=== PATIENT | female | born 1990 | race Caucasian/White ===

== ENCOUNTER 2024-07-14 03:47 | Emergency (ER) | payer OTHER, SELFPAY ==
[2024-07-14 03:51] VITALS: BP 133/88; PULSE 96; TEMP 36.6; O2SAT 96; BMI 34.5
--- NOTE | 2024-07-14 04:00 | ECG_ITS ---
[facility] Test Date: 2024-07-14 Pat Name: MEHNAZ GILLILAND Department: Room: - Gender: Female Tank Pumper Panelboard: : 1990 Requested By: [id number] Order Number: [id number] Reading MD: MEGHANA CERVANTES Measurements Intervals [place] Rate: 103 P: 45 NM: 170 QRS: 35 QRSD: 88 T: 36 QT: 330 QTc: 390 Interpretive Statements 1120 Sinus tachycardia 2420 RSR (QR) in lead V1/V2, consistent with right ventricular conduction delay 3434 Septal myocardial infarction, age undetermined 9150 abnormal ECG No previous ECG available for comparison Electronically Signed On 07-14-2024 20:55:41 EDT by MEGHANA CERVANTES
--- NOTE | 2024-07-14 04:12 | ED_ITS ---
HPI HPI - General Adult General Chief complaint: Upper Respiratory Infection Stated complaint: vomiting Time Seen by Provider: 07/14/24 04:09 Source: patient Mode of arrival: walk-in Limitations: no limitations History of Present Illness HPI narrative: history of hysterectomy and oophorectomy due to endometriosis. Uterus removed last year and ovaries removed about 2 weeks ago. Now presents with recurrent vomiting since around 3pm yesterday. No hematemsis or diarrhea. no fever or chills. Additionally complains of sharp left chest pain radiating into her shoulder and lasting a few minutes Related Data Home Medications ?Medication ?Instructions ?Recorded ?Confirmed conjugated estrogens 0.3 mg tablet mg 07/14/24 (Premarin) loratadine 10 mg tablet 10 mg PO DAILY 07/14/24 07/14/24 (Allerclear) minocycline 50 mg capsule mg 07/14/24 montelukast 10 mg tablet mg 07/14/24 pantoprazole 40 mg tablet,delayed mg PO 07/14/24 release Allergies Allergy/AdvReac Type Severity Reaction Status Date / Time aspirin Allergy Unknown Abdominal Verified 07/14/24 03:55 Pain meloxicam [From Mobic] Allergy Unknown Abdominal Verified 07/14/24 03:55 Pain omeprazole [From Prilosec] Allergy Unknown Abdominal Verified 07/14/24 03:55 Pain oxycodone [From Percocet] Allergy Abdominal Verified 07/14/24 03:55 Pain propoxyphene Allergy Abdominal Verified 07/14/24 03:55 [From Darvocet-N] Pain Opioid HPI Opioid Management Most Recent Opioid Data: No Data to Display Review of Systems ROS Status of ROS 10 or more systems reviewed and unremark able except as noted in history and below PFSH PFSH Social History Little interest or pleasure in doing things: not at all Feeling down, depressed, or hopeless: not at all Exam Constitutional Vital Signs, click to edit/add: Last Vital Signs Temp 97.8 F 07/14/24 03:51 Pulse 96 H 07/14/24 03:51 Resp 18 07/14/24 03:51 BP 133/88 07/14/24 03:51 Pulse Ox 96 07/14/24 03:51 O2 Del Method Room Air 07/14/24 03:51 Common normals: no apparent distress, average body habitus, oriented x3, no limitations, healthy appearing, alert and well nourished [facility] Common normals: normocephalic and head/scalp atraumatic Eye Common normals: PERRL, EOMs intact bilaterally, conjunctivae normal and no scleral icterus Chest Common normals: inspection of chest normal and palpation of chest normal Respiratory Common normals: normal respiratory effort, no retractions, no use of accessory muscles and clear to auscultation bilaterally Cardio Common normals: regular rate, regular rhythm, S1 normal heart sound and S2 normal heart sound GI Common normals: Normal to inspection, nondistended, normoactive bowel sounds present and soft to palpation Other: mild tenderness lower quad related to recent surgey Extremity Common normals: normal to inspection and full ROM Neuro Common normals: oriented x3, CN's II-XII intact bilaterally, moves all extremities and no focal motor deficits Psych Appearance: grossly normal Course Vital Signs Vital signs: Vital Signs Temperature 97.8 F 07/14/24 03:51 Pulse Rate 96 H 07/14/24 03:51 Respiratory Rate 18 07/14/24 03:51 Blood Pressure 133/88 07/14/24 03:51 Pulse Oximetry 96 07/14/24 03:51 Oxygen Delivery Method Room Air 07/14/24 03:51 Temperature 97.8 F 07/14/24 03:51 Pulse Rate 96 H 07/14/24 03:51 Respiratory Rate 18 07/14/24 03:51 Blood Pressure 133/88 07/14/24 03:51 Pulse Oximetry 96 07/14/24 03:51 Oxygen Delivery Method Room Air 07/14/24 03:51 Medical Decision Making [facility] Narrative Medical decision making narrative: patient presents with recurrent vomiting. labs with mild elevation of alk phos and elevated lactic acid. Patient medicated with zofran and hydrated with IV NS. still has nausea despite zofran. Given phenergan and is feeling better. xray abdomen without worrisome findings. WBC normal. patient now feeling better after 2nd L NS. Discharged home with a prescription of phenergan Lab Data Labs: Lab Results 07/14/24 07/14/24 Range/Units 04:00 05:00 WBC 11.8 H (4.0-11.0) 10^3/uL RBC 4.79 (4.20-5.40) 10^6/uL Hgb 14.5 (12.0-16.0) g/dL Hct 42.2 (36.0-48.0) % MCV 88.1 (81.0-99.0) fL MCH 30.3 (26.7-34.0) pg MCHC 34.4 (29.9-35.2) g/dL RDW 11.8 (11.0-15.0) % Plt Count 332 (150-450) 10^3/uL MPV 8.8 L (9.5-13.5) fL Neut % (Auto) 63.6 (43.0-75.0) % Lymph % (Auto) 27.9 (20.5-60.0) % [place] % (Auto) 6.0 (1.7-12.0) % Eos % (Auto) 1.9 (0.9-7.0) % Baso % (Auto) 0.3 (0.2-2.0) % Neut # (Auto) 7.5 H (1.4-6.5) 10^3/uL Lymph # (Auto) 3.3 (1.2-3.8) 10^3/uL [place] # (Auto) 0.7 (0.3-0.8) 10^3/uL Eos # (Auto) 0.2 (0.0-0.7) 10^3/uL Baso # (Auto) 0.0 (0.0-0.1) 10^3/uL Abs Immat Gran (auto) 0.04 H (0.00-0.03) 10^3/uL Imm/Tot Granulo (auto) 0.3 (0.0-0.5) % D-Dimer 0.42 (<=0.59) mg/L FEU Sodium 133 L (136-145) mmol/L Potassium 3.6 (3.5-5.1) mmol/L Chloride 99 (98-107) mmol/L Carbon Dioxide 24.4 (21.0-32.0) mmol/L Anion Gap 13.2 BUN 13.0 (7.0-18.0) mg/dL Creatinine 0.94 (0.55-1.02) mg/dL Est GFR ( Amer) >60 (>=60 mL/min/1.73m^2) Est GFR (Non-Af Amer) >60 (>=60 mL/min/1.73m^2) BUN/Creatinine Ratio 13.8 Glucose 129 H (74-106) mg/dL Lactate 2.6 H* (0.4-2.0) mmol/L Calcium 9.5 (8.5-10.1) mg/dL Total Bilirubin 0.5 (0.2-1.0) mg/dL Direct Bilirubin 0.1 (0.0-0.2) mg/dL AST 16 (15-37) U/L ALT 39 (14-59) U/L Alkaline Phosphatase 119 H (46-116) U/L Troponin I High Sens <4.0 L (4.0-51.3) pg/mL Total Protein 7.8 (6.4-8.2) g/dL Albumin 3.7 (3.4-5.0) g/dL Globulin 4.1 g/dL Albumin/Globulin Ratio 0.9 Lipase 60.0 (16.0-77.0) U/L Urine Color Lt. yellow (YELLOW) Urine Clarity Clear (CLEAR) Urine pH 7.5 (5.0-9.0) Ur Specific [place] 1.010 (1.005-1.025) Urine Protein Negative (NEG/TRACE) mg/dL Urine Glucose (UA) Negative (NEGATIVE) mg/dL Urine Ketones Negative (NEGATIVE) mg/dL Urine Occult Blood Negative (NEGATIVE) Urine Nitrite Negative (NEGATIVE) Urine Bilirubin Negative (NEGATIVE) Urine Urobilinogen 0.2 (0.2-1.0) EU/dL Ur Leukocyte Esterase Negative (NEGATIVE) Imaging Data Chest x-ray: Radiologist's impression: ITS Impressions Chest/Abdomen X-ray 07/14/24 04:16 IMPRESSION: 1. Clear lungs. 2. Normal bowel gas pattern. 3. No free air or suspicious abdominal or pelvic findings. Electronically authenticated by: MARIO SALEEM Date: 07/14/2024 05:00 Abdominal x-ray: Radiologist's impression: ITS Impressions Chest/Abdomen X-ray 07/14/24 04:16 IMPRESSION: 1. Clear lungs. 2. Normal bowel gas pattern. 3. No free air or suspicious abdominal or pelvic findings. Electronically authenticated by: MARIO SALEEM Date: 07/14/2024 05:00 Discharge Plan Discharge Chief Complaint: Upper Respiratory Infection Clinical Impression: Gastroenteritis Patient Disposition: Home, Self-Care Prescriptions / Home Meds: No Action pantoprazole 40 mg tablet,delayed release (DR/EC) PO minocycline 50 mg capsule montelukast 10 mg tablet Premarin 0.3 mg tablet loratadine [Allerclear] 10 mg tablet 10 mg PO DAILY Print Language: German Instructions: Acute Nausea and Vomiting (ED) Referrals: GRETEL MORALEZ [Primary Care Provider] - 1 week
--- NOTE | 2024-07-14 04:16 | XR_ITS ---
The [address] [address] Patient Name: MEHNAZ GILLILAND MRN: [id number] date: 1990 Sex: F Assigned Patient Location: ER Current Patient Location: ER Accession/Order Number: [id number] Exam Date: 07/14/2024 04:30 Report Date: 07/14/2024 05:00 At the request of: ENRIQUE RDZ Procedure: XR acute abdomen series EXAMINATION: XR acute abdomen series HISTORY: vomiting COMPARISON: No relevant comparison available. FINDINGS: LUNGS: No infiltrate, pneumothorax, or pleural effusion. MEDIASTINUM: No abnormal widening. BOWEL GAS PATTERN: Non-obstructed. FREE AIR: None. CALCIFICATIONS: None significant. BONES: No fracture or visible bone lesion. OTHER: Negative. XR/XR acute abdomen series IMPRESSION: 1. Clear lungs. 2. Normal bowel gas pattern. 3. No free air or suspicious abdominal or pelvic findings. Electronically authenticated by: MARIO SALEEM Date: 07/14/2024 05:00
[2024-07-14 04:22] LABS: Basophils Percent Auto 0.3 % (0.2-2.0); Eosinophils Absolute Auto 0.2 10^3/uL (0.0-0.7); Eosinophils Percent Auto 1.9 % (0.9-7.0); Hematocrit 42.2 % (36.0-48.0); Hemoglobin 14.5 g/dL (12.0-16.0); Immature Granulocytes Abs Auto 0.04 10^3/uL (0.00-0.03); Immature Granulocytes Pct Auto 0.3 % (0.0-0.5); Lymphocytes Absolute Auto 3.3 10^3/uL (1.2-3.8); Lymphocytes Percent Auto 27.9 % (20.5-60.0); Mean Corpuscular HGB Conc 34.4 g/dL (29.9-35.2); Mean Corpuscular Hemoglobin 30.3 pg (26.7-34.0); Mean Corpuscular Volume 88.1 fL (81.0-99.0); Mean Platelet Volume 8.8 fL (9.5-13.5); Monocytes Absolute Auto 0.7 10^3/uL (0.3-0.8); Neutrophils Absolute Auto 7.5 10^3/uL (1.4-6.5); Neutrophils Percent Auto 63.6 % (43.0-75.0); Platelet Count 332 10^3/uL (150-450); Red Blood Count 4.79 10^6/uL (4.20-5.40); Red Cell Distribution Width 11.8 % (11.0-15.0); White Blood Count 11.8 10^3/uL (4.0-11.0)
[2024-07-14 04:32] LABS: D Dimer 0.42 mg/L FEU (<=0.59)
[2024-07-14] MEDS: ONDANSETRON PF 4 MG/2 ML VIAL IV (04:32)
[2024-07-14] MEDS: 0.9 % SODIUM CHLORIDE 1,000 ML 999 ML IV ×2 (04:32→05:40)
[2024-07-14 04:37] LABS: Alanine Aminotransferase 39 U/L (14-59); Albumin Globulin Ratio 0.9; Albumin Level 3.7 g/dL (3.4-5.0); Alkaline Phosphatase 119 U/L (46-116); Anion Gap 13.2; Aspartate Amino Transferase 16 U/L (15-37); BUN Creatinine Ratio 13.8; Bilirubin Direct 0.1 mg/dL (0.0-0.2); Bilirubin Total 0.5 mg/dL (0.2-1.0); Calcium 9.5 mg/dL (8.5-10.1); Carbon Dioxide 24.4 mmol/L (21.0-32.0); Chloride 99 mmol/L (98-107); Estimated GFR (African America >60 (>=60 mL/min/1.73m^2); Estimated GFR (Non-African Ame >60 (>=60 mL/min/1.73m^2); Globulin 4.1 g/dL; Glucose 129 mg/dL (74-106); Potassium 3.6 mmol/L (3.5-5.1); Sodium 133 mmol/L (136-145); Total Protein 7.8 g/dL (6.4-8.2); Troponin I High Sensitivity <4.0 pg/mL (4.0-51.3)
[2024-07-14 04:40] LABS: Lactate/Lactic Acid 2.6 mmol/L (0.4-2.0)
[2024-07-14 05:10] LABS: Bilirubin Urine NEGATIVE (NEGATIVE); Blood Urine NEGATIVE (NEGATIVE); Clarity Urine CLEAR (CLEAR); Color Urine LT. YELLOW (YELLOW); Glucose Urine UA NEGATIVE (NEGATIVE); Ketones Urine NEGATIVE (NEGATIVE); Leukocyte Esterase Urine NEGATIVE (NEGATIVE); Nitrite Urine NEGATIVE (NEGATIVE); Protein Urine NEGATIVE (NEG/TRACE); Urobilinogen Urine 0.2 EU/dL (0.2-1.0); pH Urine 7.5 (5.0-9.0)
[2024-07-14 05:11] LABS: Urine Microscopic Indicated NO
[2024-07-14] MEDS: PROMETHAZINE HCL 25 MG in 0.9 % SODIUM CHLORIDE 50 ML 204 MG IV (05:40)
== END 2024-07-14 06:44 | disposition home or self-care (01) ==
PROVIDERS: Emergency Provider Internal Medicine; PCP Internal Medicine
DX: K52.9 Noninfective gastroenteritis and colitis, unspecified (principal); Z90.710 Acquired absence of both cervix and uterus; Z90.722 Acquired absence of ovaries, bilateral
CPT/HCPCS: 36415; 74022; 80053; 80076; 81003; 83605; 83690; 84484; 85025; 85378; 93005; 96361; 96365; 96375; 99285; J2250; J2405

== ENCOUNTER 2025-05-30 19:16 | Emergency (ER) | payer OTHER, SELFPAY ==
--- OUTSIDE RECORDS SUMMARY | 2016-07-14 11:15 | XMS_ITS | Encounter Summary ---
Author Organization [facility] Address [address], [address] [place] [address] Care Team Providers Care Cutlet Maker Pork Name Role Phone Yamil Nunes MD Primary Care Provider [phone] [phone] Encounter Details Date Type Department Care Team (Late st Contact Info) Description 07/14/2016 11:15 AM EDT Hospital Encounter [facility] [address] [place] [address] Yamil Nunes MD [address] [place] [address] [place] Social History Tobacco Use Types Packs/Day Years Used Date Smoking Tobacco: Former Cigarettes Q uit: 01/13/2006 Smokeless Tobacco: Never Alcohol Use Standard Drinks/Week Comments No 0 (1 standard drink = 0.6 oz pur e alcohol) [facility] Utilities Answer Date Recorded In the past 12 months has [employer] electric, gas, oil, or water company threatened to shut off services in your home? No 12/09/2024 Overall Financial Resource Strain (CARDIA) Answe r Date Recorded How hard is it for you to pa y for the very basics like food, housing, medical care, and heating? Not hard at all 06/18/2024 PHQ-2 Answer Date Recorded PHQ-9 Total Score 0 01/22/2025 Hunger Vital Sign Answer Date Recorded Within the past 12 months, y ou worried that your food would run out before you got the money to buy more. Never true 06/18/20 24 Within the past 12 months, t he food you bought just didn't last and you didn't have money to get more. Never true 06/18/2024 PRAPARE - Transportation Answer Date Re corded Lack of Transportation (Medical) Not on file 06/18/2024 In the past 12 months, has l ack of transportation kept you from meetings, work, or from getting things needed for daily living? No 06/18/2024 Housing Stability Vital Sign Answer Shar e Recorded Unable to Pay for Housing in the Last Year Not o n file 02/12/2024 Number of Places Lived in the Last Year Not on f ile 02/12/2024 In the last 12 months, was t here a time when you did not have a steady place to sleep or slept in a usp (including now)? No 02/12/2024 Housing Stability Vital Sign Answer Shar e Recorded Unable to Pay for Housing in the Last Year Not o n file 12/09/2024 In the past 12 months, how m any times have you moved where you were living? 0 12/09/2024 At any time in the past 12 m onths, were you homeless or living in a usp (including now)? No 12/09/2024 Food Insecurity Answer Date Recorded Within the past 12 months, y ou worried that your food would run out before you got the money to buy more. 1 12/09/2024 Within the past 12 months, t he food you bought just didn't last and you didn't have money to get more. 1 12/09/2024 Interpersonal Safety Domain Source: IP Abuse Scr eening Answer Date Recorded Physical abuse Denies 07/05/2024 Verbal abuse Denies 07/05/2024 Emotional abuse Denies 07/05/2024 Financial abuse Denies 07/05/2024 Sexual abuse Denies 07/05/2024 Comments No Sex and Gender Information Value Date Recorded Sex Assigned at Female 12/09/2024 6:54 AM EST Legal Sex Female 6:58 PM EST Gender Identity Female 12/09/2024 6:54 AM EST Sexual Orientation Straight 12/09/2024 6: 54 AM EST COVID-19 Exposure Response Date Recorded In the last 10 days, have yo u been in contact with someone who was confirmed or suspected to have Coronavirus/COVID-19? No / Unsure 01/16/2023 7:12 AM EDT documented as of this encounter [place] Notes * [place] - 07/14/2016 1:30 PM EDT [facility] Outpatient Physical Therapy Daily Note Patient: Denise Harley : 1990 Referring Practitioner: Yamil Nunes MD Referral Date : 05/30/16 Date: 07/14/2016 Referring Practitioner: Yamil Nunes MD Referral Date : 05/30/16 Diagnosis: R shoulder pain Onset Date: 12/07/15 (Getting progressively worse since that time.) PT Insurance Information: [place] Total # of Visits Approved: 12 Per Physician Order Total # of Visits to Date: 10 No Show: 0 Canceled Appointment: 0 Pre-Treatment Pain: 11/18 Subjective: 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 Exercises/Modalities/Manual: See DocFlow Sheet Assessment Assessment: Tnenderness biceps tendon. Strength has improved as well as ROM but cont to aggervaite shld during work duties. Flexion 4+/5. Patient Education Patient Education: Reviewed impingement zones Pt verbalized/demonstrated good understanding: [x] Yes [] No, pt required further clarification. Plan Plan: Plan of care initiated Goals (Total # of Visits to Date: 10) Short Term Goals - Time Frame for Short term goals: 3 weeks Short term goal 1: Pt will be prescribed and educated on HEP--met Short term goal 2: Pt will demonstrate R shoulder flexion AROM 100 degrees to allow for less difficulty with work-related tasks.--met Knife Grinder Goals - Time Frame for waxer floor goals : 6 weeks waxer floor goal 1: Pt will be independent with HEP for maintenance of progress made with PT. senior living goal 2: Pt will demonstrate R shoulder AROM WNL in all planes for ease of reaching overhead and dressing. waxer floor goal 3: Pt will demo min TTP of R corocoid and pec musculature for improved functional mobility. waxer floor goal 4: Pt will report </= 4/10 pain on average in R shoulder for ease of washing hairand reaching overhead. Post Treatment Pain: 2/10 Time In: 1115 Time Out: 1200 Timed Code Treatment Minutes: 45 Minutes Total Treatment Time: 45 Minutes [place] Date: 07/14/2016 Cosigned by Sheyla Prieto, PT at 07/20/2016 8:45 AM EDT documented in this encounter Plan of Treatment Upcoming Encounters Date Type Department Care Team (Late st Contact Info) Description 06/20/2025 2:30 PM EDT Office Visit Leanna Nunes MD [facility] [address] [place] [address] Mariola Jovel APRN - RN [facility] INPATIENT SERVICES [address] [place] [address] annual wellness; f.u. labs 07/03/2025 1:00 PM EDT Office Visit [facility] OBSTETRICS & GYNECOLOGY Part [address] [place] [address] Ling Davidson APRN - ELLEN [address] [place] [address] [address] [place] [address] 4 month med check. 07/29/2025 12:40 PM EDT Office Visit [facility] Kidney and Hypertension [address] [place] [address] Jonathon Shane MD [address] [place] [address] [address] [place], [place] [id number] 4 month follow up; decreased urine output; labs 03/10/2026 1:15 PM EDT Office Visit [facility] OBSTETRICS & [facility]YNECOLOGY Part of [address] [place] [address] Ling Davidson APRN - [address] [place], [place] [phone] yearly documented as of this encounter Visit Diagnoses Not on filedocumented in this encounter Care Teams Cutlet Maker Pork Relationship Specialty Start Date End Date Yamil Nunes MD [address] [place] [address] PCP - General Internal Medicine 01/04/16 01/20/25 documented as of this encounter
--- OUTSIDE RECORDS SUMMARY | 2016-07-29 10:15 | XMS_ITS | Encounter Summary ---
Author Organization [facility] Address [address], [address] [place] [address] Care Team Providers Care Firesetter Name Role Phone Yamil Nunes MD Primary Care Provider [phone] Encounter Details Date Type Department Care Team (Late st Contact Info) Description 07/29/2016 10:15 AM EDT Hospital Encounter [facility] Physical [facility] [address] [place] [address] Yamil Nunes MD [address] [place] [address] Lucy Qureshi, PT Social History Tobacco Use Types Packs/Day Years Used Date Smoking Tobacco: Former Cigarettes Q uit: 01/13/2006 Smokeless Tobacco: Never Alcohol Use Standard Drinks/Week Comments No 0 (1 standard drink = 0.6 oz pur e alcohol) [facility] Utilities Answer Date Recorded In the past 12 months has [employer] electric, gas, oil, or water company threatened [...] place to sleep or slept in a skilled nursing (including now)? No 02/12/2024 Housing Stability Vital Sign Answer Shar e Recorded Unable to Pay for Housing in the Last Year Not o n file 12/09/2024 In the past 12 months, how m any times have you moved where you were living? 0 12/09/2024 At any time in the past 12 m onths, were you homeless or living in a skilled nursing (including now)? No 12/09/2024 Food Insecurity Answer [...] as of this encounter [facility] Notes * QureshiLucy, PT - 07/29/2016 10:54 AM EDT [facility] Outpatient Physical Therapy Daily Note Patient: Denise Harley : 1990 Referring Practitioner: Yamil Nunes MD Referral Date : 05/30/16 Date: 07/29/2016 Referring Practitioner: Yamil Nunes MD Referral Date : 05/30/16 Diagnosis: R shoulder pain Onset Date: 12/07/15 (Getting progressively worse since that time.) PT Insurance Information: [place] Total # of Visits Approved: 20 Per Physician Order Total # of Visits to Date: 12 No Show: 0 Canceled Appointment: 1 Pre-Treatment Pain: 3/10 Subjective: Pt continues to report a 3/10 pain in her SHLD. Pt states she saw Dr. Kemp and he is suggesting an MRI upon insurance approval and to continue with therapy until then. Exercises/Modalities/Manual: See DocFlow Sheet Assessment Assessment: Pt completed all exercises with good tolerance Patient Education Patient Education: reviewed HEP Pt verbalized/demonstrated good understanding: [x] Yes [] No, pt required further clarification. Plan Plan: Continue with current plan Goals (Total # of Visits to Date: 12) Short Term Goals - Time Frame for Short term goals: 3 weeks Short term goal 1: Pt will be prescribed and educated on HEP--met Short term goal 2: Pt will demonstrate R shoulder flexion AROM 100 degrees to allow for less difficulty with work-related tasks.--met Correction Goals - Time Frame for alf goals : 6 weeks terminal block assembler goal 1: Pt will be independent with HEP for maintenance of progress made with PT. --MET. terminal block assembler goal 2: Pt will demonstrate R shoulder AROM WNL in all planes for ease of reaching overhead and dressing.- progressing alf goal 3: Pt will demo min TTP of R corocoid and pec musculature for improved functional mobility.- progressing alf goal 4: Pt will report </= 4/10 pain on average in R shoulder for ease of washing hairand reaching overhead.--progrressing Post Treatment Pain: 3/10 Time In: 1012 Time Out: 1052 Timed Code Treatment Minutes: 40 Minutes Total Treatment Time: 40 Minutes Lucy Qureshi Date: 07/29/2016 documented in this encounter Plan of Treatment Upcoming Encounters Date Type Department Care Team (Late st Contact Info) Description 06/20/2025 2:30 PM EDT Office Visit [facility] [address] [place] [address] Mariola Jovel APRN - NUCLEAR MEDICINE TECHNOLOGIST [address] [place] [address] annual wellness; f.u. labs 07/03/2025 1:00 PM EDT Office Visit [facility] OBSTETRICS & GYNECOLOGY [address] [address] Ling Davidson APRN - CNDavid [address] [place] [address] Dr [address] [place] [address] 4 month med check. 07/29/2025 12:40 PM EDT Office Visit [facility] Kidney and Hypertension [address] [place] [address] Jonathon Shane MD [address] [place] [address] [address] [place], [place] [id number] 4 month follow up; decreased urine output; labs 03/10/2026 1:15 PM EDT Office Visit [facility] OBSTETRICS & GYNECOLOGY [address] [place] [address] Ling Davidson APRN - CNDavid [address] [place] [address] Dr Sal [address] [place] [address] yearly documented as of this encounter Visit Diagnoses Not on filedocumented in this encounter Care Teams Firesetter Relationship Specialty Start Date End Date Yamil Nunes MD [address] [place] [address] PCP - General Internal Medicine 01/04/16 01/20/25 documented as of this encounter
--- OUTSIDE RECORDS SUMMARY | 2016-08-02 10:45 | XMS_ITS | Encounter Summary ---
Author Organization [facility] Address [address], [address] [place] [address] Care Team Providers Care Truck Terminal Manager Name Role Phone Yamil Nunes MD Primary Care Provider [phone] [phone] Encounter Details Date Type Department Care Team (Late st Contact Info) Description 08/02/2016 10:45 AM EDT Hospital Encounter [facility] Physical Therapy [address] [place] [address] Yamil Nunes MD [address] [place] [address] [place] Social History Tobacco Use Types Packs/Day Years Used Date Smoking Tobacco: Former Cigarettes Q uit: 01/13/2006 Smokeless Tobacco: Never Alcohol Use Standard Drinks/Week Comments No 0 (1 standard drink = 0.6 oz pur e alcohol) [facility] Utilities Answer Date Recorded In the past 12 months has [employer] electric, gas, oil, or water company threatened [...] place to sleep or slept in a mcfp (including now)? No 02/12/2024 Housing Stability Vital Sign Answer Shar e Recorded Unable to Pay for Housing in the Last Year Not o n file 12/09/2024 In the past 12 months, how m any times have you moved where you were living? 0 12/09/2024 At any time in the past 12 m onths, were you homeless or living in a mcfp (including now)? No 12/09/2024 Food Insecurity Answer [...] encounter [place] Notes * [place] - 08/02/2016 11:29 AM EDT [facility] Outpatient Physical Therapy Daily Note Patient: Denise Harley : 1990 Referring Practitioner: Yamil Nunes MD Referral Date : 05/30/16 Date: 08/02/2016 Referring Practitioner: Yamil Nunes MD Referral Date : 05/30/16 Diagnosis: R shoulder pain Onset Date: 12/07/15 (Getting progressively worse since that time.) PT Insurance Information: [place] Total # of Visits Approved: 20 Per Physician Order Total # of Visits to Date: 13 No Show: 0 Canceled Appointment: 1 Pre-Treatment Pain: 2/10 Subjective: 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 Exercises/Modalities/Manual: See DocFlow Sheet Assessment Assessment: Strength is 4+/5 in right shld . Has MRI next monday, plan to cont with scapular strengthening as tolerated Patient Education Patient Education: reviewed HEP Pt verbalized/demonstrated good understanding: [x] Yes [] No, pt required further clarification. Plan Plan: Continue with current plan Goals (Total # of Visits to Date: 13) Short Term Goals - Time Frame for Short term goals: 3 weeks Short term goal 1: Pt will be prescribed and educated on HEP--met Short term goal 2: Pt will demonstrate R shoulder flexion AROM 100 degrees to allow for less difficulty with work-related tasks.--met Guidance Director Goals - Time Frame for roasterman goals : 6 weeks M[facility] goal 1: Pt will be independent with HEP for maintenance of progress made with PT. --MET. MCC goal 2: Pt will demonstrate R shoulder AROM WNL in all planes for ease of reaching overhead and dressing.- progressing MCC goal 3: Pt will demo min TTP of R corocoid and pec musculature for improved functional mobility.- progressing MCC goal 4: Pt will report </= 4/10 pain on average in R shoulder for ease of washing hairand reaching overhead.--progrressing Post Treatment Pain: 2/10 Minutes Time Calculation Start Time: 1045 Stop Time: 1130 Time Calculation: 45 [place] Date: 08/02/2016 Cosigned by Sheyla Prieto, PT at 08/03/2016 11:13 AM EDT documented in this encounter Plan of Treatment Upcoming Encounters Date Type Department Care Team (Late st Contact Info) Description 06/20/2025 2:30 PM EDT Office Visit Leanna Nunes MD [facility] [address] [place] [address] Mariola Jovel APRN - CNP [address] [place] [address] annual wellness; f.u. labs 07/03/2025 1:00 PM EDT Office Visit [facility] OBSTETRICS & GYNECOLOGY [address] [place] [address] Ling Davidson APRN - ELLEN [address] [place] [address] Dr Sal [address] [place] [address] 4 month med check. 07/29/2025 12:40 PM EDT Office Visit [facility] Kidney and Hypertension [address] [place] [address] Jonathon Shane MD [address] [place] [address] [address] [place], [place] [phone] 4 month follow up; decreased urine output; labs 03/10/2026 1:15 PM EDT Office Visit [facility] OBSTETRICS & GYNECOLOGY [address] [place] [address] Ling Davidson APRN - ELLEN [address] [place] [address] Dr [address] [place] [address] yearly documented as of this encounter Visit Diagnoses Not on filedocumented in this encounter Care Teams Truck Terminal Manager Relationship Specialty Start Date End Date Yamil Nunes MD [address] [place] [id number] PCP - General Internal Medicine 01/04/16 01/20/25 documented as of this encounter
--- OUTSIDE RECORDS SUMMARY | 2016-08-08 11:45 | XMS_ITS | Encounter Summary ---
Author Organization [facility] Address [address] [place] [address] Care Team Providers Care Plumbing And Heating Contractor Name Role Phone Yamil Nunes MD Primary Care Provider [phone] [phone] Encounter Details Date Type Department Care Team (Late st Contact Info) Description 08/08/2016 11:45 AM EDT Hospital Encounter [facility] Physical Therapy [address] [place] [address] Yamil Nunes MD [address] [place] [address] Sheyla Jarvis, JOSE Social History Tobacco Use Types Packs/Day Years Used Date Smoking Tobacco: Former Cigarettes Q uit: 01/13/2006 Smokeless Tobacco: Never Alcohol Use Standard Drinks/Week Comments No 0 (1 standard drink = 0.6 oz pur e alcohol) [facility] Utilities Answer Date Recorded In the past 12 months has [employer] electric, gas, oil, or water company threatened [...] place to sleep or slept in a assisted (including now)? No 02/12/2024 Housing Stability Vital Sign Answer Shar e Recorded Unable to Pay for Housing in the Last Year Not o n file 12/09/2024 In the past 12 months, how m any times have you moved where you were living? 0 12/09/2024 At any time in the past 12 m [place], were you homeless or living in a assisted (including now)? No 12/09/2024 Food Insecurity Answer [...] as of this encounter [place] Notes * Sheyla Prieto, PT - 08/08/2016 12:25 PM EDT [facility] Outpatient Physical Therapy Daily Note Patient: Denise Harley : 1990 Referring Practitioner: Yamil Nunes MD Referral Date : 05/30/16 Date: 08/08/2016 Referring Practitioner: Yamil Nunes MD Referral Date : 05/30/16 Diagnosis: R shoulder pain Onset Date: 12/07/15 (Getting progressively worse since that time.) PT Insurance Information: [place] Total # of Visits Approved: 20 Per Physician Order Total # of Visits to Date: 15 No Show: 0 Canceled Appointment: 1 Pre-Treatment Pain: 0/10 Subjective: Pt states she has an MRI on Monday. Pt denies pain upon arrival. Exercises/Modalities/Manual: See DocFlow Sheet Assessment Assessment: Pt reports pain with seated cybex rows, therefore deferred this ex. Pt performs body blade with arm at side as well as 90 degrees shoulder flexion; pt has minor discomfort in shoulder with flexed position. Patient Education Patient Education: Proper form with new exercises. Pt verbalized/demonstrated good understanding: [x] Yes [] No, pt required further clarification. 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 --MET. local company intermodal truck driver goal 2: Pt will demonstrate R shoulder AROM WNL in all planes for ease of reaching overhead and dressing.- progressing local company intermodal truck driver goal 3: Pt will demo min TTP of R corocoid and pec musculature for improved functional mobility.- progressing local company intermodal truck driver goal 4: Pt will report </= 4/10 pain on average in R shoulder for ease of washing hairand reaching overhead.--progrressing Post Treatment Pain: 0/10 Time Calculation Start Time: 1145 Stop Time: 1223 Time Calculation: 38 Sheyla Prieto PT, DPT Date: 08/08/2016 documented in this encounter Plan of Treatment Upcoming Encounters Date Type Department Care Team (Late st Contact Info) Description 06/20/2025 2:30 PM EDT Office Visit Leanna Nunes MD [facility] [address] [place] [address] Mariola Jovel APRN - CNP [address] [place] [address] annual wellness; f.u. labs 07/03/2025 1:00 PM EDT Office Visit [facility] OBSTETRICS & GYNECOLOGY [address] [place] [address] Ling Davidson APRN - ELLEN [address] [place] [address] Dr Sal [address] [place] [address] 4 month med check. 07/29/2025 12:40 PM EDT Office Visit [facility] Kidney and Hypertension [address] [place] [address] Jonathon Shane MD [address] [place] [address] [address] [place] [address] 4 month follow up; decreased urine output; labs 03/10/2026 1:15 PM EDT Office Visit [facility] OBSTETRICS & GYNECOLOGY [address] [place] [address] Ling Davidson, FABIÁN - CNDavid [address] [place] [address] Dr [address] [place] [address] yearly documented as of this encounter Visit Diagnoses Not on filedocumented in this encounter Care Teams Plumbing And Heating Contractor Relationship Specialty Start Date End Date Yamil Nunes MD [address] [place] [id number] PCP - General Internal Medicine 01/04/16 01/20/25 documented as of this encounter
--- OUTSIDE RECORDS SUMMARY | 2016-08-15 09:30 | XMS_ITS | Encounter Summary ---
Author Organization [facility] Address [address], [address] [place] [address] Care Team Providers Care Booster Pump Operator Name Role Phone Yamil Nunes MD Primary Care Provider [phone] Encounter Details Date Type Department Care Team (Late st Contact Info) Description 08/15/2016 8:30 AM [facility] Hospital Encounter [facility] [address] [place] [address] Yamil Nunes MD [address] [place] [address] Sheyla Jarvis, JOSE Social History Tobacco Use Types Packs/Day Years Used Date Smoking Tobacco: Former Cigarettes Q uit: 01/13/2006 Smokeless Tobacco: Never Alcohol Use Standard Drinks/Week Comments No 0 (1 standard drink = 0.6 oz pur e alcohol) [facility] Utilities Answer Date Recorded In the past 12 months has [employer] electric, gas, oil, or water company threatened [...] place to sleep or slept in a chcf (including now)? No 02/12/2024 Housing Stability Vital Sign Answer Shar e Recorded Unable to Pay for Housing in the Last Year Not o n file 12/09/2024 In the past 12 months, how m any times have you moved where you were living? 0 12/09/2024 At any time in the past 12 m onths, were you homeless or living in a chcf (including now)? No 12/09/2024 Food Insecurity Answer [...] AM EDT documented as of this encounter Discharge Summaries * Sheyla Prieto, PT - 10/19/2016 3:29 PM EST [facility] Outpatient Physical Therapy Discharge Summary Patient: Denise Harley : 1990 Referring physician: Yamil Nunes MD Referring Practitioner: Yamil Nunes MD Diagnosis: R shoulder pain Date Treatment Initiated: 06/07/16 Date of Last Treatment: 08/15/16 PT Visit Information Onset Date: 12/07/15 (Getting progressively worse since that time.) PT Insurance Information: [employer] Total # of Visits Approved: 20 Total # of Visits to Date: 17 Plan of Care/Certification Expiration Date: 08/30/16 No Show: 1 Canceled Appointment: 1 Frequency/Duration Days: 2 times per week Weeks: 6 weeks Treatment Received [x]HP/CP [x]Electrical Stim [x]Therapeutic Exercise []Gait Training []Aquatics [x]Ultrasound [x]Patient Education/HEP []Manual Therapy []Traction []Neuro-jeannine []Soft Tissue Mobs []Home TENS []Iontophoresis []Orthotic casting/fitting []Dry Needling Assessment Assessment: Pt has completed 17 PT visits with initial evaluation on 06/07/16. Pt has been receivinginterventions including therapeutic exercise, manual therapy, US, IFC and cold pack modalities to address R shoulder pain. At pt's last visit on 08/15/16, pt stated she was returning to doctor to review MRI results. Pt had one additional PT appointment scheduled following, with potential plan for hold on PT. Pt cancelled last appointment. At pt's last treatment on 08/15/16, pt cont to have difficulty raising arm overhead; Pt reports average pain level about 1/10 in R shoulder. Pt demo AROM R shoulder flexion 122, ABD 92 with pain at end range. Pt cont to be tender in anterior R shoulder jt nearbiceps insertion. Due to pt cancelling last appointment and failing to schedule additional apopintment, pt will be D/C from PT at this time. Goals Short term goals Time Frame for Short term goals: 3 weeks Short term goal 1: Pt will be prescribed and educated on HEP--met Short term goal 2: Pt will demonstrate R shoulder flexion AROM 100 degrees to allow for less difficulty with work-related tasks.--met detention goals Time Frame for lobsterman goals : 6 weeks detention goal 1: Pt will be independent with HEP for maintenance of progress made with PT. --MET. detention goal 2: Pt will demonstrate R shoulder AROM WNL in all planes for ease of reaching overhead and dressing.- progressing detention goal 3: Pt will demo min TTP of R corocoid and pec musculature for improved functional mobility.- progressing lobsterman goal 4: Pt will report </= 4/10 pain on average in R shoulder for ease of washing hairand reaching overhead.--progrressing- met Reason for Discharge [] Goals Achieved [] Poor Follow Through/Attendance [] Optimal Function Achieved [x] Patient Discharged Self [] Hospitalization [] Physician discharge Thank you for this referral Sheyla Prieto PT, DPT Date: 10/19/2016 documented in this encounter Progress Notes * Sheyla Prieto, PT - 08/15/2016 4:28 PM EST [facility] Outpatient Physical Therapy Daily Note Patient: Denise Harley : 1990 Referring Practitioner: Yamil Nunes MD Referral Date : 05/30/16 Date: 08/15/2016 Referring Practitioner: Yamil Nunes MD Referral Date : 05/30/16 Diagnosis: R shoulder pain Onset Date: 12/07/15 (Getting progressively worse since that time.) PT Insurance Information: [employer] Total # of Visits Approved: 20 Per Physician Order Total # of Visits to Date: 17 No Show: 0 Canceled Appointment: 1 Pre-Treatment Pain: 2/10 Subjective: Pt states she had her MRI done on her shoulder and goes back tomorrow to review results. Pt states she is sore in the shoulder from the needle and also states that she had a bad reaction to the radiation. Pt states her shoulder swelled at the time but swelling has subsided. Current painlevel 2/10. Exercises/Modalities/Manual: See DocFlow Sheet Assessment Assessment: Pt cont to have difficulty raising arm overhead; therefore added pulleys to treatment this date for additional shoulder stretching and mobilization. Pt RTD tomorrow after therapy. Pt instructed on tentative plan to place pt on hold and to call to schedule more appointments if needed following visit with doctor. Patient Education Patient Education: Tentative plan for placing pt on hold and to call and schedule more appointmentsfollowing visit with doctor as instructed. Pt verbalized/demonstrated good understanding: [x] Yes [] No, pt required further clarification. Plan Plan: Continue with current plan Goals (Total # of Visits to Date: 17) Short Term Goals - Time Frame for Short term goals: 3 weeks Short term goal 1: Pt will be prescribed and educated on HEP--met Short term goal 2: Pt will demonstrate R shoulder flexion AROM 100 degrees to allow for less difficulty with work-related tasks.--met [facility]pc Goals - Time Frame for lobsterman goals : 6 weeks lobsterman goal 1: Pt will be independent with HEP for maintenance of progress made with PT. --MET. detention goal 2: Pt will demonstrate R shoulder AROM WNL in all planes for ease of reaching overhead and dressing.- progressing lobsterman goal 3: Pt will demo min TTP of R corocoid and pec musculature for improved functional mobility.- progressing detention goal 4: Pt will report </= 4/10 pain on average in R shoulder for ease of washing hairand reaching overhead.--progrressing- met Post Treatment Pain: 210 Time Calculation Start Time: 829 Stop Time: 912 Time Calculation: 43 Sheyla Prieto PT, DPT Date: 08/15/2016 documented in this encounter Plan of Treatment Upcoming Encounters Date Type Department Care Team (Late st Contact Info) Description 06/20/2025 2:30 PM EDT Office Visit Leanna Nunes MD [address] [address] Mariola Jovel APRN - CODING COMPLIANCE MANAGER [address] [place] [address] annual wellness; f.u. labs 07/03/2025 1:00 PM EDT Office Visit [facility] [address] [place] [address] Ling Davidson APRN - CNM [address] [place] [address] [address] [place] [address] 4 month med check. 07/29/2025 12:40 PM EDT Office Visit [facility] [address] [place] [address] Jonathon Shane MD [address] [place] [address] [address] [place], [place] [id number] 4 month follow up; decreased urine output; labs 03/10/2026 1:15 PM EDT Office Visit [facility] Part of [address] [place] [address] Ling Davidson, FURNACE ATTENDANT - CN[address] [place] [address] yearly documented as of this encounter Visit Diagnoses Not on filedocumented in this encounter Care Teams Booster Pump Operator Relationship Specialty Start Date End Date Yamil Nunes MD [address] [place] [address] PCP - General Internal Medicine 01/04/16 01/20/25 documented as of this encounter
--- OUTSIDE RECORDS SUMMARY | 2025-02-14 12:30 | XMS_ITS ---
Author Organization [facility] Address [address] [facility] [facility] [place] [address] Care Team Providers Care Service Crew Supervisor Name Role Phone Valerie Gresham Primary Care Provider [phone] Dr. Josse Dillard [facility] [phone] REASON FOR VISIT FILLING Encounters Encounter Location Date Provider Diagnosis [facility] [address] [facility] [place] [address] 02/14/2025 Josse Dillard Plan Of Treatment No Information Progress Notes * MEHNAZ GILLILAND MDOB:[birth year] (34 yo F)Acc No.[id number]:02/14/2025 Patient: [facility] Provider: Colleen Dillard DDS :1990 A ge:34 Y S ex:Female Date:02/14/2025 Address[address] Pcp:Valerie Holm Subjective: * Chief Complaints: * 1 . FILLING. * Medical History: Objective: * Vitals: Assessment: Plan: * Treatment: * Images: * Electronic signature of Dr. Josse Dillard , DMD on 05/30/2025 at 07:22 PM EDT Sign off status: Pending * Provider: Colleen Dillard DDS Date: 0 02/14/2025 Generated for Printi ng/Faxing/eTransmitting on: 0 05/30/2025 07:22 PM EDT
--- OUTSIDE RECORDS SUMMARY | 2025-05-30 19:22 | XMS_ITS | Clinical Summary ---
Author Organization [facility] Address [address] [place] [address] Care Team Providers Care Software Analyst Name Role Phone Yamil Nunes MD Primary Care Provider Yamil Alvares DO Unavailable [phone] Allergies Active Allergy Reactions Criticality Noted Date Comments Acetaminophen 03/11/2025 Other Reaction(s): ate lining of stomach Aspirin Nausea And Vomiting Low 05/07/2021 Meloxicam GI intolerance 10/23/2024 Omeprazole GI bleeding,Nausea Only Low 11/17/2012 Other Reaction(s): Unknown Tears up her stomach Oxycodone Other Low 07/14/2024 Other Reaction(s): Other (See Comments), Sweat GI bleed Oxycodone-Acetaminophen GI intolerance 10/23/19 25 Propoxyphene 08/30/2023 Other Reaction(s): ate lining of stomach Medications pantoprazole (ProtoNix) 40 MG EC tablet Active CALCIUM-PHOSPHORU S-VITAMIN D PO Take by mouth 4 Active montelukast (Singulair) 10 MG tablet Take 10 mg by mouth at bedtime Active fish oil ([place]-3) 500 MG capsule Take 500 mg by mouth in the morning. 4 08/09/20 25 Active vitamin E (E200) capsule Take 100 Units by mouth in the morning. Active beclomethasone (Qnasl) 80 MCG/ACT aerosol solutionIndicatio ns:Vasomotor rhinitis,Chronic rhinitis Administer 2 sprays into each nostril Daily 8.7 g 11 4 Active mometasone-formot bentley (Dulera) 100-5 MCG/ACT inhalerIndication s:Mild intermittent asthma without complication (HCC) Inhale 2 puffs in the morning and 2 puffs before bedtime. Rinse mouth with water after use to reduce aftertaste and incidence of candidiasis. Do not swallow.. 13 g 11 4 09/12/20 25 Active ipratropium (Atrovent) 0.06 % nasal sprayIndications: Vasomotor rhinitis,Chronic rhinitis Administer 2 sprays into each nostril in the morning and 2 sprays in the evening and 2 sprays before bedtime. 15 mL 11 4 Active loratadine (Claritin) 10 MG tablet Take 10 mg by mouth Daily Active sertraline (Zoloft) 25 MG tablet Take 25 mg by mouth Daily Active acebutolol (Sectral) 200 MG capsule Take 200 mg by mouth in the morning and 200 mg before bedtime. Active albuterol HFA 90 mcg/act inhaler Inhale 2 puffs every 4 (four) hours if needed for wheezing Active OXcarbazepine (Trileptal) 150 MG tabletIndications :Chronic migraine without aura without status migrainosus, not intractable Take 1 tablet (150 mg) by mouth in the morning and 1 tablet (150 mg) before bedtime. 60 tablet 3 5 01/01/20 26 Active Ute 0.075 MG/24HR APPLY 1 PATCH TOPICALLY TWICE A WEEK 5 Active Active Problems Problem Noted Date Diagnosed Date Asthma 03/11/2025 Dysmenorrhea 03/11/2025 Endometriosis 03/11/2025 Encounter to discuss test results 01/09/2025 Mixed hyperlipidemia 01/09/2025 Family history of syncope 09/19/2024 Syncope and collapse 09/19/2024 Abnormal EKG 08/08/2024 Body mass index (BMI) of 37.0 to 37.9 in adult 1 Dizziness 08/08/2024 Never smoked tobacco 08/08/2024 Other chest pain 08/08/2024 Palpitations 08/08/2024 Shortness of breath 08/08/2024 Post-op pain 01/16/2023 Encounters Date Type Department Care Team Description 04/02/2025 11:20 AM EDT Office Visit [facility] [address] [place] [address] Valentine Galarza MD Dizziness (Primary Dx) 04/02/2025 Bamboo flowsheet [facility] [address] [place] [address] Valentine Galarza MD 04/02/2025 Travel 03/26/2025 External Result Encounter [facility] External Department Unsolicited Valentine Galarza MD 03/12/2025 1:40 PM EDT Office Visit [facility] [address] [place] [address] Valentine Galarza MD VBI (vertebrobasilar insufficiency) (Primary Dx); Dizziness and giddiness; Bilateral impacted cerumen 03/12/2025 Travel 03/10/2025 9:30 AM EDT Clinical Support [facility] [address] [place] [address] Melvi Jaeger, DEBRA-A Dizziness (Primary Dx) from Last 3 Months Family History Medical History Relation Name Comments Asthma Father Jakob Diabetes Father Jakob Hypertension Father Jakob Asthma Father's Sister Ana Diabetes Father's Sister Ana Tics Father's Sister Ana Asthma Maternal Grandfather Arvind Fainting Maternal Grandfather Arvind Cancer Maternal Grandmother Missy Asthma Mother Kelle Migraines Mother Kelle Colon cancer Paternal Grandfather Rick Diabetes Paternal Grandfather Rick Fainting Paternal Grandfather Rick Breast cancer Paternal Grandmother Roxane Diabetes Paternal Grandmother Roxane Hypertension Paternal Grandmother Roxane Ovarian cancer Paternal Grandmother Roxane Stroke Paternal Grandmother Roxane Asthma Sister Latoya Relation Name Status Comments Father Jakob Father's Sister Ana Alive Maternal Grandfather Arvind Alive Maternal Grandmother Missy Alive Mother Kelle Alive Paternal Grandfather Rick Paternal Grandmother Roxane Sister Latoya Alive Social History Tobacco Use Types Packs/Day Years Used Date Smoking Tobacco: Never Smokeless Tobacco: Never Tobacco Cessation:Counseling Given: Not Answered Alcohol Use Standard Drinks/Week Comments Never 0 (1 standard drink = 0.6 oz pure alcohol) Caffeine intake: 2 cans of pop daily Comments Unknown Sex and Gender Information Value Date Recorded Sex Assigned at Not on file Legal Sex Female 6:55 PM EDT Gender Identity Not on file Sexual Orientation Not on file Last Filed Vital Signs Vital Sign Reading Time Taken Comments Blood Pressure 113/73 04/02/2025 11:23 AM EDT Pulse 74 04/02/2025 11:23 AM EDT Temperature - - Respiratory Rate - - Oxygen Saturation 98% 12/31/2024 11:01 AM EDT Inhaled Oxygen Concentration - - Weight 107 kg (235 lb) 04/02/2025 11:23 AM EDT Height 167.6 cm (5' 6 ) 04/02/2025 11:23 AM EDT Body Mass Index 37.93 04/02/2025 11:23 AM EDT Plan of Treatment Not on file Procedures Procedure Name Priority Date/Time Associated Diagnosis Comments CT ANGIOGRAM NECK 03/26/2025 6:0 4 PM EDT AUDITORY FUNCTION TESTS Routine 03/10/2025 10:16 AM EDT from Last 3 Months Results * CT angiogram neck (03/26/2025 6:04 PM EDT) Anatomical Region Laterality Modality Head, Neck Computed Tomogra phy 03/26/2025 6:04 PM EDT Impressions 03/26/2025 6:12 PM EDT No evidence of focal stenosis, aneurysmal dilatation, dissection or occlusion. Impression dictated by: Og Corcoran M.D. 03/26/2025 6:10 PM Dictation Location: [place] [address] Transcribed By: [facility] 03/26/251809 Dictated By: Og Corcoran II, MD 03/26/251803 Signed By: <Electronically signed by Og Corcoran II, MD in OV> 03/26/251809 Narrative 03/26/2025 6:12 PM EDT [facility] [place] [address] CT Scan Report Signed Patient: Denise Harley MR#: [id number] 435 : 1990 Acct:[id number] Age/Sex: 34 / F ADM Date: 03/26/25 Loc: CT Room: Type: [facility] Attending Dr: Valentine Galarza Jr, MD Copies to: VALENTINE GALARZA MD Ordering Provider: VALENTINE GALARZA MD Date of Service: 03/26/25 CT/CT angio neck: G45.0 ([id number]) CT/CT angio head: G45.0 CT angio head, CT angio neck 03/26/2025 3:17 PM SIGNS AND SYMPTOMS: Dizziness, headache intermittently, vertebrobasilar insufficiency CONTRAST: 90 mL of intravenous Isovue-370 TECHNIQUE: Multi-detector CT angiography axial slices of the head and neck were obtained during intravenous administration of IV contrast material. Sagittal, coronal, and 3-D reconstructions were performed and viewed on a separate workstation. CT was performed with one or more of the following dose reduction techniques: Automated exposure control, adjustment of the mA and/or kV according to patient size, or use of iterative reconstruction technique. Stenoses were measured using the NASCET criteria. COMPARISON: 120 01/18/1935 FINDINGS: CTA HEAD: The superior cerebellar arteries, posterior inferior cerebellar arteries, and the basilar artery are within normal limits. The posterior cerebral arteries are unremarkable. The intracranial segments of the internal carotid arteries are within normal limits. There are normal anterior and middle cerebral arteries. Anterior communicating artery is patent. The left posterior communicating artery is hypoplastic which is a normal variant.. The deep venous system and dural venous systems appear to be patent. No bony abnormalities are appreciated. CTA NECK: There is an aberrant right subclavian artery which is a normal variant.. The subclavian arteries are within normal limits. The vertebral arteries arise from the subclavian arteries and are normal in course and caliber up to the skull base. The common and internal carotid arteries are within normal limits. Visualized lung parenchyma is clear. No acute bony abnormalities are identified. The paraspinous soft tissues are within normal limits. CT/CT angio head Procedure Note Og Corcoran MD - 04/17/2025 [facility] Main [place] [address] [place] [address] CT Scan Report Signed Patient: Denise Harley [facility]#: [id number] 435 : 1990Acct:[id number] Age/Sex: 34 / FADM Date: 03/26/25 Loc: CT Room:Type: [facility] Attending Dr: Valentine Galarza Jr, MD Copies to: VALENTINE GALARZA MD Ordering Provider: VALENTINE GALARZA MD Date of Service: 03/26/25 CT/CT angio neck: G45.0 ([id number]) CT/CT angio head: G45.0 CT angio head, CT angio neck 03/26/2025 3:17 PM SIGNS AND SYMPTOMS: Dizziness, headache intermittently, vertebrobasilarinsufficiency CONTRAST: 90 mL of intravenous Isovue-370 TECHNIQUE: Multi-detector CT angiography axial slices of the head and neckwere obtained during intravenous administration of IV contrast material. Sagittal, coronal, and3-D reconstructions were performed and viewed on a separate workstation. CT was performed with oneor more of the following dose reduction techniques: Automated exposure control, adjustment of themA and/or kV according to patient size, or use of iterative reconstruction technique. Stenoses weremeasured using the NASCET criteria. COMPARISON: 120 01/18/1935 FINDINGS: CTA HEAD: The superior cerebellar arteries, posterior inferior cerebellar arteries,and the basilar artery are within normal limits. The posterior cerebral arteries are unremarkable. The intracranial segments of the internal carotid arteries are withinnormal limits. There are normal anterior and middle cerebral arteries. Anterior communicatingartery is patent. The left posterior communicating artery is hypoplastic which is a normal variant..The deep venous system and dural venous systems appear to be patent. No bony abnormalities are appreciated. CTA NECK: There is an aberrant right subclavian artery which is a normal variant..The subclavian arteries are within normal limits. The vertebral arteries arise from thesubclavian arteries and are normal in course and caliber up to the skull base. The common and internalcarotid arteries are within normal limits. Visualized lung parenchyma is clear. No acute bony abnormalities areidentified. The paraspinous soft tissues are within normal limits. CT/CT angio head IMPRESSION: No evidence of focal stenosis, aneurysmal dilatation, dissection orocclusion. Impression dictated by: Og Corcoran M.D. 03/26/2025 6:10 PM Dictation Location: [place] [address] Transcribed By: [facility] 03/26/251809 Dictated By: Og Corcoran II, MD 03/26/25 180 Signed By: <Electronically signed by Og Corcoran II, MD inOV> 03/26/25 1810 us Valentine Galarza MD IMG CT PROCEDURES Edited Resu lt - Final * Auditory function tests (03/10/2025 10:16 AM EDT) Narrative Melvi Jaeger CCC-A - 03/10/2025 10:16 AM EDT Bilateral Normal hearing us Melvi Jaeger CCC-A AUDIOLOGY SERVICES ORDERA BLES Final Result from Last 3 Months Insurance [employer] Care Teams Software Analyst Relationship Specialty Start Date End Date Yamil Nunes MD [address] [place] [address] PCP - General Internal Medicine 09/23/24 Yamil Alvares DO [address] [facility] [address] [place] [id number] Referring Physician Neurology 10/31/24
--- OUTSIDE RECORDS SUMMARY | 2025-05-30 19:22 | XMS_ITS | Encounter Summary ---
Author Organization [facility] Address [address] [place] [address] Care Team Providers Care Prosthodontist/Owner Name Role Phone Yamil Nunes MD Primary Care Provider [phone] Yamil Alvares DO Unavailable [phone] Reason for Visit * Reason Comments Med Refill Encounter Details Date Type Department Care Team ([facility] st Contact Info) Description 09/10/2024 Refill [facility] [address] [phone] Candelario Kendall MD [address] [address] Chronic rhinitis; Mild intermittent asthma without complication (HCC) Social History Tobacco Use Types Packs/Day Years Used Date Smoking Tobacco: Never Smokeless Tobacco: Never Alcohol Use Standard Drinks/Week Comments Never 0 (1 standard drink = 0.6 oz pure alcohol) Caffeine intake: 2 cans of pop daily Comments Unknown Sex and Gender Information Value Date Recorded Sex Assigned at Not on file Legal Sex Female 6:55 PM EDT Gender Identity Not on file Sexual Orientation Not on file documented as of this encounter Miscellaneous Notes * Telephone Encounter - Candelario Kendall MD - 09/12/2024 2:08 PM EST Sent in documented in this encounter Plan of Treatment Not on file documented as of this encounter Visit Diagnoses Diagnosis Chronic rhinitis Mild intermittent asthma without complication (HCC) documented in this encounter Care Teams Prosthodontist/Owner Relationship Specialty Start Date End Date Yamil Nunes MD [address] [place], [place] [phone] PCP - General Internal Medicine 09/23/24 Yamil Alvares DO [address] [place] [address] Referring Physician Neurology 10/31/24 documented as of this encounter
--- OUTSIDE RECORDS SUMMARY | 2025-05-30 19:22 | XMS_ITS | Encounter Summary ---
Author Organization [facility] Address [address] [place] [address] Care Team Providers Care Fire Management Officer Name Role Phone Yamil Nunes MD Primary Care Provider Yamil Alvares DO Unavailable [phone] Encounter Details Date Type Department Care Team (Late st Contact Info) Description 03/26/2025 External Result Encounter [facility] External Department Unsolicited Valentine Galarza MD [address] [place] [id number] Social History Tobacco Use Types Packs/Day Years [...] on file documented as of this encounter Plan of Treatment Not on file documented as of this encounter Procedures Procedure Name Priority Date/Time Associated Diagnosis Comments CT ANGIOGRAM NECK 03/26/2025 6:0 4 PM EDT documented in this encounter Results * CT angiogram neck (03/26/2025 6:04 PM EDT) Anatomical Region Laterality Modality Head, Neck Computed Tomogra phy 03/26/2025 6:04 PM EDT Impressions 03/26/2025 6:12 PM EDT No evidence of focal stenosis, aneurysmal dilatation, dissection or occlusion. Impression dictated by: Og Corcoran M.D. 03/26/2025 6:10 PM Dictation Location: [facility]-- Transcribed By: [facility] 03/26/251809 Dictated By: Og Corcoran II, MD 03/26/251803 Signed By: <Electronically signed by Og Corcoran II, MD in OV> 03/26/251809 Narrative 03/26/2025 6:12 PM EDT [facility] [place] [address] CT Scan Report Signed Patient: Denise Harley MR#: [id number] 435 : 1990 Acct:[id number] Age/Sex: 34 / F ADM Date: 03/26/25 Loc: CT Room: Type: [facility] Attending Dr: Valentine Galarza Jr, MD Copies to: VALENTINE GALARZA MD Ordering Provider: VALENTINE GALARZA MD Date of Service: 03/26/25 CT/CT angio neck: G45.0 ([id number]) CT/CT angio head: G45.0 CT angio head, [...] Procedure Note Og Corcoran MD - 04/17/2025 [facility] Main [place] [address] [place] [address] CT Scan Report Signed Patient: Denise Harley MMR#: [id number] : 1990Acct:[id number] Age/Sex: 34 / FADM Date: 03/26/25 Loc: CT Room:Type: [facility] Attending Dr: Valentine Galarza Jr, MD Copies to: VALENTINE GALARZA MD Ordering Provider: VALENTINE GALARZA MD Date of Service: 03/26/25 CT/CT angio neck: G45.0 ([id number]) CT/CT angio head: G45.0 CT angio head, [...] Corcoran M.D. 03/26/2025 6:10 PM Dictation Location: [place] [address] Transcribed By: [facility] 03/26/25 1810 Dictated By: Og Corcoran II, MD 03/26/25 180 Signed By: <Electronically signed by Og Corcoran II, MD inOV> 03/26/25 1810 Valentine Galarza MD IMG CT PROCEDURES Edited Resu lt - Final documented in this encounter Visit Diagnoses Not on filedocumented in this encounter Care Teams Fire Management Officer Relationship Specialty Start Date End Date Yamil Nunes MD [address] [place] [phone] PCP - General Internal Medicine 09/23/24 Yamil Alvares DO [address] [place] [phone] Referring Physician Neurology 10/31/24 documented as of this encounter
--- OUTSIDE RECORDS SUMMARY | 2025-05-30 19:23 | XMS_ITS | Encounter Summary ---
Author Organization [facility] Address [address] [facility], [address] [place] [address] Care Team Providers Care Retail Zone Specialist Name Role Phone Mariola Jovel COUNTER INTELLIGENCE AGENT - [employer] Primary Care Provider Reason for Visit * Reason Onset Date Comments Medication Refill 02/04/2021 Encounter Details Date Type Department Care Team (Late st Contact Info) Description [facility] [address] [place] [address] [address] [place] [address] Ling Davidson, COUNTER INTELLIGENCE AGENT [facility] [address] [facility] [address] [place] [address] Medication Refill Social History Tobacco Use Types Packs/Day Years Used Date Smoking Tobacco: Former Cigarettes Q uit: 01/13/2006 Smokeless Tobacco: Never Alcohol Use Standard Drinks/Week Comments No 0 (1 standard drink = 0.6 oz pur e alcohol) PHQ-2 Answer Date Recorded PHQ-2 Score 0 06/05/2019 Comments No Sex and Gender Information Value Date Recorded Sex Assigned at Female 12/09/2024 6:54 AM EST Legal Sex Female 6:58 PM EST Gender Identity Female 12/09/2024 6:54 AM EST Sexual Orientation Straight 12/09/2024 6: 54 AM EST documented as of this encounter Plan of Treatment Upcoming Encounters Date Type Department Care Team (Late st Contact Info) Description 06/20/2025 2:30 PM EDT Office Visit Leanna Rubio [address] [place] [address] Mariola Jovel APRN - CNP [address] [place] [address] annual wellness; f.u. labs 07/03/2025 1:00 PM EDT Office Visit [facility] OBSTETRICS & GYNECOLOGY [address] [place] [address] Ling Davidson, FABIÁN - CNM [address] [place] [address] [address] [place] [address] 4 month med check. 07/29/2025 12:40 PM EDT Office Visit [facility] Kidney and Hypertension [address] [place] [address] Jonathon Shane MD [address] [place] [address] [address] [place] [address] 4 month follow up; decreased urine output; labs 03/10/2026 1:15 PM EDT Office Visit [facility] OBSTETRICS & GYNECOLOGY [address] [place] [address] Ling Davidson, FABIÁN - CNDavid [address] [place] [address] [address] [place] [address] yearly documented as of this encounter Visit Diagnoses Diagnosis Irregular menses Irregular menstrual cycle documented in this encounter Care Teams Retail Zone Specialist Relationship Specialty Start Date End Date Mariola Jovel APRN - CNP [address] [place] [address] PCP - General Internal Medicine 01/21/25 documented as of this encounter
--- OUTSIDE RECORDS SUMMARY | 2025-05-30 19:23 | XMS_ITS | Clinical Summary ---
Author Organization [facility] Address [address] [facility], [address] [place] [address] Care Team Providers Care Automatic Drill Operator Name Role Phone Mariola Jovel ASSISTANT SERVICE MANAGER - CODING CLERK Primary Care Provider Allergies Active Allergy Reactions Criticality Noted Date Comments Aspirin Nausea And Vomiting Low 05/07/2021 Propoxyphene N-Acetaminophen Nausea And Vomiting Low 11/17/2012 Meloxicam Other (See Comments) Low 05/18/2018 Does not remember reaction w this medication Oxycodone Other (See Comments) Low 07/14/2024 GI bleed Oxycodone-Acetaminophen Nausea And Vomiting Low 06/2013 Omeprazole Nausea Only Low 11/17/2012 Tears up her stomach Propoxyphene Other (See Comments) Low 07/14/2024 Pt unsure of reaction Medications Vitamin E LIQD 180 mg by Does not apply route at bedtime Active albuterol (PROVENTIL) (2.5 MG/3ML) 0.083% nebulizer solution Take 3 mLs by nebulization 4 times daily as needed for Wheezing 50 each 3 3 Active DULERA 100-5 MCG/ACT inhaler Inhale 2 puffs into the lungs in the morning and 2 puffs in the evening. Active azelastine (ASTELIN) 0.1 % nasal spray 2 sprays by Nasal route 2 times daily 3 Active QNASL 80 MCG/ACT AERS nasal spray 2 sprays by Each Nostril route 2 times daily 4 Active Calcium-Phospho amy-Vitamin D (CALCIUM/D3 ADULT GUMMIES PO) Take 1,200 mg by mouth in the morning and at bedtime 4 Active Loratadine-Pseu doephedrine (CLARITIN-D 24 HOUR PO) Take 1 tablet by mouth at bedtime 4 Active montelukast (SINGULAIR) 10 MG tablet Take 1 tablet by mouth nightly 90 tablet 3 4 Active albuterol sulfate HFA (PROAIR HFA) 108 (90 Base) MCG/ACT inhaler Inhale 2 puffs into the lungs every 6 hours as needed for Wheezing or Shortness of Breath 1 each 5 4 Active pantoprazole (PROTONIX) 40 MG tablet Take 1 tablet by mouth daily 90 tablet 3 4 Active Leona-3 Fatty Acids (OMEGA 3 PO) Take 1,000 mg by mouth at bedtime Active sertraline (ZOLOFT) 25 MG tablet Take 1 tablet by mouth daily Active OXcarbazepine (TRILEPTAL) 150 MG tablet Take 1 tablet by mouth 2 times daily Active acebutolol (SECTRAL) 200 MG capsule Take 1 capsule by mouth 2 times daily 5 Active ipratropium (ATROVENT) 0.06 % nasal spray 2 sprays by Each Nostril route 4 times daily Active estradiol (VIVELLE) 0.075 MG/24HRIndicati ons:Menopausal symptoms Place 1 patch onto the skin Twice a Week 8 patch 4 5 Active Active Problems Problem Noted Date Diagnosed Date Post-op pain 01/16/2023 Asthma Encounters Date Type Department Care Team Description 04/09/2025 12:55 PM EDT - 04/09/2025 11:59 PM EDT Hospital Encounter [facility] [address] [place] [address] Decreased urine output Discharge Disposition: Home or Self Care 04/09/2025 Telephone [facility] Part of [facility] [address] [facility] [address] [place] [phone] Ling Davidson, FABIÁN - ELLEN 03/28/2025 1:20 PM EDT Office Visit [facility] Hypertension [address] [phone] Jonathon Shane MD Decreased urine output (Primary Dx) 03/05/2025 2:15 PM EDT Office Visit [facility] Part of [facility] [address] [facility] [address] [place] [phone] Ling Davidson, FABIÁN - TAMMIE Encounter for annual routine gynecological examination (Primary Dx); Menopausal symptoms from Last 3 Months Family History Medical History Relation Name Comments Bleeding Prob Father Jakob harley Has a disease of his blood he clots more than normal Deep Vein Thrombosis Father Jakob harley Diabetes Father Jakob harley High Blood Pressure Father Jakob harley Hypertension Father Jakob harley Lung Cancer Maternal Grandfather Cancer Maternal Grandmother leukemi a No Known Problems Mother Breast Cancer Paternal Aunt Cervical Cancer Paternal Aunt Colon Cancer Paternal Grandfather Ricco harley Kidney Cancer Paternal Grandfather Ricco harley Breast Cancer Paternal Grandmother Roxane cricket Cancer Paternal Grandmother Roxane cricket Macular Degen Paternal Grandmother Roxane cricket Stroke Paternal Grandmother Roxane cricket Uterine Cancer Paternal Grandmother Roxane cricket s/p h ysterectomy Relation Name Status Comments Father Jakob harley Alive Maternal Grandfather Maternal Grandmother Mother Alive Other Other Paternal Aunt Alive Paternal Grandfather Ricco harley Paternal Grandmother Roxane harley Alive Sister Alive Social History Tobacco Use Types Packs/Day Years Used Date Smoking Tobacco: Former Cigarettes Q uit: 01/13/2006 Smokeless Tobacco: Never Tobacco Cessation:Counseling Given: Not Answered Alcohol Use Standard Drinks/Week Comments No 0 (1 standard drink = 0.6 oz pur e alcohol) [facility] Utilities Answer Date Recorded In the past 12 months has [employer] POS, gas, oil, or water company threatened to [...] place to sleep or slept in a prison (including now)? No 02/12/2024 Housing Stability Vital Sign Answer Shar e Recorded Unable to Pay for Housing in the Last Year Not o n file 12/09/2024 In the past 12 months, how m any times have you moved where you were living? 0 12/09/2024 At any time in the past 12 m [facility], were you homeless or living in a prison (including now)? No 12/09/2024 Food Insecurity Answer [...] Orientation Straight 12/09/2024 6: 54 AM EST Last Filed Vital Signs Vital Sign Reading Time Taken Comments Blood Pressure 116/78 03/28/2025 1:32 PM EDT Pulse 73 03/28/2025 1:32 PM EDT Temperature 36 C (96.8 F) 03/28/2025 1:26 PM EDT Respiratory Rate 18 03/28/2025 1:26 PM EDT Oxygen Saturation 99% 01/22/2025 2:51 PM EDT Inhaled Oxygen Concentration - - Weight 108.7 kg (239 lb 9.6 oz) 03/28/2025 1:26 PM EDT Height 170.2 cm (5' 7 ) 03/28/2025 1:26 PM EDT Body Mass Index 37.53 03/28/2025 1:26 PM EDT Plan of Treatment Upcoming Encounters Date Type Department Care Team (Late st Contact Info) Description 06/20/2025 2:30 PM EDT Office Visit Leanna Nunes MD [facility] [address] [place] [address] Mariola Jovel APRN - CODING CLERK [address] [place] [address] annual wellness; f.u. labs 07/03/2025 1:00 PM EDT Office Visit [facility] [address] [place] [address] Ling Davidson, FABIÁN - CN[address] [place] [address] 4 month med check. 07/29/2025 12:40 PM EDT Office Visit [facility]ney [facility] Hypertension [address] [place] [phone] Jonathon Shane MD [address] [place] [address] [address] [place] [address] 4 month follow up; decreased urine output; labs 03/10/2026 1:15 PM EDT Office Visit [facility] [address] [place] [address] Ling Davidson, ASSISTANT SERVICE MANAGER - CN [address] [facility] [address] [place] [phone] yearly Health Maintenance Due Date Last Done Comments COVID-19 Vaccine (1 - 2023-2 5 season) 2024 Hepatitis B vaccine (1 of 3 - 19+ 3-dose series) 06/18/2025 Postponed from 2008 (Not Indicated) Depression Screen 01/22/2026 01/22/2025, 01/22/2025 Pneumococcal 0-49 years Vaccine (1 of 2 - PCV) 10/09/2034 Postponed from 2008 (Not Indicated) DTaP/Tdap/Td vaccine (1 - Tdap) 05/16/2037 Postponed from 2008 (Patient Refused) Flu vaccine (#1) 05/16/2037 Postponed f rom 05/09/2025 (Patient Refused) HIV screen Completed 10/09/2013 Cervical cancer screen Discontinued HPV (without or with Pap) Discontinued 03/03/2022 Pap smear Discontinued 03/03/2022, 06/05/2019, 05/23/2018 HPV vaccine (No Doses Required) Completed Hepatitis A vaccine Aged Out No longe r eligible based on patient's age to complete this topic Hepatitis C screen Discontinued Hib vaccine Aged Out No longer eligi ble based on patient's age to complete this topic Meningococcal (ACWY) vaccine Aged Out No longer eligible based on patient's age to complete this topic Meningococcal B vaccine Aged Out No l onger eligible based on patient's age to complete this topic Polio vaccine Aged Out No longer elig ible based on patient's age to complete this topic Varicella vaccine Discontinued Procedures Procedure Name Priority Date/Time Associated Diagnosis Comments BASIC METABOLIC PANEL Routine 04/09/2025 1:05 PM EDT Decreased urine output PROTEIN / CREATININE RATIO, URINE Routine 04/09/2025 1:05 PM EDT Decreased urine output URINALYSIS Routine 04/09/2025 1:04 PM EDT Decreased urine output HPV, HIGH RISK Routine 03/03/2022 5:04 PM EDT PAP SMEAR Routine 03/03/2022 5:04 PM EDT from Last 3 Months or Most Recently Relevant to Health Maintenance Results * Protein / creatinine ratio, urine (04/09/2025 1:05 PM EDT) Total Protein, Urine 11 mg/dL 04/09/2025 1:[address] [facility] Comment:No normal range esta blished. Creatinine, Ur 191.0 28.0 - 217.0 mg/dL 04/09/2025 1:[address] [facility] Urine Total Protein Creatinine Ratio 0.06 0.00 - 0.20 04/09/2025 1:[address] [facility] Urine (Urine) 04/09/2025 1:0 5 PM EDT 04/09/2025 1:06 PM EDT Jonathon Shane MD URINE ORDERABLES Final Result [facility] [address] [phone] * (ABNORMAL) Basic Metabolic Panel (04/09/2025 1:05 PM EDT) Sodium 138 136 - 145 mmol/L 04/09/2025 1:[address] [facility] Potassium 4.3 3.7 - 5.3 mmol/L 04/09/2025 1:[address] [facility] Chloride 103 98 - 107 mmol/L 04/09/2025 1:[address] [facility] CO2 22 20 - 31 mmol/L 04/09/2025 1:[address] [facility] Anion Gap 13 9 - 16 mmol/L 04/09/2025 1:[address] [facility] Glucose 94 74 - 99 mg/dL 04/09/2025 1:[address] [facility] BUN 20 6 - 20 mg/dL 04/09/2025 1:[address] [facility] Creatinine 0.7 0.50 - 0.90 mg/dL 04/09/2025 1:[address] [facility] EstSevero Filt Rate >90 >60 mL/min/1.7 3m2 04/09/2025 1:[address] [facility] Comment: These results are not intended for use in patients <18 years of age. eGFR results are calculated without a race factor using the 2020 CKD-EPI equation. Careful clinical correlation is recommended, particularly when comparing to results calculated using previous equations. The CKD-EPI equation is less accurate in patients with extremes of muscle mass, extra-renal metabolism of creatine, excessive creatine ingestion, or following therapy that affects renal tubular secretion. BUN/Creatinine Ratio 29(H) 9 - 20 04/09/2025 1:[address] [facility] Calcium 8.9 8.6 - 10.4 mg/dL 04/09/2025 1:[address] [facility] Blood BLOOD SPECIMEN / Unknown 04/09/2025 1:05 PM EDT 04/09/2025 1:06 PM EDT us Jonathon Shane MD CHEMISTRY ORDERABLES Final Resu lt [facility] [address] [phone] * (ABNORMAL) Urinalysis (04/09/2025 1:04 PM EDT) Color, UA Yellow Yellow 04/09/2025 1:[address] [facility] Turbidity UA Clear Clear 04/09/2025 1:[address] [facility] Glucose, Ur NEGATIVE NEGATIVE mg/dL 04/09/2025 1:[address] [facility] Bilirubin, Urine NEGATIVE NEGATIVE 04/09/2025 1:[address] [facility] Ketones, Urine NEGATIVE NEGATIVE mg/dL 04/09/2025 1:[address] [facility] Specific [place], UA >1.030(H) 1.010 - 1.020 04/09/2025 1:[address] [facility] Urine Hgb NEGATIVE NEGATIVE 04/09/2025 1:[address] [facility] pH, Urine 6.0 5.0 - 9.0 04/09/2025 1:[address] [facility] Protein, UA NEGATIVE NEGATIVE mg/dL 04/09/2025 1:[address] [facility] Urobilinogen, Urine Normal 0.0 - 1.0 EU/dL 04/09/2025 1:[address] [facility] Nitrite, Urine NEGATIVE NEGATIVE 04/09/2025 1:[address] [facility] Leukocyte Esterase, Urine NEGATIVE NEGATIVE 04/09/2025 1:[address] [facility] Urine URINE SPECIMEN / Unknown 04/09/2025 1:04 PM EDT 04/09/2025 1:05 PM EDT Jonathon Shane MD URINE ORDERABLES Final Result [facility] [address] [phone] * HPV, High Risk (03/03/2022 5:04 PM EDT) HPV, Interpretation NEGATIVE NEGATIVE [facility] HPV, Genotype 16 NEGATIVE [facility] HPV, Genotype 18 NEGATIVE [facility] Other HR HPV Genotypes NEGATIVE [facility] Comment: Testing methodology is real-time PCR utilizing hydrolysis probes with the Dario Nito [id number] system. The test individually detects genotypes 16 and 18, as well as the other 12 high risk types (31,33,35,39,45,51,52,56,58,59,66,68). The expected result is negative. A negative result does not rule out the presence of HPV not included in the genotype set, a low level of infection or specimen sampling error. UNLESS OTHERWISE INDICATED, COMPUTER AIDED AND SANDER SETTER SCREENING PERFORMED. The Pap test is a screening test with an inherent, but low probability of error. Your patient should be reminded to consult you immediately if she experiences any suspicious signs or symptoms, regardless of her Pap test result. An alternate report format containing images or consolidated prior Pap history is available as applicable. Test performed at [facility] [address] [place] [id number] CLIA Number [id number] CAP Accreditation Number [id number] [facility]ology [facility] [address] [place] [address] CLIA No. [id number] CAP Accreditation No. [id number] Crew Lead: Anthony Wright M.D. * EFFECTIVE 03/08/2022 * * PLATFORM CHANGES IN THE MAIN LABORATORY ARE * * ASSOCIATED WITH REFERENCE RANGE CHANGES FOR A NUMBER * * OF ANALYTES. PLEASE REVIEW REFERENCE INTERVALS CAREFULLY * 03/03/2022 5:04 PM EDT 03/05/2022 5:31 AM EDT Narrative [facility] - 03/09/2022 5:53 PM EDT Ordering Provider: LING DAVIDSON Ling Davidson ASSISTANT SERVICE MANAGER - CNM MICROBIOLOGY - G ENERAL ORDERABLES Final Result [facility] * PAP SMEAR (03/03/2022 5:04 PM EDT) Source Cervical -[facility] Slides 1 [facility] Last Menstrual Period 02/24/2022 [facility] Specimen adequacy: [facility] Comment: Satisfactory for evaluation. Endocervical cells/transformation zone component present. Interpretation: SEE NOTE [facility] Comment: NILM/NO EPITH. ABNORMALITY;SEE BELOW NEGATIVE FOR INTRAEPITHELIAL LESION OR MALIGNANCY (NILM) Engine Service Repairer SEE NOTE [facility] Comment:MARIO ALBERTO Ferrara( ASCP)[facility] Location [facility] Comment: Specimens processed and interpreted at [facility], [address] [place] [id number], , CLIA: [id number] CPT Code -[facility] Comment: [id number] UNLESS OTHERWISE INDICATED, COMPUTER AIDED AND SANDER SETTER SCREENING PERFORMED. The Pap test is a screening test with an inherent, but low probability of error. Your patient should be reminded to consult you immediately if she experiences any suspicious signs or symptoms, regardless of her Pap test result. An alternate report format containing images or consolidated prior Pap history is available as applicable. Test performed at [facility] [address] [place] [id number] CLIA Number [id number] [facility] Accreditation Number [id number] 03/03/2022 5:04 PM EDT 03/05/2022 5:31 AM EDT Narrative [facility] - 03/09/2022 5:53 PM EDT Ordering Provider: LING DAVIDSON Ling Davidson ASSISTANT SERVICE MANAGER - CNM PATHOLOGY/CYTOLO GY ORDERABLES Final Result [facility] from Last 3 Months or Most Recently Relevant to Health Maintenance Insurance [employer] Advance Directives * Full Code (Latest Code Status on File) Date Activated Date Inactivated Comments 07/05/2024 7:03 AM 07/05/2024 2:10 PM * Full Code Date Activated Date Inactivated Comments 01/16/2023 6:55 AM 01/16/2023 2:36 PM * Full Code Date Activated Date Inactivated Comments 07/15/2022 6:55 AM 07/15/2022 1:00 PM Care Teams Automatic Drill Operator Relationship Specialty Start Date End Date Mariola Jovel APRN - GREG [address] [place] [address] PCP - General Internal Medicine 01/21/25
--- OUTSIDE RECORDS SUMMARY | 2025-05-30 19:23 | XMS_ITS | Encounter Summary ---
Author Organization [facility] Address [address] [place] [address] Phone Care Team Providers Care Milk Pasteurizer Name Role Phone Yamil Nunes MD Primary Care Provide r Encounter Details Date Type Department Care Team (Late st Contact Info) Description 09/04/2024 Scanned Document [facility] [address] [place] [phone] Scanning, Generic Provider Social History Tobacco Use Types Packs/Day Years Used Date Smoking Tobacco: Never Smokeless Tobacco: Never Alcohol Use Standard Drinks/Week Comments Not Currently 0 (1 standard drink = 0.6 oz pur e alcohol) Comments Unknown Sex and Gender Information Value Date Recorded Sex Assigned at Not on file Legal Sex Female 1:40 PM EDT Gender Identity Not on file Sexual Orientation Not on file COVID-19 Exposure Response Date Recorded In the last 10 days, have yo u been in contact with someone who was confirmed or suspected to have Coronavirus/COVID-19? No / Unsure 08/26/2024 8:12 AM EST documented as of this encounter Plan of Treatment Upcoming Encounters Date Type Department Care Team (Late st Contact Info) Description 07/14/2025 9:45 AM EDT Office Visit [facility] [address] [facility] [address] [place] [address] Elli Valdivia MD [address] [facility] [address] [place], [place] [phone] documented as of this encounter Visit Diagnoses Not on filedocumented in this encounter Care Teams Milk Pasteurizer Relationship Specialty Start Date End Date Yamil Nunes MD [address] [place] [address] PCP - General Internal Medicine 07/16/24 documented as of this encounter
--- OUTSIDE RECORDS SUMMARY | 2025-05-30 19:23 | XMS_ITS | Clinical Summary ---
Author Organization [facility] Address [address] [place] [address] Phone Care Team Providers Care Tube Coverer Name Role Phone Yamil Nunes MD Primary Care Provide r Allergies Active Allergy Reactions Criticality Noted Date Comments Propoxyphene N-Acetaminophen GI bleeding 2023 Meloxicam GI bleeding 08/08/2024 Oxycodone-Acetaminophen GI bleeding 08/08/2024 Omeprazole GI bleeding 08/08/2024 Medications pantoprazole (ProtoNix) 40 mg EC tablet Take 1 tablet (40 mg) by mouth once daily in the morning. Take before meals. 10/31/19 24 Active Dulera 100-5 mcg/actuation inhaler Inhale 2 puffs 2 times a day. 08/30/20 23 Active calcium carbonate-vitamin D3 500 mg-15 mcg (600 unit) tablet Take 1 tablet by mouth once daily. Active vitamin E 90 mg (200 unit) capsule Take 100 Units by mouth once daily. Active montelukast (Singulair) 10 mg tablet Take 1 tablet (10 mg) by mouth once daily at bedtime. 06/18/20 24 Active loratadine (Claritin) 10 mg tablet Take 1 tablet (10 mg) by mouth once daily. Active albuterol 90 mcg/actuation inhaler Inhale 2 puffs every 6 hours if needed for wheezing or shortness of breath. Active albuterol 2.5 mg /3 mL (0.083 %) nebulizer solution Take 3 mL (2.5 mg) by nebulization every 6 hours if needed for wheezing or shortness of breath. 06/16/20 23 Active beclomethasone (QNASL) 80 mcg/actuation HFA aerosol inhaler Administer 2 sprays into each nostril once daily. Active fish oil ([place]-3) 60-90-500 mg capsuleIndication s:Elevated triglycerides with high cholesterol Take 1 capsule (500 mg) by mouth once daily. 90 capsule 3 08/09/20 24 025 Active ipratropium (Atrovent) 42 mcg (0.06 %) nasal spray Administer 2 sprays into each nostril 3 times a day. 09/12/20 24 Active sertraline (Zoloft) 25 mg tabletIndications :Syncope and collapse,Palpitat ions,Shortness of breath,Dizziness Take 1 tablet (25 mg) by mouth once daily. 90 tablet 3 09/19/20 24 025 Active estrogens, conjugated, (Premarin) 0.625 mg tablet Take 1 tablet (0.625 mg) by mouth once daily. Take daily for 21 days then do not take for 7 days. Active OXcarbazepine (Trileptal) 150 mg tablet Take 1 tablet (150 mg) by mouth twice a day. 01/01/20 25 026 Active acebutolol (Sectral) 200 mg capsuleIndication s:Syncope and collapse,Abnormal EKG,Palpitations, Dizziness Take 1 capsule (200 mg) by mouth 2 times a day. 180 capsule 3 02/04/20 25 026 Active Active Problems Problem Noted Date Diagnosed Date Encounter to discuss test results 01/09/2025 Mixed hyperlipidemia 01/09/2025 Syncope and collapse 09/19/2024 Family history of syncope 09/19/2024 Body mass index (BMI) of 37.0 to 37.9 in adult 1 Never smoked tobacco 08/08/2024 Dizziness 08/08/2024 Other chest pain 08/08/2024 Shortness of breath 08/08/2024 Palpitations 08/08/2024 Abnormal EKG 08/08/2024 Family History Medical History Relation Name Comments Clotting disorder Father Diabetes Father Hypertension Father heart problem Father Stroke Paternal Grandmother Relation Name Status Comments Father Paternal Grandmother Social History Tobacco Use Types Packs/Day Years Used Date Smoking Tobacco: Never Smokeless Tobacco: Never Tobacco Cessation:Counseling Given: Yes Alcohol Use Standard Drinks/Week Comments Not Currently 0 (1 standard drink = 0.6 oz pur e alcohol) Comments Unknown Sex and Gender Information Value Date Recorded Sex Assigned at Not on file Legal Sex Female 1:40 PM EDT Gender Identity Not on file Sexual Orientation Not on file Last Filed Vital Signs Vital Sign Reading Time Taken Comments Blood Pressure 110/70 01/09/2025 9:22 AM EDT Pulse 72 01/09/2025 9:21 AM EDT Temperature - - Respiratory Rate - - Oxygen Saturation - - Inhaled Oxygen Concentration - - Weight 108 kg (239 lb) 01/09/2025 9:21 AM EDT Height 170.2 cm (5' 7 ) 01/09/2025 9:21 AM EDT Body Mass Index 37.43 01/09/2025 9:21 AM EDT Plan of Treatment Upcoming Encounters Date Type Department Care Team (Late st Contact Info) Description 07/14/2025 9:45 AM EDT Office Visit [address] [place] [address] Elli Valdivia MD [address] [facility] [address] [place] [address] Health Maintenance Due Date Last Done Comments HIV Screening 1989 Lipid Panel 1989 MMR Vaccines (1 of 1 - Standard series) 1990 Hepatitis C Screening 2007 Hepatitis B Vaccines (1 of 3 - 19+ 3-dose series) 2008 Pneumococcal Vaccine: Pediatrics and At-Risk Adult Patients (1 of 2 - PCV) 2008 Cervical Cancer Screening 2010 HPV/Cotest 2010 Pap Smear 2010 DTaP/Tdap/Td Vaccines (1 - Tdap) 2011 HPV Vaccines (1 - 3-dose standard series) 2016 COVID-19 Vaccine (1 - 2023- season) 2024 Influenza Vaccine (#1) 2025 Diabetes Screening 06/14/2025 06/14/2024, 05/02/2023 Yearly Adult Physical 06/19/2025 06/18/2024 , 02/29/2024, 06/16/2023, Additional history exists Zoster Vaccines (1 of 2) 2039 HIB Vaccines Aged Out No longer eligi ble based on patient's age to complete this topic Hepatitis A Vaccines Aged Out No long er eligible based on patient's age to complete this topic IPV Vaccines Aged Out No longer eligi ble based on patient's age to complete this topic Meningococcal Vaccine Aged Out No justin pretty eligible based on patient's age to complete this topic Rotavirus Vaccines Aged Out No longer eligible based on patient's age to complete this topic Insurance [employer] o [address] [address] [employer] Care Teams Tube Coverer Relationship Specialty Start Date End Date Yamil Nunes MD [address] [place] [address] PCP - General Internal Medicine 07/16/24
--- OUTSIDE RECORDS SUMMARY | 2025-05-30 19:23 | XMS_ITS | Patient Health Record ---
Author Organization [facility] es Address [address] [place] [address] Care Team Providers Care Balance Staff Inspector Name Role Phone Valerie Gresham Primary Care Provider Dr. Josse Dillard Unavailable [phone] Iza Dominguez Unavailable [phone] Kiara Godfrey Unavailable [phone] Reason For Referral No Information Encounters Encounter Location Date Provider Diagnosis [address] [id number] 12/13/2024 Iza Dominguez Encounter for dental examination and cleaning with abnormal findings Z01.21 ; Other dental procedure status Z98.818 ; Dental caries on pit and fissure surface penetrating into dentin K02.52 and Acute gingivitis, plaque induced K05.[address] [address] 12/16/2024 Kiara Godfrey Dental caries on pit and fissure surface penetrating into dentin K02.52 and Acute gingivitis, plaque induced K05.00 Assessments Encounter Date Diagnosis (ICD Code) Assessment Notes Treatment Notes Treatment Clinical Notes Section Notes 12/13/2024 Encounter for dental examination and cleaning with abnormal findings (ICD-10 - Z01.21) 12/16/2024 Dental caries on pit and fissure surface penetrating into dentin (ICD-10 - K02.52) 12/16/2024 Acute gingivitis, plaque induced (ICD-10 - K05.00) 12/13/2024 Other dental procedure status (ICD-10 - Z98.818) 12/13/2024 Dental caries on pit and fissure surface penetrating into dentin (ICD-10 - K02.52) 12/13/2024 Acute gingivitis, plaque induced (ICD-10 - K05.00) Plan Of Treatment No Information Insurance Providers Payer Name Payer Address Payer Phone Subscriber Number Group Number Insured Name Patient Relationship to Insured Coverage Start Date Coverage End Date [employer] [place] [address] [place] [address] [id number] MEHNAZ GILLILAND Self - patient is the insured 4 [employer] [facility] [employer] [address] [place] [address] [id number] MEHNAZ GILLILAND Self - patient is the insured 4 zDENTAL DQ [employer] -termed 22 [address] [place] [address] [id number] MEHNAZ GILLILAND Self - patient is the insured 2 3 zDental MEDICAID [employer] after [employer] -termed 22 [address] [place] [address] [id number] MEHNAZ GILLILAND Self - patient is the insured 2 3 Dental [employer] [place] [address] [place] [address] [id number] MEHNAZ GILLILAND Self - patient is the insured 4 Dental Wrap [facility] [employer] [address] [place] [address] [id number] MEHNAZ GILLILAND Self - patient is the insured 4
--- OUTSIDE RECORDS SUMMARY | 2025-05-30 19:23 | XMS_ITS | Encounter Summary ---
[facility] Address [address], [address] [place] [address] Care Team Providers Care Product Sales Engineer Name Role Phone Mariola Jovel PULMONARY FUNCTION TECHNOLOGIST - DOG TRAINER Primary Care Provider Reason for Visit * Reason Onset Date Comments Medication Refill 02/08/2021 Encounter Details Date Type Department Care Team (Late st Contact Info) Description 02/08/2021 Refill [facility] [address] [place] [address] [address] [place] [address] Ling Davidson, PULMONARY FUNCTION TECHNOLOGIST [facility] [address] [place] [address] Medication Refill Social History Tobacco [...] PM EDT Office Visit Leanna Rubio [address] [place] [address] Mariola Jovel APRN - CNP [address] [place] [address] annual wellness; f.u. labs 07/03/2025 1:00 PM EDT Office Visit [facility] [address] [place] [address] Ling Davidson, FABIÁN - CNM [address] [place] [address] [address] [place] [address] 4 month med check. 07/29/2025 12:40 PM EDT Office Visit [facility] Hypertension [address] [place] [address] Jonathon Shane MD [address] [place] [address] [address] [place] [address] 4 month follow up; decreased urine output; labs 03/10/2026 1:15 PM EDT Office Visit [facility] [address] [place] [address] Ling Davidson, FABIÁN - CNDavid [address] [place] [address] Dr [address] [place] [address] yearly documented as of this encounter Visit Diagnoses Diagnosis Irregular menses Irregular menstrual cycle documented in this encounter Care Teams Product Sales Engineer Relationship Specialty Start Date End Date Mariola Jovel APRN - CNP [address] [place] [address] PCP - General Internal Medicine 01/21/25 documented as of this encounter
--- OUTSIDE RECORDS SUMMARY | 2025-05-30 19:24 | XMS_ITS | CCD ---
Author Organization [facility] Inform ion Partnership [facility] Care Team Providers Care Certified Novell Engineer Name Role Phone Fabiola Moralez MD Primary Care Provider MARKER, DR SMART Admitting Unavailable MARKER, DR SMART Consulting Unavailable MARKER, DR SMART Attending Unavailable MISC, DR ALEXANDRE Primary Care Unavailable Heaven Reed Consulting Unavailable Fabiola Moralez MD Primary Care Provider [phone] Fabiola Moralez MD Primary Care Provider Fabiola Moralez MD Primary Care Provider Fabiola Moralez MD Primary Care Provider 1( [phone] Fabiola Moralez MD Primary Care Provider Fabiola Moralez MD Primary Care Provide r Unavailable Primary Care Provider UnavailFabiola Black MD Primary Care Provider ELLI VALDIVIA Referring Unavailable FABIOLA MORALEZ Primary Care Unavail able ELLI VALDIVIA Referring Unavailable FABIOLA MORALEZ Primary Care Unavail able ELLI VALDIVIA Attending Unavailable FABIOLA MORALEZ Primary Care Unavail able JASMYNE VALDIVIAA Referring Unavailable FABIOLA MORALEZ Primary Care Unavail able ELLI VALDIVIA Attending Unavailable JASMYNE VALDIVIAA Referring Unavailable FABIOLA MORALEZ Primary Care Unavail able ELLI VALDIVIA Attending Unavailable JASMYNE VALDIVIAA Referring Unavailable FABIOLA MORALEZ Primary Care Unavail able Mariola Hartman APRN, CNP Primary Care Provider FABIOLA MORALEZ Primary Care Unavailable DUSTIN DAVIDSON Referring UnavailFabiola Nava DO Unavailable Dia DO, Christopher Unavailable [phone] FABIOLA ALVARES Referring Unavailable FABIOLA ALVARES Attending Unavailable ELVIA KENDALL Attending Unavailable MELVI WICK Attending Unavailable CHARI MARIOLA Referring Unavailable AYLEEN CLARK Attending Unavailable AYLEEN CLARK Attending Unavailable FABIOLA ALVARES Attending Unavailable ELLI VALDIVIA Referring Unavailable KIRSTEN VELIZ Admitting Unavail able KIRSTEN VELIZ F Attending Unavail able FABIOLA MORALEZ Primary Care Unavailable CHARI, MARIOLA Referring Unavailable FABIOLA MORALEZ Primary Care Unavailable DUSTIN DAVIDSON Referring Unavailabl e FABIOLA MORALEZ Primary Care Unavailable MARCELINO, MARIOLA Referring Unavailable MARCELINO, MARIOLA Primary Care Unavailable JONATHON ANDRE Referring Unavailable MARCELINO, MARIOLA Primary Care Unavailable MARCELINO, MARIOLA Referring Unavailable MARCELINO, MARIOLA Primary Care Unavailable CHARI, MARIOLA Referring Unavailable FABIOLA MORALEZ Primary Care Unavailable Jasmyne Valdiviaa Admitting Unavailable Elli Valdivia Attending Unavailable Liliya Springer Referring Unavailable Agustín Moralez Primary Care Unavailable Fabiola Alvares Admitting Unavailab Fabiola Perez Attending Unavailab Fabiola Mackey Primary Care Unavailable Fabiola Moralez Primary Care Unavailable Ayleen Clark Jr H Admitting Unavailable Ayleen Clark Jr H Attending Unavailable Allergies Allergy Classification Reported Allergen(s) Allergy Type Date of Onset Reaction(s) Facility Acetaminophen (1 source) Acetaminophen Drug Allergy 1 [facility] Repository Acetaminophen / oxyCODONE (2 sources) Acetaminophen / oxyCODONE; Translations: [Percocet] Drug Allergy 3 [facility] Aspirin (1 source) Aspirin Drug Allergy 1 [facility] Repository formoterol (1 source) formoterol Drug Allergy 1 [facility] Repository NSAIDs (1 source) meloxicam Drug Allergy 8 [facility] Proton Pump Inhibitors (2 sources) Omeprazole; Translations: [Prilosec] Drug Allergy 3 [facility] (20 sources) Propoxyphene N-Acetaminophen; Translations: [PROPOXYPHENE N-ACETAMINOPHEN] Propensity to adverse reactions to drug 3 Nausea And Vomiting, GI bleeding [facility] (20 sources) Acetaminophen / oxyCODONE; Translations: [OXYCODONE-ACETAM INOPHEN] Drug Allergy 3 Nausea And Vomiting, GI bleeding, GI intolerance [place], [place] (20 sources) meloxicam; Translations: [MELOXICAM] Drug Allergy 8 GI bleeding, Other (See Comments) [place] (20 sources) Omeprazole; Translations: [OMEPRAZOLE] Drug Allergy 3 Nausea Only, GI bleeding [place] (14 sources) Aluminum aspirin Drug Allergy 1 Nausea And Vomiting [facility] (15 sources) Propoxyphene Drug Allergy 3 Other (See Comments) [facility] (8 sources) meloxicam Drug Allergy 5 GI intolerance [facility] (9 sources) oxyCODONE Drug Allergy 4 Other (See Comments), Other [facility] (5 sources) Acetaminophen Drug Allergy 5 [facility] (1 source) Acetaminophen Drug Allergy 5 [facility] Repository (1 source) meloxicam Drug Allergy 5 [facility] Repository (1 source) oxyCODONE Drug Allergy 5 [facility] Repository (1 source) Propoxyphene Drug Allergy 5 [facility] Repository Medications Current Medications Medication Drug Class(es) Dates Sig (Normalized) Sig (Original) acebutolol 200 mg oral capsule (13 sources) beta-Adrenergic Anirudh Start: 09-19-2024 End: 09-19-2025 take 1 capsule by mouth twice daily acebutolol (SECTRAL) 200 MG capsule Take 1 capsule by mouth 2 times daily 02/05/2025 Active acetaminophen 325 mg / HYDROcodone bitartrate 5 mg oral tablet (3 sources) Opioid Agonist Start: 07-05-2024 End: 07-10-2024 HYDROcodone-acetami nophen (NORCO) 5-325 MG per tablet Indications: Postoperative pain Take 1 tablet by mouth every 6 hours as needed for Pain for up to 5 days. Intended supply: 5 days. Take lowest dose possible to manage pain Max Daily Amount: 4 tablets 6 tablet 07/05/2024 07/10/2024 Active Start: 07-15-2022 End: 07-18-2022 HYDROcodone-acetaminophen (N ORCO) 5-325 MG per tablet Indications: Post-op pain Take 1 tablet by mouth every 4-6 hours as needed for Pain for up to 3 days. Intended supply: 3 days. Take lowest dose possible to manage pain 12 tablet 0 07/15/2022 07/18/2022 Active albuterol 0.83 mg/ml inhalation solution (20 sources) beta2-Adrenergic Agonist Start: 07-05-2024 2.5 m g, Nebulization, ONCE, 1 dose, On Mon07/05/24 at 1045, Initiate RT Bronchodilator Protocol: No Start: 07-05-2024 1 dose, Starti ng on Mon07/05/24 at 1023, Until Mon07/05/24 at 1024, Regina Pappas: cabinet override, Regina Pappas: cabinet override Start: 06-16-2023 albuterol (PRO VENTIL) (2.5 MG/3ML) 0.083% nebulizer solution Take 3 mLs by nebulization 4 times daily as needed for Wheezing 50 each 3 06/16/2023 Active Start: 06-16-2023 take 2 puff(s) by in halation every six hours as needed for wheezing albuterol sulfate HFA (PROAIR HFA) 108 (90 Base) MCG/ACT inhaler Inhale 2 puffs into the lungs every 6 hours as needed for Wheezing or Shortness of Breath 1 each 5 06/18/2024 Active Start: 06-16-2023 take 2.5 mg by inhal ation every six hours as needed albuterol 2.5 mg /3 mL (0.083 %) nebulizer solution Take 3 mL (2.5 mg) by nebulization every 6 hours if needed for wheezing or shortness of breath. 06/16/2023 Active take 2 puff(s) by in halation every four hours for wheezing albuterol HFA 90 mcg/act inhaler Inhale 2 puffs every 4 (four) hours if needed for wheezing Active ALBUTEROL IN Inh saima into the lungs Active ascorbic acid 250 mg oral tablet (1 source) Vitamin C take 1 tablet by mouth once daily Ascorbic Acid (VITAMIN C) 250 MG tablet Take 250 mg by mouth daily 0 Active azelastine hydrochloride 0.137 mg/actuat metered dose nasal spray (6 sources) Histamine-1 Receptor Antagonist Start: End: azelastine (ASTELIN) 0.1 % nasal spray 2 sprays by Nasal route 2 times daily 08/30/2023 Active Start: 08-30-2023 End: 09-12-2024 take 2 spray(s) nasal route in the morning azelastine (Astelin) 0.1 % nasal spray Indications: Chronic rhinitis Administer 2 sprays into each nostril in the morning and 2 sprays before bedtime. Use in each nostril as directed. 90 mL 3 08/30/2023 09/12/2024 Discontinued (Side effects) azithromycin 250 mg oral tablet (1 source) Macrolide Antimicrobial Start: 04-22-2021 take 1 tablet by mouth once daily azithromycin (ZITHROMAX) 250 MG tablet Indications: Pelvic pain Take 1 tablet by mouth daily 10 tablet 0 04/22/2021 Active B Complex Vitamins (vitamin B complex) tablet (7 sources) End: 03-12-2025 B Complex Vitamins (vitamin B complex) tablet 1 capsule 1 (one) time each day at the same time 03/12/2025 Discontinued (Therapy completed) B Complex Vitami ns (vitamin B complex) tablet 1 capsule 1 (one) time each day at the same time Active beclomethasone dipropionate 0.08 mg/actuat metered dose nasal spray (20 sources) Corticosteroid Start: 09-12-2024 take 2 spray(s) nasal route once daily beclomethasone (Qnasl) 80 MCG/ACT aerosol solution Indications: Vasomotor rhinitis , Chronic rhinitis Administer 2 sprays into each nostril Daily 8.7 g 11 09/12/2024 Active Start: 01-04-2024 take 2 spray(s) nasa l route twice daily QNASL 80 MCG/ACT AERS nasal spray 2 sprays by Each Nostril route 2 times daily 01/04/2024 Active Start: 08-30-2023 End: 09-12-2024 take 2 spray(s) nasal route in the morning beclomethasone (Qnasl) 80 MCG/ACT aerosol solution Indications: Chronic rhinitis Administer 2 sprays into each nostril in the morning. 8.7 g 11 08/30/2023 09/12/2024 Discontinued (Reorder) take 2 spray(s) nasa l route once daily beclomethasone (QNASL) 80 mcg/actuation HFA aerosol inhaler Administer 2 sprays into each nostril once daily. Active calcium carbonate 1250 mg / cholecalciferol 600 unt oral tablet (9 sources) Vitamin D take 1 tablet by mouth once daily calcium carbonate-vitamin D3 500 mg-15 mcg (600 unit) tablet Take 1 tablet by mouth once daily. Active calcium chloride 0.0014 meq/ml / potassium chloride 0.004 meq/ml / sodium chloride 0.103 meq/ml / sodium lactate 0.028 meq/ml injectable solution (3 sources) Start: IntraVENous, at 100 mL/hr, CONTINUOUS, Starting on Mon07/05/24 at 0730, Pre-op (day of surgery) Start: 07-15-2022 lactated ringe rs infusion Bjqfupg-Kitubgljgd-Skxqlbg D (CALCIUM/D3 ADULT GUMMIES PO) (5 sources) Start: 03-09-2024 take 1200 mg by mouth once at bedtime Fjlrplk-Jyqvhkebie-Skixmsi D (CALCIUM/D3 ADULT GUMMIES PO) Take 1,200 mg by mouth in the morning and at bedtime 03/09/2024 Active Start: 03-09-2024 Calcium-Phosph orus-Vitamin D (CALCIUM/D3 ADULT GUMMIES PO) Take 2 gums by mouth daily 03/09/2024 Active LAYBWKZ-SZWCQUMOPF-VTZONGS D PO (10 sources) Start: 03-09-2024 WTHLMNC-YQZRNTGPAW-FIXJLDX D PO Take by mouth 03/09/2024 Active esomeprazole 20 mg granules for oral suspension (1 source) Proton Pump Inhibitor take 20 mg by mouth once daily esomeprazole Magnesium (NEXIUM) 20 MG PACK Take 20 mg by mouth daily 0 Active 84 hr estradiol 0.68156 mg/hr transdermal system (5 sources) Estrogen Start: 03-28-2025 apply 1 dose transderma l route two times weekly Ute 0.075 MG/24HR APPLY 1 PATCH TOPICALLY TWICE A WEEK 03/28/2025 Active Start: 03-06-2025 estradiol (GOMEZ SHARON) 0.075 MG/24HR Indications: Menopausal symptoms Place 1 patch onto the skin Twice a Week 8 patch 4 03/06/2025 Active Start: 12-19-2024 estradiol (EST RACE VAGINAL) 0.1 MG/GM vaginal cream Place 1 g vaginally twice a week 1 each 2 12/19/2024 Active Start: 12-12-2024 Estradiol (VAG IFEM) 10 MCG TABS vaginal tablet Indications: Vaginal dryness , Dyspareunia in female Place 1 tablet vaginally Twice a Week 8 tablet 3 12/12/2024 Active estrogens, conjugated (skilled nursing) 0.625 mg oral tablet (20 sources) Estrogen Start: 12-12-2024 take 1 tablet by mouth once daily estrogens, conjugated, (PREMARIN) 0.625 MG tablet Indications: Menopausal symptoms Take 1 tablet by mouth daily 30 tablet 3 12/12/2024 Active Start: 07-05-2024 End: 04-02-2025 estrogens, conjugated, (Michael rika) 0.3 MG tablet Take 0.9 mg by mouth Daily 07/05/2024 04/02/2025 Discontinued (Therapy completed) Start: 07-05-2024 End: 01-09-2025 take 1 tablet by mouth once daily estrogens, conjugated, (PREMARIN) 0.3 MG tablet Take 1 tablet by mouth daily 30 tablet 3 11/14/2024 Active Ethinyl Estradiol / Levonorgestrel (8 sources) Progestin, Estrogen, Progestin-containing Intrauterine Device Start: 03-03-2022 take 1 tablet by mouth once daily, then take 0.15 tablet by mouth once levonorgestrel-ethinyl estradiol (SEASONALE) 0.15-0.03 MG per tablet Indications: Irregular menses Take 1 tablet by mouth daily 1 packet 3 03/03/2022 Active Start: 02-25-2021 take 1 tablet by jessy th once daily, then take 0.15 tablet by mouth once levonorgestrel-ethinyl estradiol (SEASONALE) 0.15-0.03 MG per tablet Indications: Irregular menses Take 1 tablet by mouth daily 1 packet 4 02/25/2021 Active Start: 04-10-2020 take 1 tablet by jessy th once daily, then take 0.15 tablet by mouth once levonorgestrel-ethinyl estradiol (SEASONALE) 0.15-0.03 MG per tablet Indications: Irregular menses Take 1 tablet by mouth daily 1 packet 3 04/10/2020 Active Start: 06-05-2019 take 1 tablet by jessy th once daily, then take 0.15 tablet by mouth once levonorgestrel-ethinyl estradiol (SEASONALE) 0.15-0.03 MG per tablet Indications: Irregular menses Take 1 tablet by mouth daily 1 packet 3 06/05/2019 Active Fish Oils (19 sources) Start: 08-09-2024 End: 08-09-2025 take 1 capsule by mouth in the morning fish oil (Denhoff-3) 500 MG capsule Take 500 mg by mouth in the morning. 08/09/2024 08/09/2025 Active Start: 08-09-2024 End: 08-09-2025 take 1 capsule by mouth once daily fish oil (Denhoff-3) 60-90-500 mg capsule Indications: Elevated triglycerides with high cholesterol Take 1 capsule (500 mg) by mouth once daily. 90 capsule 3 08/09/2024 08/09/2025 Active Start: 08-08-2024 End: 08-08-2025 take 1 capsule by mouth once daily fish oil (Denhoff-3) 60-90-500 mg capsule Indications: Elevated triglycerides with high cholesterol Take 1 capsule (500 mg) by mouth once daily. 90 capsule 3 08/08/2024 08/08/2025 Active 60 actuat formoterol fumarate 0.005 mg/actuat / mometasone furoate 0.1 mg/actuat metered dose inhaler (20 sources) Corticosteroid, beta2-Adrenergic Agonist Start: 08-30-2023 End: 09-12-2025 take 2 puff(s) by inhalation in the morning mometasone-formoterol (Dulera) 100-5 MCG/ACT inhaler Indications: Mild intermittent asthma without complication (HCC) Inhale 2 puffs in the morning and 2 puffs before bedtime. Rinse mouth with water after use to reduce aftertaste and incidence of candidiasis. Do not swallow.. 13 g 11 09/12/2024 09/12/2025 Active Start: 08-30-2023 take 2 puff(s) by in halation twice daily Dulera 100-5 mcg/actuation inhaler Inhale 2 puffs 2 times a day. 08/30/2023 Active take 2 puff(s) by in halation in the morning DULERA 100-5 MCG/ACT inhaler Inhale 2 puffs into the lungs in the morning and 2 puffs in the evening. Active ipratropium bromide 0.042 mg/actuat metered dose nasal spray (14 sources) Anticholinergic Start: 09-12-2024 End: 12-11-2024 take 2 spray(s) nasal route in the morning, then take 2 spray(s) nasal route in the evening, then take 2 spray(s) nasal route at bedtime ipratropium (Atrovent) 0.06 % nasal spray Indications: Vasomotor rhinitis , Chronic rhinitis Administer 2 sprays into each nostril in the morning and 2 sprays in the evening and 2 sprays before bedtime. 15 mL 11 09/12/2024 Active Start: 09-12-2024 End: 12-11-2024 take 2 spray(s) nasal route three times daily ipratropium (Atrovent) 42 mcg (0.06 %) nasal spray Administer 2 sprays into each nostril 3 times a day. 09/12/2024 Active take 2 spray(s) nasa l route four times daily ipratropium (ATROVENT) 0.06 % nasal spray 2 sprays by Each Nostril route 4 times daily Active ketorolac tromethamine 10 mg oral tablet (2 sources) Nonsteroidal Anti-inflammatory Drug, Cyclooxygenase Inhibitor Start: 07-05-2024 End: 07-05-2025 take 1 tablet by mouth every six hours as needed for pain ketorolac (TORADOL) 10 MG tablet Take 1 tablet by mouth every 6 hours as needed for Pain 14 tablet 07/05/2024 07/05/2025 Active loratadine 10 mg oral tablet (17 sources) take 1 tablet by mouth once daily loratadine (Claritin) 10 MG tablet Take 10 mg by mouth Daily Active Loratadine / Pseudoephedrine (5 sources) alpha-Adrenergic Agonist Start: 02-07-2024 take 1 tablet by mouth once at bedtime Loratadine-Pseu doephedrine (CLARITIN-D 24 HOUR PO) Take 1 tablet by mouth at bedtime 02/07/2024 Active Start: 02-07-2024 take 1 tablet by jessy th once daily Loratadine-Pseudoephedrine (CLARITIN-D 2 4 HOUR PO) Take 1 tablet by mouth daily 02/07/2024 Active minocycline 50 mg oral capsule (3 sources) Tetracycline-class Drug Start: 02-29-2024 take 1 capsule by mouth once daily minocycline (MINOCIN;DYNACIN) 50 MG capsule Indications: Bartholin cyst Take 1 capsule by mouth daily 30 capsule 5 02/29/2024 Active montelukast 10 mg oral tablet (20 sources) Leukotriene Receptor Antagonist Start: 05-16-2024 take 1 tablet by mouth once daily montelukast (SINGULAIR) 10 MG tablet Take 1 tablet by mouth nightly 90 tablet 3 06/18/2024 Active naloxone 0.4 mg in 10 mL sodium chloride syringe (1 source) Start: 07-05-2024 IntraVENous, PRN, Opioid Reversal, Starting on Mon07/05/24 at 1014, PRN if respiratory rate is less than 6/min and patient is difficult to arouse then notify physician STAT. Mix 9 mL of sodium chloride 0.9% with 0.4 mg (1 mL) of naloxone (NARCAN) in 10 mL syringe. (Note: dilution is 0.04 mg/mL) Give 0.08 mg (2 mL of special dilution), slow IV push, repeat up to 0.4 mg (10 mL) or until patient is responsive to physical stimulation and respiratory rate is equal to or greater than 6 breaths/min. Continue to observe, if no response within 3 minutes of administration of 0.4 mg (10 mL) total, repeat dose (0.4 mg as administered previously). Concentration 0.04 mg/mL, PACU only naproxen sodium 550 mg oral tablet (3 sources) Nonsteroidal Anti-inflammatory Drug Start: 03-16-2022 take 1 tablet by mouth twice daily as needed for pain naproxen sodium (ANAPROX DS) 550 MG tablet Indications: Chronic pelvic pain in female Take 1 tablet by mouth 2 times daily as needed for Pain 60 tablet 1 03/16/2022 Active take 1 tablet by jessy twice daily at mealtime naproxen (EC NAPROSYN) 500 MG EC tablet Take 500 mg by mouth 2 times daily (with meals) 0 Active Denhoff-3 Fatty Acids (OMEGA 3 PO) (4 sources) take 1000 mg by mout h at bedtime Denhoff-3 Fatty Acids (OMEGA 3 PO) Take 1,000 mg by mouth at bedtime Active Denhoff-3 Fatty Ac ids (OMEGA 3 PO) Take by mouth Active OXcarbazepine 150 mg oral tablet (13 sources) Anti-epileptic Agent Start: 10-23-2024 End: 12-31-2025 take 1 tablet by mouth in the morning OXcarbazepine (Trileptal) 150 MG tablet Indications: Chronic migraine without aura without status migrainosus, not intractable Take 1 tablet (150 mg) by mouth in the morning and 1 tablet (150 mg) before bedtime. 60 tablet 3 12/31/2024 12/31/2025 Active pantoprazole 40 mg delayed release oral tablet (20 sources) Proton Pump Inhibitor Start: 10-31-2023 take 1 tablet by mouth once daily pantoprazole (PROTONIX) 40 MG tablet Take 1 tablet by mouth daily 90 tablet 3 09/26/2024 Active promethazine hydrochloride 25 mg oral tablet (1 source) Phenothiazine Start: 07-14-2024 take 1 tablet by mouth four times daily as needed promethazine (PHENERGAN) 25 MG tablet TAKE 1 TABLET BY MOUTH FOUR TIMES A DAY NEEDED 07/14/2024 Active 24 hr propranolol hydrochloride 60 mg extended release oral capsule (3 sources) beta-Adrenergic Anirudh Start: 01-09-2025 End: 01-09-2026 take 1 capsule by mouth once daily propranolol LA (Inderal LA) 60 mg 24 hr capsule Indications: Syncope and collapse , Dizziness , Other chest pain , Palpitations , Shortness of breath Take 1 capsule (60 mg) by mouth once daily. Do not crush, chew, or split. 90 capsule 3 01/09/2025 01/09/2026 Active sertraline 25 mg oral tablet (15 sources) Serotonin Reuptake Inhibitor Start: 09-19-2024 End: 09-19-2025 take 1 tablet by mouth once daily sertraline (Zoloft) 25 mg tablet Indications: Syncope and collapse , Palpitations , Shortness of breath , Dizziness Take 1 tablet (25 mg) by mouth once daily. 90 tablet 3 09/19/2024 09/19/2025 Active vitamin e 90 mg oral capsule (19 sources) take 1 capsule by mouth in the morning vitamin E (E200) capsule Take 100 Units by mouth in the morning. Active take 1 capsule by mouth once carmelita ly vitamin E 90 mg (200 unit) capsule Take 100 Units by mouth once daily. Active Vitamin E LIQD (6 sources) Vitamin E LIQD 1 80 mg by Does not apply route at bedtime Active Vitamin E LIQD 1 80 mg by Does not apply route daily (with breakfast) Active Completed/Discontinued Medications Medication Drug Class(es) Dates Sig (Normalized) Sig (Original) acetaminophen 325 mg oral tablet (2 sources) Start: 07-05-2024 End: 07-05-2024 take 4000 mg by mouth every twenty-four hours 650 mg, Oral, ONCE, 1 dose, On Mon07/05/24 at 0730, Maximum dose of acetaminophen is 4000 mg from all sources in 24 hours., Pre-op (day of surgery) Start: 07-15-2022 End: 07-15-2022 acetaminophen (TYLENOL) tabl et 650 mg ceFAZolin 2000 mg injection (1 source) Cephalosporin Antibacterial Start: 07-05-2024 End: 07-05-2024 take 1 dose intravenously every hour 2,000 mg, IntraVENous, EMERGENCY REGISTRAR TO [facility].R., 1 dose, On Mon07/05/24 at 0730, Antimicrobial Indications: Surgical Prophylaxis, Administer within 1 hour prior to incision., Pre-op (day of surgery) dimenhyDRINATE 50 mg oral tablet (2 sources) Start: 07-05-2024 End: 07-05-2024 take 1 dose by mouth once daily 50 mg, Oral, ONCE, 1 dose, On Mon07/05/24 at 0730, Pre-op (day of surgery) Start: 07-15-2022 End: 07-15-2022 dimenhyDRINATE (DRAMAMINE) t ablet 50 mg 2 ml fentaNYL 0.05 mg/ml injection (2 sources) Opioid Agonist Start: 07-05-2024 50 mcg, IntraV ENous, EVERY 5 MIN PRN, 2 doses, Starting on Mon07/05/24 at 1014, Until Discontinued, Pain Severe (7-10), Pain Moderate (4-6), For Phase I. If Phase II oral narcotics have been administered in the last 60 minutes, do not administer IV narcotics unless specifically approved by provider., PACU only Start: 07-15-2022 50 mcg, IntraV ENous, EVERY 5 MIN PRN, 2 doses, Starting on Mon07/15/22 at 0933, Until Discontinued, Pain Moderate (4-6), Pain Severe (7-10) For Phase I. If Phase II oral narcotics have been administered in the last 60 minutes, do not administer IV narcotics unless specifically approved by provider. PACU only gabapentin 300 mg oral capsule (1 source) Anti-epileptic Agent Start: 07-05-2024 End: 07-05-2024 take 1 dose by mouth once daily 300 mg, Oral, ONCE, 1 dose, On Mon07/05/24 at 0730, Pre-op (day of surgery) Start: 07-05-2024 End: 07-05-2024 take 1 dose by mouth once daily 300 mg, Oral, ONCE, 1 dose, On Mon07/05/24 at 0730, Pre-op (day of surgery) 5 ml sodium chloride 9 mg/ml injection (12 sources) Start: 07-05-2024 5-40 mL, Intra VENous, EVERY 12 HOURS SCHEDULED (2 times per day), First dose on Mon07/05/24 at 1030, Until Discontinued, For Line Patency: Peripheral IV = 5 mL; Midline or Central Line = 10 mL/lumen. If following IV push medication, administer flush at same rate as the IV push. Flush volume is determined by type of infusion therapy being given. For non-viscous solutions use: Peripheral IV = 5 mL Midline or Central Line = 10 mL/lumen For viscous solutions (i.e. blood components, parenteral nutrition, contrast media, or after obtaining blood sample) use: Peripheral IV = 10 mL Midline or Central Line = 20 mL/lumen, PACU only Start: 07-05-2024 take 20 mL intraveno usly every hour IntraVENous, at 5-250 mL/hr, PRN, if patient receiving piggyback infusions and maintenance fluids are not ordered OR KVO fluids to protect IV site / prevent frequent line interruptions/ long duration, Starting on Mon07/05/24 at 1014, For piggyback infusion, administer at same rate as piggyback for a total of 25 mL. Enter 25 mL into dose field and piggyback rate into rate field of order. If piggyback is infusing at a rate less than 100 mL/hr, enter 25 mL into dose field and 100 mL/hr into rate field of order. For KVO fluids, enter rate of 20 mL/hr or less into rate field of order., PACU only Start: 07-05-2024 5-40 mL, Intra VENous, PRN, Starting on Mon07/05/24 at 1014, Until Discontinued, Line Care, After every IV line use, For Line Patency: Peripheral IV = 5 mL; Midline or Central Line = 10 mL/lumen. If following IV push medication, administer flush at same rate as the IV push. Flush volume is determined by type of infusion therapy being given. For non-viscous solutions use: Peripheral IV = 5 mL Midline or Central Line = 10 mL/lumen For viscous solutions (i.e. blood components, parenteral nutrition, contrast media, or after obtaining blood sample) use: Peripheral IV = 10 mL Midline or Central Line = 20 mL/lumen, PACU only Start: 07-15-2022 IntraVENous, a t 5-250 mL/hr, PRN, if patient receiving piggyback infusions and maintenance fluids are not ordered OR KVO fluids to protect IV site / prevent frequent line interruptions/ long duration, Starting on Mon07/15/22 at 0933 For piggyback infusion, administer at same rate as piggyback for a total of 25 mL. Enter 25 mL into dose field and piggyback rate into rate field of order. If piggyback is infusing at a rate less than 100 mL/hr, enter 25 mL into dose field and 100 mL/hr into rate field of order. For KVO fluids, enter rate of 20 mL/hr or less into rate field of order. PACU only Start: 07-15-2022 0.9 % sodium c hloride infusion Start: 07-15-2022 take 1 dose intraven ously twice daily 5-40 mL, IntraVENous, EVERY 12 HOURS SCHEDULED (2 times per day), First dose on Mon07/15/22 at 1000, Until Discontinued For Line Patency: Peripheral IV = 5 mL; Midline or Central Line = 10 mL/lumen. If following IV push medication, administer flush at same rate as the IV push. Flush volume is determined by type of infusion therapy being given. For non-viscous solutions use: Peripheral IV = 5 mL Midline or Central Line = 10 mL/lumen For viscous solutions (i.e. blood components, parenteral nutrition, contrast media, or after obtaining blood sample) use: Peripheral IV = 10 mL Midline or Central Line = 20 mL/lumen PACU only Start: 07-15-2022 take 5-40 mL intrave nously once as needed 5-40 mL, IntraVENous, PRN, Starting on Mon07/15/22 at 0933, Until Discontinued, Line Care, After every IV line use For Line Patency: Peripheral IV = 5 mL; Midline or Central Line = 10 mL/lumen. If following IV push medication, administer flush at same rate as the IV push. Flush volume is determined by type of infusion therapy being given. For non-viscous solutions use: Peripheral IV = 5 mL Midline or Central Line = 10 mL/lumen For viscous solutions (i.e. blood components, parenteral nutrition, contrast media, or after obtaining blood sample) use: Peripheral IV = 10 mL Midline or Central Line = 20 mL/lumen PACU only Start: 07-15-2022 sodium chlorid e flush 0.9 % injection 5-40 mL Tc-99m tetrofosmin (Myoview) injection 10 millicurie (1 source) Start: 08-26-2024 End: 08-26-2024 10 millicurie, intravenous, Once in imaging, Starting on Mon08/26/24 at 0829, For 1 dose, Administer 45 to 90 minutes prior to imaging unless otherwise indicated. Tc-99m tetrofosmin (Myoview) injection 30 millicurie (1 source) Start: 08-26-2024 End: 08-26-2024 30 millicurie, intravenous, Once in imaging, Starting on Mon08/26/24 at 0957, For 1 dose, Administer 45 to 90 minutes prior to imaging unless otherwise indicated. Problems Active Problems Problem Classification Problem Date Documented Date Episodic/Chronic Administrative/soci al admission (9 sources) Patient encounter status; Translations: [Person consulting for explanation of examination or test findings] Onset: 5 01-09-2025 Episodic Asthma (20 sources) Asthma; Translations: [Unspecified asthma, uncomplicated] Onset: 5 07-09-2015 Chronic Conditions associated with dizziness or vertigo (20 sources) Dizziness; Translations: [Dizziness and giddiness] Onset: 4 08-08-2024 Episodic Disorders of lipid metabolism (14 sources) Mixed hypercholesterolemia and hypertriglyceridemia; Translations: [Mixed hyperlipidemia] Onset: 4 06-14-2024 Chronic Endometriosis (7 sources) Endometriosis (clinical); Translations: [Endometriosis, unspecified] Onset: 4 07-05-2024 Chronic Genitourinary symptoms and ill-defined conditions (8 sources) Hematuria, unspecified; Translations: [Increased frequency of urination] Onset: 1 Episodic Headache; including migraine (2 sources) Migraine without aura, not refractory ; Translations: [Chronic migraine without aura, not intractable, without status migrainosus] 10-23-2024 Chronic Menstrual disorders (5 sources) Dysmenorrhea; Translations: [Dysmenorrhea, unspecified] Onset: 5 03-11-2025 Chronic Nausea and vomiting (1 source) Nausea; Translations: [NAUSEA] Onset: 1 Episodic Nonmalignant breast conditions (1 source) Mastodynia; Translations: [Mastodynia] Episodic Other ear and sense organ disorders (2 sources) Impacted cerumen of bilateral ears; Translations: [Impacted cerumen, bilateral] 03-12-2025 Episodic Other nervous system disorders (4 sources) Ataxia; Translations: [Ataxia, unspecified] 10-23-2024 Episodic Other nutritional; endocrine; and metabolic disorders (17 sources) Body mass index 30+ - obesity; Translations: [Body mass index (BMI) 35.0-35.9, adult] Onset: 4 08-08-2024 Chronic Other nutritional; endocrine; and metabolic disorders (2 sources) Body mass index (BMI) 37.0-37.9, adult; Translations: [Body mass index (BMI) 37.0-37.9, adult] Onset: 5 Chronic Other nutritional; endocrine; and metabolic disorders (2 sources) Body mass index (BMI) 36.0-36.9, adult; Translations: [Body mass index (BMI) 36.0-36.9, adult] Onset: 4 Chronic Other nutritional; endocrine; and metabolic disorders (2 sources) Body mass index (BMI) 35.0-35.9, adult; Translations: [Body mass index (BMI) 35.0-35.9, adult] Onset: 4 Chronic Other upper respiratory disease (4 sources) Vasomotor rhinitis; Translations: [Vasomotor rhinitis] 09-12-2024 Chronic Other upper respiratory disease (4 sources) Chronic rhinitis; Translations: [Chronic rhinitis] 09-12-2024 Chronic Spondylosis; intervertebral disc disorders; other back problems (1 source) Pain in thoracic spine; Translations: [PAIN IN THORACIC SPINE] Onset: 1 Episodic Transient cerebral ischemia (3 sources) Vertebrobasilar artery syndrome; 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] Onset: 5 03-12-2025 Chronic Past or Other Problems Problem Classification Problem Date Documented Date Episodic/Chronic Abdominal pain (8 sources) Pain in pelvis; Translations: [Pelvic and perineal pain] Onset: 05-07-2021 Episodic Cardiac dysrhythmias (20 sources) Palpitations; Translations: [Palpitations] Onset: 08-08-2024 08-08-2024 Episodic Diabetes mellitus without complication (4 sources) Impaired fasting glycemia; Translations: [Impaired fasting glucose] Onset: 05-13-2024 06-14-2024 Episodic Nonspecific chest pain (20 sources) Chest pain; Translations: [Chest discomfort] Onset: 08-08-2024 08-08-2024 Episodic Other lower respiratory disease (20 sources) Dyspnea; Translations: [Shortness of breath] Onset: 08-08-2024 08-08-2024 Episodic Other lower respiratory disease (3 sources) Shortness of breath; Translations: [Shortness of breath] Onset: 08-08-2024 Episodic Other nervous system disorders (13 sources) Postoperative pain ; Translations: [Other acute postprocedural pain] Onset: 01-16-2023 Episodic Other nervous system disorders (1 source) Other acute postprocedural pain; Translations: [Other acute postprocedural pain] Onset: 07-05-2024 Episodic Other nervous system disorders (1 source) Ataxia, unspecified; Translations: [Ataxia, unspecified] Onset: 11-01-2024 Episodic Other screening for suspected conditions (not mental disorders or infectious disease) (20 sources) Electrocardiogram abnormal; Translations: [Abnormal electrocardiogram [ECG] [EKG]] Onset: 08-08-2024 08-08-2024 Episodic Residual codes; unclassified (17 sources) Never smoked tobacco; Translations: [Other specified health status] Onset: 08-08-2024 08-08-2024 Episodic Residual codes; unclassified (11 sources) Family history of syncope; Translations: [Family history of other specified conditions] Onset: 09-19-2024 09-20-2024 Episodic Residual codes; unclassified (2 sources) Family history of other specified conditions; Translations: [Family history of other specified conditions] Onset: 09-19-2024 Episodic Residual codes; unclassified (2 sources) Other specified health status; Translations: [Other specified health status] Onset: 08-08-2024 Episodic Syncope (20 sources) Syncope and collapse; Translations: [Syncope and collapse] Onset: 09-19-2024 08-08-2024 Episodic Results Test Name Value Interpretation Reference Range Facility Basic Metabolic Panelon 07-0 Anion gap [Moles/Vol] 13 mmol/L 9 - 16 mmol/L [facility] Calcium [Mass/Vol] 8.9 mg/dL 8.6 - 10. 4 mg/dL [facility] Chloride [Moles/Vol] 103 mmol/L 98 - 10 7 mmol/L [facility] CO2 [Moles/Vol] 22 mmol/L 20 - 31 mmol/L [facility] Creatinine [Mass/Vol] 0.7 mg/dL 0.50 - 0.90 mg/dL [facility] Est, Glom Emmy Rate - PINF [facility] Comment on above: These results are not intended for use [...] following therapy that affects renal tubular secretion. Glucose [Mass/Vol] 94 mg/dL 74 - 99 mg/dL [facility] Interpretation and review of laboratory results Abnormal [facility] Potassium [Moles/Vol] 4.3 mmol/L 3.7 - 5.3 mmol/L [facility] Sodium [Moles/Vol] 138 mmol/L 136 - 145 mmol/L [facility] Urea nitrogen [Mass/Vol] 20 mg/dL 6 - 20 mg/dL [facility] Urea nitrogen/Creatinine [Mass ratio] 29 mg/mg High 9 - 20 [facility] Basic Metabolic Profon 04-09 Anion gap [Moles/Vol] 13 mmol/L Normal 9-16 [facility] Comment on above: Performed By: #### B MP #### [facility] [address] [place] [address] Senior Windows Systems Engineer: Thuan Murphy MD BUN/CRE Ratio 29 High 9-20 [facility] Comment on above: Performed By: #### B MP #### [facility] [address] [place] [address] Senior Windows Systems Engineer: Thuan Murphy MD Calcium [Mass/Vol] 8.9 mg/dL Normal 8.6-10.4 [facility] Comment on above: Performed By: #### B MP #### [facility] [address] [place] [address] Senior Windows Systems Engineer: Thuan Murphy MD Chloride [Moles/Vol] 103 mmol/L Normal 98-107 [facility] Comment on above: Performed By: #### B MP #### [facility] [address] [place] [address] Senior Windows Systems Engineer: Thuan Murphy MD CO2 [Moles/Vol] 22 mmol/L Normal 20-31 [facility] Comment on above: Performed By: #### B MP #### [facility] [address] [place] [address] Senior Windows Systems Engineer: Thuan Murphy MD Creatinine [Mass/Vol] 0.7 mg/dL Normal 0.50-0.90 [facility] Comment on above: Performed By: #### B MP #### [facility] [address] [place] [address] Senior Windows Systems Engineer: Thuan Murphy MD GFR/1.73 sq M.predicted among non-blacks MDRD (S/P/Bld) [Vol rate/Area] mL/min/{1.73_m2} Normal >60 [facility] Comment on above: Result Comment: These results are not intended for [...] following therapy that affects renal tubular secretion. Performed By: #### B MP #### [facility] [address] [place] [address] Senior Windows Systems Engineer: Thuan Murphy MD Glucose [Mass/Vol] 94 mg/dL Normal 74-99 [facility] Comment on above: Performed By: #### B MP #### [facility] [address] [place] [address] Senior Windows Systems Engineer: Thuan Murphy MD Potassium [Moles/Vol] 4.3 mmol/L Normal 3.7-5.3 [facility] Comment on above: Performed By: #### B MP #### [facility] [address] [place] [address] Senior Windows Systems Engineer: Thuan Murphy MD Sodium [Moles/Vol] 138 mmol/L Normal 136-145 [facility] Comment on above: Performed By: #### B MP #### [facility] [address] [place] [address] Senior Windows Systems Engineer: Thuan Murphy MD Urea nitrogen [Mass/Vol] 20 mg/dL Normal 6-20 [facility] Comment on above: Performed By: #### B MP #### [facility] [address] [place], [place] [id number] Senior Windows Systems Engineer: Thuan Murphy MD Protein / creatinine ratio, urineon 04-09-2025 Creatinine (U) [Mass/Vol] 191 mg/dL 28.0 - 217.0 mg/dL [facility] Protein (U) [Mass/Vol] 11 mg/dL [facility] Comment on above: No normal range esta blished. Urine Total Protein Creatinine Ratio 0.06 0.00 - 0.20 [facility] Protein,Tot,Keller Uron 2024 Creatinine [Mass/Vol] 191.0 mg/dL Normal 28.0-217.0 [facility] Comment on above: Performed By: #### U RTPRT #### [address] [place], [place] [id number] Senior Windows Systems Engineer: Thuan Murphy MD Tot Prot. Conc. 11 mg/dL Normal [facility] Comment on above: Result Comment: No n ormal range established. Performed By: #### U RTPRT #### [facility] [address] [place] [address] Senior Windows Systems Engineer: Thuan Murphy MD TP/Cre Ratio 0.06 Normal 0.00-0.20 [facility] Comment on above: Performed By: #### U RTPRT #### [facility] [address] [place] [address] Senior Windows Systems Engineer: Thuan Murphy MD Urinalysison 04-09-2025 Bilirubin Ql (U) Negative NEGATIVE [facility] Clarity (U) Clear Clear [facility] Color (U) Yellow Yellow [facility] Glucose Test strip (U) [Mass/Vol] Negative NEGATIVE mg/dL [facility] Hemoglobin Auto test strip Ql (U) Negative NEGATIVE [facility] Interpretation and review of laboratory results Abnormal [facility] Ketones (U) [Mass/Vol] Negative NEGAT CLEM mg/dL [facility] Leukocyte esterase Test strip Ql (U) Negative NEGATIVE [facility] Nitrite Ql (U) Negative NEGATIVE [facility] pH (U) 6 [pH] 5.0 - 9.0 [facility] Protein (U) [Mass/Vol] Negative NEGAT CLEM mg/dL [facility] Specific gravity (U) [Rel density] High 1.010 - 1.020 [facility] Urobilinogen Qn (U) Normal 0.0 - 1. 0 EU/dL [facility] Urinalysis, Routineon 2024 Bilirubin, SemiQt,Ur Negative Normal NEG [facility] Comment on above: Performed By: #### V D25 #### [address] [address] Senior Windows Systems Engineer: Nando Manuel MD #### BMP #### [facility] [address] [place] [address] [place] [address] Senior Windows Systems Engineer: Thuan Murphy MD Blood, Urine Negative Normal NEG [facility] Comment on above: Performed By: #### V D25 #### [facility] [address] [place] [address] Senior Windows Systems Engineer: Nando Manuel MD #### BMP #### [facility] [address] [place] [address] [place] [address] Senior Windows Systems Engineer: Thuan Murphy MD Clarity (U) Clear Normal CLEAR [facility] Comment on above: Performed By: #### V D25 #### [address] [address] Senior Windows Systems Engineer: Nando Manuel MD #### BMP #### [facility] [address] [place] [address] [place], [place] [id number] Senior Windows Systems Engineer: Thuan Murphy MD Color (U) Yellow Normal YEL [facility] Comment on above: Performed By: #### V D25 #### [address] [address] Senior Windows Systems Engineer: Nando Manuel MD #### BMP #### [address] [place], [place] [id number] Senior Windows Systems Engineer: Thuan Murphy MD Glucose Ql (U) Negative Normal NEG [facility] Comment on above: Performed By: #### V D25 #### [address] [address] Senior Windows Systems Engineer: Nando Manuel MD #### BMP #### [address] [place], [place] [phone] Senior Windows Systems Engineer: Thuan Murphy MD Ketones Ql (U) Negative Normal NEG [facility] Comment on above: Performed By: #### V D25 #### [address] [address] Senior Windows Systems Engineer: Nando Manuel MD #### BMP #### [address] [place], [place] [phone] Senior Windows Systems Engineer: Thuan Murphy MD Leukocyte esterase Test strip Ql (U) Negative Normal NEG [facility] Comment on above: Performed By: #### V D25 #### [address] [address] Senior Windows Systems Engineer: Nando Manuel MD #### BMP #### [address] [place], [place] [phone] Senior Windows Systems Engineer: Thuan Murphy MD Nitrite,Ur Negative Normal NEG [facility] Comment on above: Performed By: #### V D25 #### [address] [address] Senior Windows Systems Engineer: Nando Manuel MD #### BMP #### [facility] [address] [place] [address] [place] [address] Senior Windows Systems Engineer: Thuan Murphy MD PH,Ur 6.0 Normal 5.0-9.0 [facility] Comment on above: Performed By: #### V D25 #### [address] [address] Senior Windows Systems Engineer: Nando Manuel MD #### BMP #### [address] [place] [place] [address] Senior Windows Systems Engineer: Thuan Murphy MD Protein Ql (U) Negative Normal NEG [facility] Comment on above: Performed By: #### V D25 #### [address] [address] Senior Windows Systems Engineer: Nando Manuel MD #### BMP #### [address] [place] [place] [address] Senior Windows Systems Engineer: Thuan Murphy MD Spec. [place],Ur >1.030 High 1.010-1.020 [facility] Comment on above: Performed By: #### V D25 #### [address] [address] Senior Windows Systems Engineer: Nando Manuel MD #### BMP #### [address] [place] [place] [address] Senior Windows Systems Engineer: Thuan Murphy MD Urobilinogen,Ur Normal Normal 0.0-1.0 [facility] Comment on above: Performed By: #### V D25 #### [address] [address] Senior Windows Systems Engineer: Nando Manuel MD #### BMP #### [facility] [address] [place] [address] Senior Windows Systems Engineer: Thuan Murphy MD CT angio neckon 03-26-2025 CT angio neck [facility] [place] [address] [place] [id number] Scan Report Signed Patient: Denise Harley MR#: [id number] : 1990 Acct:[id number] Age/Sex: 34 / F ADM Date: 03/26/25 Loc: CT Room: Type: [facility] Attending Dr: Ayleen Clark Jr, MD Copies to: AYLEEN CLARK MD Ordering Provider: AYLEEN CLARK MD Date of Service: 03/26/25 CT/CT angio neck: G45.0 ([id number]) CT/CT angio head: G45.0 CT angio head, [...] Corcoran M.D. 03/26/2025 6:10 PM Dictation Location: [facility]17 Transcribed By: MIGUEL 03/26/251809 Dictated By: Og Corcoran II, MD 03/26/25 180 Signed By: 03/26/251809 Normal [facility] Auditory function testson Bilateral Normal hearing [facility] US Kidneyon 02-01-2025 Unremarkable ultrasound of the kidneys and urinary bladder. [facility] EXAMINATION: RETROPERITONEAL ULTRASOUND OF THE KIDNEYS AND URINARY BLADDER 01/31/2025 COMPARISON: None HISTORY: ORDERING SYSTEM PROVIDED HISTORY: Decreased urine output TECHNOLOGIST PROVIDED HISTORY: FINDINGS: Kidneys: The right kidney measures 10.3 cm in length and the left kidney measures 10 cm in length. Kidneys demonstrate normal cortical echogenicity. No evidence of hydronephrosis or intrarenal stones. Bladder: Unremarkable appearance of the bladder. No significant post void residual. [facility] Maxime Smyth, DO - 02/01/2025 EXAMINATION: RETROPERITONEAL ULTRASOUND OF THE KIDNEYS AND URINARY BLADDER 01/31/2025 COMPARISON: None HISTORY: ORDERING SYSTEM PROVIDED HISTORY: Decreased urine output TECHNOLOGIST PROVIDED HISTORY: FINDINGS: Kidneys: The right kidney measures 10.3 cm in length and the left kidney measures 10 cm in length. Kidneys demonstrate normal cortical echogenicity. No evidence of hydronephrosis or intrarenal stones. Bladder: Unremarkable appearance of the bladder. No significant post void residual. IMPRESSION: Unremarkable ultrasound of the kidneys and urinary bladder. [facility] US KidneyOrdered By: Maxime Smyth on 02-01-2025 [facility] Work Phone: US RENAL COMPLETEon 02-02-20 US RENAL COMPLETE EXAMINATION: RETROPERITONEAL ULTRASOUND OF THE KIDNEYS AND URINARY BLADDER 01/31/2025 COMPARISON: None HISTORY: ORDERING SYSTEM PROVIDED HISTORY: Decreased urine output TECHNOLOGIST PROVIDED HISTORY: FINDINGS: Kidneys: The right kidney measures 10.3 cm in length and the left kidney measures 10 cm in length. Kidneys demonstrate normal cortical echogenicity. No evidence of hydronephrosis or intrarenal stones. Bladder: Unremarkable appearance of the bladder. No significant post void residual. IMPRESSION: Unremarkable ultrasound of the kidneys and urinary bladder. Interpreted by: Maxime Smyth DO Signed by: Maxime Smyth DO 02/01/25 Final result Normal [facility] Kidneyon 01-31-2025 Radiology Study observation (narrative) [facility] B12/Folate Panelon Cobalamin (Vitamin B12) [Mass/Vol] 597 pg/mL Normal 232-1245 [facility] Comment on above: Performed By: #### B 12FOL #### [facility] [address] [place] [address] Senior Windows Systems Engineer: Nando Manuel MD Folic Acid 12.8 ng/mL Normal 4.8-24.2 [facility] Comment on above: Performed By: #### B 12FOL #### [facility] [address] [place] [id number] Senior Windows Systems Engineer: Nando Manuel MD Vitamin B12 & Folateon 01-23 Cobalamin (Vitamin B12) [Mass/Vol] 597 pg/mL 232 - 1245 pg/mL [facility] Folate [Mass/Vol] 12.8 ng/mL 4.8 - 24.2 ng/mL [facility] Vitamin D 25 Hydroxyon 01-23 25-hydroxyvitamin D3 [Mass/Vol] 39.5 ng/mL 30.0 - 100.0 ng/mL [facility] Comment on above: Reference Range: Vitamin D status Range Deficiency <20 ng/mL Mild Deficiency 20-30 ng/mL Sufficiency 30-100 ng/mL Toxicity >100 ng/mL [facility] Vitamin D 25 OHon 01-23-2025 Vitamin D 25 OH 39.5 ng/mL Normal 30.0-100.0 [facility] Comment on above: Result Comment: Reference Range: Vitamin D status Range Deficiency <20 ng/mL Mild Deficiency 20-30 ng/mL Sufficiency 30-100 ng/mL Toxicity >100 ng/mL Performed By: #### V D25 #### [facility] [address] [place], [place] [id number] Senior Windows Systems Engineer: Nando Manuel MD #### BMP #### [facility] [address] [place] [address] Senior Windows Systems Engineer: Thuan Murphy MD Basic Metabolic Panelon - Anion gap [Moles/Vol] 11 mmol/L 9 - 16 mmol/L [facility] Calcium [Mass/Vol] 9.3 mg/dL 8.6 - 10. 4 mg/dL [facility] Chloride [Moles/Vol] 102 mmol/L 98 - 10 7 mmol/L [facility] CO2 [Moles/Vol] 26 mmol/L 20 - 31 mmol/L [facility] Creatinine [Mass/Vol] 0.7 mg/dL 0.50 - 0.90 mg/dL [facility] [employer] Est, Glom Filt Rate - PINF [facility] Comment on above: These results are not intended for use [...] following therapy that affects renal tubular secretion. Glucose [Mass/Vol] 89 mg/dL 74 - 99 mg/dL [facility] Interpretation and review of laboratory results Abnormal [facility] [employer] Potassium [Moles/Vol] 3.7 mmol/L 3.7 - 5.3 mmol/L [facility] Sodium [Moles/Vol] 139 mmol/L 136 - 145 mmol/L [facility] Urea nitrogen [Mass/Vol] 18 mg/dL 6 - 20 mg/dL [facility] [facility] Urea nitrogen/Creatinine [Mass ratio] 26 mg/mg High 9 - 20 [facility] Basic Metabolic Profon 01-22 Anion gap [Moles/Vol] 11 mmol/L Normal 9-16 [facility] Comment on above: Performed By: #### V D25 #### [facility] [address] [place] [address] Senior Windows Systems Engineer: Nando Manuel MD #### BMP #### [facility] [address] [place], [place] [phone] Senior Windows Systems Engineer: Thuan Murphy MD BUN/CRE Ratio 26 High 9-20 [facility] Comment on above: Performed By: #### V D25 #### [facility] [address] [place] [address] Senior Windows Systems Engineer: Nando Manuel MD #### BMP #### [facility] [address] [place], [place] [id number] Senior Windows Systems Engineer: Thuan Murphy MD Calcium [Mass/Vol] 9.3 mg/dL Normal 8.6-10.4 [facility] Comment on above: Performed By: #### V D25 #### [facility] [address] [place] [address] Senior Windows Systems Engineer: Nando Manuel MD #### BMP #### [facility] [address] [place], [place] [id number] Senior Windows Systems Engineer: Thuan Murphy MD Chloride [Moles/Vol] 102 mmol/L Normal 98-107 [facility] Comment on above: Performed By: #### V D25 #### [facility] [address] [place] [address] Senior Windows Systems Engineer: Nando Manuel MD #### BMP #### [facility] [address] [place], [place] [address] Senior Windows Systems Engineer: Thuan Murphy MD CO2 [Moles/Vol] 26 mmol/L Normal 20-31 [facility] Comment on above: Performed By: #### V D25 #### [place] [id number] [place] [address] Senior Windows Systems Engineer: Nando Manuel MD #### BMP #### [facility] [address] [place], [place] [phone] Senior Windows Systems Engineer: Thuan Murphy MD Creatinine [Mass/Vol] 0.7 mg/dL Normal 0.50-0.90 [facility] Comment on above: Performed By: #### V D25 #### [address] [address] Senior Windows Systems Engineer: Nando Manuel MD #### BMP #### [facility] [address] [place] [address] Senior Windows Systems Engineer: Thuan Murphy MD GFR/1.73 sq M.predicted among non-blacks MDRD (S/P/Bld) [Vol rate/Area] mL/min/{1.73_m2} Normal >60 [facility] Comment on above: Result Comment: These results are not intended for [...] following therapy that affects renal tubular secretion. Performed By: #### V D25 #### [address] [address] Senior Windows Systems Engineer: Nando Manuel MD #### BMP #### [facility] [address] [place] [address] Senior Windows Systems Engineer: Thuan Murphy MD Glucose [Mass/Vol] 89 mg/dL Normal 74-99 [facility] Comment on above: Performed By: #### V D25 #### [address] [address] Senior Windows Systems Engineer: Nando Manuel MD #### BMP #### [address] [place], [place] [phone] Senior Windows Systems Engineer: Thuan Murphy MD Potassium [Moles/Vol] 3.7 mmol/L Normal 3.7-5.3 [facility] Comment on above: Performed By: #### V D25 #### [address] [address] Senior Windows Systems Engineer: Nando Manuel MD #### BMP #### [address] [place], [place] 559[address]83 Senior Windows Systems Engineer: Thuan Murphy MD Sodium [Moles/Vol] 139 mmol/L Normal 136-145 [facility] Comment on above: Performed By: #### V D25 #### [address] [address] Senior Windows Systems Engineer: Nando Manuel MD #### BMP #### [address] [place], [place] [phone] Senior Windows Systems Engineer: Thuan Murphy MD Urea nitrogen [Mass/Vol] 18 mg/dL Normal 6-20 [facility] Comment on above: Performed By: #### V D25 #### [address] [address] Senior Windows Systems Engineer: Nando Manuel MD #### BMP #### [address] [place], [place] [phone] Senior Windows Systems Engineer: Thuan Murphy MD Cult,Urineon 01-11-2025 Cult,Urine Specimen Description .CLEAN CATCH URINE Special Requests Site: Urine Culture NO SIGNIFICANT GROWTH Report Status FINAL 01/11/2025 Normal [facility] Comment on above: Performed By: #### V D25 #### [address] [address] Senior Windows Systems Engineer: Nando Manuel MD #### BMP #### [address] [place] [address] Senior Windows Systems Engineer: Thuan Murphy MD Urinalysison 01-10-2025 Bilirubin Ql (U) Negative NEGATIVE [facility] Glucose Test strip (U) [Mass/Vol] Negative NEGATIVE mg/dL [facility] Hemoglobin Auto test strip Ql (U) Negative NEGATIVE [facility] Interpretation and review of laboratory results Abnormal [facility] Ketones (U) [Mass/Vol] Negative NEGAT CLEM mg/dL [facility] Nitrite Ql (U) Negative NEGATIVE [place] [facility] pH (U) 6.5 [pH] 5.0 - 9.0 [facility] Protein (U) [Mass/Vol] Negative NEGAT CLEM mg/dL [facility] Specific gravity (U) [Rel density] 1.025 High 1.010 - 1.020 [facility] Urobilinogen Qn (U) Normal 0.0 - 1. 0 EU/dL [facility] Urinalysis, Routineon 2024 Clarity (U) Clear Normal CLEAR [facility] Comment on above: Performed By: #### U A #### [address] [place] [address] Senior Windows Systems Engineer: Thuan Murphy MD Color (U) Yellow Normal YEL [facility] Comment on above: Performed By: #### U A #### [address] [place] [address] Senior Windows Systems Engineer: Thuan Murphy MD Leukocyte esterase Test strip Ql (U) Negative Normal NEG [facility] Comment on above: Performed By: #### U A #### [address] [place] [address] Senior Windows Systems Engineer: Thuan Murphy MD Bilirubin, SemiQt,Ur Negative Normal NEG [facility] Comment on above: Performed By: #### U A #### [facility] [address] [place] [address] [place] [place], [place] [phone] Senior Windows Systems Engineer: Thuan Murphy MD Blood, Urine Negative Normal NEG [facility] Comment on above: Performed By: #### U A #### [facility] [address] [place] [address] [place] [address] Senior Windows Systems Engineer: Thuan Murphy MD Glucose Ql (U) Negative Normal NEG [facility] Comment on above: Performed By: #### U A #### [facility] [address] [place] [address] [place] [address] Senior Windows Systems Engineer: Thuan Murphy MD Ketones Ql (U) Negative Normal NEG [facility] Comment on above: Performed By: #### U A #### [facility] [address] [place] [address] [place] [address] Senior Windows Systems Engineer: Thuan Murphy MD Nitrite,Ur Negative Normal NEG [facility] Comment on above: Performed By: #### U A #### [facility] [address] [place] [address] [place] [address] Senior Windows Systems Engineer: Thuan Murphy MD PH,Ur 6.5 Normal 5.0-9.0 [facility] Comment on above: Performed By: #### U A #### [facility] [address] [place] [address] [address] [place], [place] [phone] Senior Windows Systems Engineer: Thuan Murphy MD Protein Ql (U) Negative Normal NEG [facility] Comment on above: Performed By: #### U A #### [facility] [address] [place] [address] [address] [place], [place] 3912883 Senior Windows Systems Engineer: Thuan Murphy MD Spec. [place],Ur 1.025 High 1.010-1.020 [facility] Comment on above: Performed By: #### U A #### [facility] [address] [place] [address] [address] [place], [place] [phone] Senior Windows Systems Engineer: Thuan Murphy MD Urobilinogen,Ur Normal Normal 0.0-1.0 [facility] Comment on above: Performed By: #### U A #### [facility] [address] [place] [address] Senior Windows Systems Engineer: Thuan Murphy MD TRANSTHORACIC ECHO (TTE) [facility] 12-30-2024 TRANSTHORACIC ECHO (TTE) COMPLETE [address], [address], [place] [id number] TRANSTHORACIC ECHOCARDIOGRAM REPORT Patient Name: DENISE HARLEY Reading Physician: [id number] Lori Esquivel MD, [facility] Study Date: 12/30/2024 Ordering Provider: [id number] ELLI VALDIVIA MRN/PID: [id number] Fellow: Nurse: Date of /Age: 12 1990 / 34 [employer] Operator: Carley gallagher RDCS, RT(R), RDMS, RVT Gender Assigned at Additional Staff: : Height: 170.18 cm Admit Date: Weight: 104.33 kg Admission Status: Outpatient BSA / BMI: 2.15 m2 / 36.02 Department Location: [facility] Heart kg/m2 [place] Blood Pressure: 110 /80 mmHg Study Type: TRANSTHORACIC ECHO (TTE) COMPLETE Diagnosis/ICD: Shortness of breath-R06.02; Syncope-R55 Indication: SOB Syncope CPT Codes: Echo Complete w Full Doppler-23685 Patient History: Pertinent History: Abnormal ekg, Chest Pain, Hyperlipidemia and Palpitations. Study Detail: The following Echo studies were performed: 2D, M-Mode, Doppler and color flow. PHYSICIAN INTERPRETATION: Left Ventricle: Left ventricular ejection fraction is normal, by visual estimate at 60-65%. There are no regional wall motion abnormalities. The left ventricular cavity size is normal. There is normal septal and normal posterior left ventricular wall thickness. Spectral Doppler shows a normal pattern of left ventricular diastolic filling. Left Atrium: The left atrial size is normal. Right Ventricle: The right ventricle is normal in size. There is normal right ventricular global systolic function. Right Atrium: The right atrial size is normal. Aortic Valve: The aortic valve is trileaflet. The aortic valve dimensionless index is 0.79. There is no evidence of aortic valve regurgitation. The peak instantaneous gradient of the aortic valve is 6 mmHg. The mean gradient of the aortic valve is 4 mmHg. Mitral Valve: The mitral valve is normal in structure. The peak instantaneous gradient of the mitral valve is 4 mmHg. There is no evidence of mitral valve regurgitation. Tricuspid Valve: The tricuspid valve is structurally normal. No evidence of tricuspid regurgitation. Pulmonic Valve: The pulmonic valve is structurally normal. There is no indication of pulmonic valve regurgitation. Pericardium: No pericardial effusion noted. Aorta: The aortic root is normal. In comparison to the previous echocardiogram(s): No previous studies are available for comparison. CONCLUSIONS: 1. Left ventricular ejection fraction is normal, by visual estimate at 60-65%. 2. No previous studies are available for comparison. QUANTITATIVE DATA SUMMARY: 2D MEASUREMENTS: Normal Ranges: Ao Root s: 3.00 cm LAs: 3.72 cm (2.7-4.0cm) RVIDd: 3.08 cm (0.9-3.6cm) IVSd: 0.82 cm (0.6-1.1cm) LVPWd: 0.72 cm (0.6-1.1cm) LVIDd: 5.39 cm (3.9-5.9cm) LVIDs: 4.04 cm LV Mass Index: 68.7 g/m2 LVEDV Index: 44.49 ml/m2 LV % FS 25.0 % LEFT ATRIUM: Normal Ranges: LA Vol A4C: 32.9 ml (22+/-6mL/m2) LA Vol A2C: 35.5 ml LA Vol BP: 35.2 ml LA Vol Index A4C: 15.4ml/m2 LA Vol Index A2C: 16.5 ml/m2 LA Vol Index BP: 16.4 ml/m2 LA Vol A4C: 29.2 ml LA Vol A2C: 34.4 ml LA Vol Index BSA: 14.8 ml/m2 LV SYSTOLIC FUNCTION: Normal Ranges: EF-A4C View: 56 % (>=55%) EF-A2C View: 69 % EF-Biplane: 64 % EF-Visual: 63 % LV EF Reported: 63 % LV DIASTOLIC FUNCTION: Normal Ranges: MV Peak E: 0.64 m/s (0.7-1.2 m/s) MV Peak A: 0.61 m/s (0.42-0.7 m/s) E/A Ratio: 1.05 (1.0-2.2) MV e' 0.083 m/s (>8.0) MV lateral e' 0.12 m/s MV medial e' 0.05 m/s E/e' Ratio: 7.74 (<8.0) PulmV Sys Thaddeus: 45.05 cm/s PulmV Tenorio Thaddeus: 46.00 cm/s PulmV S/D Thaddeus: 0.98 PulmV A Revs Thaddeus: 28.43 cm/s PulmV A Revs Dur: 91.34 msec MITRAL VALVE: Normal Ranges: MV Vmax: 0.95 m/s (<=1.3m/s) MV peak P.6 mmHg (<5mmHg) MV mean P.4 mmHg (<48mmHg) MV VTI: 31.66 cm (10-13cm) MV DT: 332 msec (150-240msec) MV PHT: 36 msec (30-60msec) MVA by PHT: 6.11 cm2 (4-6cm2) AORTIC VALVE: Normal Ranges: AoV Vmax: 1.27 m/s (<=1.7m/s) AoV Peak P.5 mmHg (<20mmHg) AoV Mean P.9 mmHg (1.7-11.5mmHg) LVOT Max Thaddeus: 0.92 m/s (<=1.1m/s) AoV VTI: 29.90 cm (18-25cm) LVOT VTI: 23.54 cm LVOT Diameter: 1.97 cm (1.8-2.4cm) AoV Area, VTI: 2.40 cm2 (2.5-5.5cm2) AoV Area,Vmax: 2.19 cm2 (2.5-4.5cm2) AoV Dimensionless Index: 0.79 RIGHT VENTRICLE: RV Basal 3.55 cm RV Major 7.0 cm TAPSE: 20.9 mm RV s' 0.15 m/s TRICUSPID VALVE/RVSP: Normal Ranges: Peak TR Velocity: 2.51 m/s Est. RA Pressure: 5 mmHg RV Syst Pressure: 30 mmHg (< 30mmHg) PULMONIC VALVE: Normal Ranges: RVOT Vmax: 0.51 m/s (0.6-0.9m/s) PV Max Thaddeus: 1.1 m/s (0.6-0.9m/s) PV Max P.7 mmHg PV Mean P.5 mmHg PULMONARY VEINS: PulmV A Revs Dur: 91.34 msec PulmV A Revs Thaddeus: 28.43 cm/s PulmV Tenorio Thaddeus: 46.00 cm/s PulmV S/D Thaddeus: 0.98 PulmV Sys Thaddeus: 45.05 cm/s AORTA: Asc Ao Diam 2.90 cm [address] Sandoval Britton (more content not included)... [facility] MR head/brain wo/w conon MR head/brain wo/w con [facility] [place] [address] [place] [address] MRI Report Signed Patient: Denise Harley MR#: [id number] : 1990 Acct:[id number] Age/Sex: 34 / F ADM Date: 11/01/24 Loc: MR Room: Type: [facility] Attending Dr: Fabiola Alvares DO Copies to: Fabiola Alvares DO Ordering Provider: Fabiola Alvares DO Date of Service: 11/01/24 MR/MR head/brain wo/w con: R27.0 MRI the Brain with and without contrast TECHNIQUE: Multiplanar T1 and T2-weighted imaging of the brain. 20 cc of ProHance HISTORY: Ataxia. Lightheadedness. Dizziness. COMPARISON: none VENTRICLES: Unremarkable BRAIN VOLUME: Adequate volume of brain parenchyma identified. BRAIN PARENCHYMAL SIGNAL INTENSITY: Normal signal intensity of the brain parenchyma identified. BLEED: None MASS EFFECT: No mass effect DIFFUSION RESTRICTION: None GRADIENT ECHO PARENCHYMAL SIGNAL LOSS: None MIDBRAIN: The midbrain structures are unremarkable. MALLORY: Unremarkable MEDULLA: Unremarkable INTERNAL AUDITORY CANALS: Unremarkable SINUSES: Unremarkable ORBITS: Grossly unremarkable MASTOIDS: Unremarkable ENHANCEMENT: No pathologic enhancement or enhancing mass. MR/MR head/brain wo/w con IMPRESSION: No acute intracranial process. No pathologic enhancement. Impression dictated by: Dada Mon M.D.11/01/2024 10:09 PM Dictation Location: [place] [address] Transcribed By: MIGUEL 11/01/242208 Dictated By: Dada Mon DO 11/01/242203 Signed By: 11/01/242208 Normal [facility] CA tilt table teston 024 CA tilt table test [facility] [place] [address] [place] [address] Cardiology Report Signed Patient: Denise Harley MR#: [id number] 5 : 1990 Acct:[id number] Age/Sex: 33 / F ADM Date: 09/04/24 Loc: Room: Type: [facility] Attending Dr: Elli Valdivia MD Copies to: MD Liliya Douglas MD Ordering Provider: Elli Valdivia MD Date of Service: 09/04/24 CA/CA tilt table test: Syncope REFERRING PHYSICIAN: Elli Valdivia MD REASON FOR STUDY: Syncope and history of neurocardiogenic syncope. PROCEDURE: The patient underwent standard head-up tilt table test. The patient received total of 250 mL of normal saline and the patient was tilted to the upright position. She was monitored for 20 minutes. No symptoms were reported. The patient was given sublingual nitroglycerin. Following that, she demonstrated appropriate and physiologic hemodynamic response to both tilt maneuver and nitroglycerin administration. No symptoms were recreated. CONCLUSION: 1. Negative tilt table test. 2. Normal physiologic hemodynamic response to tilt maneuver and nitroglycerin administration. Transcribed By: FARSHAD 09/05/24 0632 Dictated By: Liliya Springer MD 09/04/24 1112 Signed By: 09/09/24 1343 Normal [facility] Physician [facility] NUCLEAR STRESS TESTon 2023 NUCLEAR STRESS TEST Interpreted By: Lliiya Springer and Giannuzzi Michael STUDY: MYOCARDIAL PERFUSION STRESS TEST WITH EXERCISE Performing facility: [facility], [address] [place] [address], [address], [address] Provider: Elli Valdivia MD, FACC PCP: Dr. Trever Moralez Supervising provider: Elli Valdivia MD, FACC INDICATION: Dizziness SOB; Palpitations Abnormal EKG; HISTORY: Gender: F; Age: 33 y/o ; Height: HT 170.2 cm cm; Weight: WT 102.513 kg kg. Abnormal EKG; Palpitations; Chest Pain; SOB; Syncope; Denies smoking. COMPARISON: No comparison. ACCESSION NUMBER(S): [id number] ORDERING CLINICIAN: ELLI VALDIVIA TECHNIQUE: ONE DAY protocol. Stress injection: Date:08-26-24, 33.8 mCi of Myoview IV at peak exercise. Rest injection: Date: 08-26-24, 11.5 mCi of Myoview IV at rest. Imaging was performed by gated tomographic technique. STRESS TEST DATA: Resting heart rate was 81 BPM. Resting blood pressure was 128/86 mmHg. The patient exercised using a Esa exercise protocol. 8:15 minutes exercised. 88 % of MPHR achieved for age. 10.10 METS achieved. Maximum heart rate was 164 BPM. Maximum blood pressure was 168/86 mmHg. DTS 8. TEST TERMINATED DUE TO: Fatigue FINDINGS: STRESS TEST RESULTS: Resting electrocardiogram revealed normal sinus rhythm without ST-T changes. The patient had no significant ECG changes with maximal stress. The patient did not have chest pains/symptoms during the procedure. There was a normal recovery phase. There were no significant dysrhythmias. IMAGING RESULTS: Image quality was good. Rest and stress tomographic images were reviewed and revealed normal perfusion without evidence of ischemia, myocardial infarction, or left ventricular dilatation with stress. Overall left ventricular systolic function appeared to be normal without regional wall motion abnormalities. LV ejection fraction was 67 %. TID is 0.83 and is normal. There were no evidence of attenuation artifact. IMPRESSION: Normal exercise Myoview cardiac perfusion stress test. No evidence of ischemia or myocardial infarction by perfusion imaging. Normal left ventricular systolic function, ejection fraction 67%. No exercise provoked significant ischemic ECG changes or chest pain symptoms. No previous study available for comparison. Signed by: Liliya Springer 08/27/2024 12:11 PM Dictation workstation: [id number] [facility] ECG 12 Leadon 08-08-2024 Normal sinus rhythm at 82 bpm, pattern of anterior septal myocardial infarction, no change compared to the EKG from 07/15/2024. [facility] Work Phone: Surgical Pathology Reporton 07-05-2024 Surgical Pathology Report (NOTE) Path Number: [id number] -- Diagnosis -- Bilateral ovaries, oophorectomies: -Surface fibrosis and fibrous adhesions. -Follicle cyst (1.2 cm), and some cystic follicles. Alexis Harley M.D. Electronically Signed Out rdd/07/08/2024 Clinical Information Pre-Op Diagnosis: ENDOMETRIOSIS Operative Findings: BILATERAL OVARIES Operation Performed: OOPHORECTOMY LAPAROSCOPIC kb Source of Specimen A: BILATERAL OVARIES Gross Description DENISE HARLEY, BILATERAL OVARIES Received in formalin are two focally disrupted ovaries, 3 grams and 2.5 x 1.8 x 1.6 cm and 5 grams, 3.5 x 2.5 x 1.5 cm. External surfaces are millard-yellow with a few adhesions. Sectioning reveals small unilocular cysts up to 1.2 cm that display no excrescences. Cassette summary: 1-2 sections smaller ovary, 3-4 sections larger ovary. [facility]kb2: Microscopic Description Microscopic examination performed. Processing Lab: [address] [id number] Interpretation Performed at [address] [id number] SURGICAL PATHOLOGY CONSULTATION Patient Name: DENISE HARLEY [facility] Rec: [id number] [facility] ANATOMIC PATHOLOG[facility] [address] [place] [id number] Normal [facility] Hemoglobin A1Con 06-15-2024 Glucose [Mass/Vol] 97 mg/dL Normal [facility] Comment on above: Result Comment: The ADA and AACC recommend providing the estimated average glucose result to permit better patient understanding of their HBA1c result. Performed By: #### C P, CBC #### [facility] [address] [place] [address] Senior Windows Systems Engineer: Thuan Murphy MD #### GLYHGB #### [address] [address] Senior Windows Systems Engineer: Nando Manuel MD HbA1c (Bld) [Mass fraction] 5.0 % Normal 4.0-6.0 [facility] Comment on above: Performed By: #### C P, CBC #### [facility] [address] [place] [address] Senior Windows Systems Engineer: Thuan Murphy MD #### GLYHGB #### [address] [address] Senior Windows Systems Engineer: Nando Manuel MD Lipid Profileon 06-15-2024 Cholesterol [Mass/Vol] 211 mg/dL High 0-199 [facility] Comment on above: Result Comment: Cholesterol Guidelines: <200 Desirable 200-240 Borderline >240 Undesirable Performed By: #### L IPR #### [address] [address] Senior Windows Systems Engineer: Nando Manuel MD Cholesterol in HDL [Mass/Vol] 36 mg/dL Low >40 [facility] Comment on above: Result Comment: HDL Guidelines: <40 Undesirable 40-59 Borderline >59 Desirable Performed By: #### L IPR #### [address] [address] Senior Windows Systems Engineer: Nando Manuel MD Cholesterol in LDL [Mass/Vol] 129 mg/dL High 0-100 [facility] Comment on above: Result Comment: LDL Guidelines: <100 Desirable 100-129 Near to/above Desirable 130-159 Borderline >159 Undesirable Direct (measured) LDL and calculated LDL are not interchangeable tests. Performed By: #### L IPR #### [address] [address] Senior Windows Systems Engineer: Nando Manuel MD Cholesterol in VLDL [Mass/Vol] 47 mg/dL Normal [facility] Comment on above: Performed By: #### L IPR #### [address] [address] Senior Windows Systems Engineer: Nando Manuel MD Cholesterol.total/Chol esterol in HDL [Mass ratio] 6.0 {ratio} Normal [facility] Comment on above: Performed By: #### L IPR #### [facility] [address] [place], [place] [id number] Senior Windows Systems Engineer: Nando Manuel MD Triglyceride [Mass/Vol] 235 mg/dL High <150 [facility] Comment on above: Result Comment: Triglyceride Guidelines: <150 Desirable 150-199 Borderline 200-499 High >499 Very high Based on AHA Guidelines for fasting triglyceride, July 2012. Performed By: #### L IPR #### [facility] [address] [place], [place] [phone] Senior Windows Systems Engineer: Nando Manuel MD CBCon 06-14-2024 Erythrocyte distribution width (RBC) [Ratio] 11.9 % 11.8 - 14.4 % [facility] Hematocrit (Bld) [Volume fraction] 42.1 % 36.3 - 47.1 % [facility] Hemoglobin (Bld) [Mass/Vol] 14.3 g/dL 11.9 - 15.1 g/dL [facility] MCH (RBC) [Entitic mass] 30.4 pg 25.2 - 33.5 pg [facility] MCHC (RBC) [Mass/Vol] 34.0 g/dL 28.4 - 34.8 g/dL [facility] MCV (RBC) [Entitic vol] 89.6 fL 82.6 - 102.9 fL [facility] Nucleated RBC/100 WBC (Bld) [Ratio] 0.0 % 0.0 per 100 WBC [facility] Platelet mean volume (Bld) [Entitic vol] 8.7 fL 8.1 - 13.5 fL [facility] Platelets (Bld) [#/Vol] 264 10*3/uL [facility] RBC (Bld) [#/Vol] 4.70 10*6/uL 3.95 - 5.1 1 m/uL [facility] WBC other (Bld) [#/Vol] 6.7 [facility] Erythrocyte distribution width (RBC) [Ratio] 11.9 % Normal 11.8-14.4 [facility] Comment on above: Performed By: #### C P, CBC #### [facility] [address] [place], [place] [phone] Senior Windows Systems Engineer: Thuan Murphy MD #### GLYHGB #### [address] [phone] Senior Windows Systems Engineer: Nando Manuel MD Hematocrit (Bld) [Volume fraction] 42.1 % Normal 36.3-47.1 [facility] Comment on above: Performed By: #### C P, CBC #### [facility] [address] [place] [address] Senior Windows Systems Engineer: Thuan Murphy MD #### GLYHGB #### [address] [phone] Senior Windows Systems Engineer: Nando Manuel MD Hemoglobin (Bld) [Mass/Vol] 14.3 g/dL Normal 11.9-15.1 [facility] Comment on above: Performed By: #### C P, CBC #### [facility] [address] [place], [place] [phone] Senior [employer] Systems Engineer: Thuan Murphy MD #### GLYHGB #### [address] [id number] Senior [employer] Systems Engineer: Nando Manuel MD MCH (RBC) [Entitic mass] 30.4 pg Normal 25.2-33.5 [facility] Comment on above: Performed By: #### C P, CBC #### [facility] [address] [place] [address] Senior [employer] Engineer: Thuan Murphy MD #### GLYHGB #### [address] [phone] Senior [employer] Engineer: Nando Manuel MD MCHC (RBC) [Mass/Vol] 34.0 g/dL Normal 28.4-34.8 [facility] Comment on above: Performed By: #### C P, CBC #### [facility] [address] [place], [place] [phone] Senior Windows Systems Engineer: Thuan Murphy MD #### GLYHGB #### [address] [phone] Senior [employer] Systems Engineer: Nando Manuel MD MCV (RBC) [Entitic vol] 89.6 fL Normal 82.6-102.9 [facility] Comment on above: Performed By: #### C P, CBC #### [facility] [address] [place] [phone] Senior [employer] Systems Engineer: Thuan Murphy MD #### GLYHGB #### [address] [phone] Senior Windows Systems Engineer: Nando Manuel MD NRBC Automated 0.0 per 100 WBC Normal 0.0 [facility] Comment on above: Performed By: #### C P, CBC #### [facility] [address] [place] [address] [place], [place] [phone] Senior [employer] Systems Engineer: Thuan Murphy MD #### GLYHGB #### [address] [address] Senior Windows Systems Engineer: Nando Manuel MD Platelet mean volume (Bld) [Entitic vol] 8.7 fL Normal 8.1-13.5 [facility] Comment on above: Performed By: #### C P, CBC #### [facility] [address] [place] [address] [place], [place] [phone] Senior [employer] Engineer: Thuan Murphy MD #### GLYHGB #### [address] [address] Senior Windows Systems Engineer: Nando Manuel MD Platelets (Bld) [#/Vol] 264 10*3/uL Normal 138-453 [facility] Comment on above: Performed By: #### C P, CBC #### [facility] [address] [place], [place] [phone] Senior [employer] Engineer: Thuan Murphy MD #### GLYHGB #### [place] [address] [place], [place] [phone] Senior Windows Systems Engineer: Nando Manuel MD RBC (Bld) [#/Vol] 4.70 10*6/uL Normal 3.95-5.11 [facility] Comment on above: Performed By: #### C P, CBC #### [facility] [address] [place], [place] [phone] Senior [employer] Systems Engineer: Thuan Murphy MD #### GLYHGB #### [address] [phone] Senior Windows Systems Engineer: Nando Manuel MD WBC (Bld) [#/Vol] 6.7 10*3/uL Normal 3.5-11.3 [facility] Comment on above: Performed By: #### C P, CBC #### [facility] [address] [place] [address] [place], [place] [phone] Senior Windows Systems Engineer: Thuan Murphy MD #### GLYHGB #### [address] [phone] Senior Windows Systems Engineer: Nando Manuel MD Comp Metabolic Profon 2023 Albumin [Mass/Vol] 4.4 g/dL Normal 3.5-5.2 [facility] Comment on above: Performed By: #### C P, CBC #### [facility] [address] [place] [address] [place], [place] [phone] Senior Windows Systems Engineer: Thuan Murphy MD #### GLYHGB #### [id number] [place], [place] [phone] Senior Windows Systems Engineer: Nando Manuel MD Albumin/Glob Ratio 1.6 Normal 1.0-2.5 [facility] Comment on above: Performed By: #### C P, CBC #### [facility] [address] [place], [place] [phone] Senior [employer] Systems Engineer: Thuan Murphy MD #### GLYHGB #### [facility] [address] [place] [address] Senior Windows Systems Engineer: Nando Manuel MD Alkaline Phos 102 U/L Normal 35-104 [facility] Comment on above: Performed By: #### C P, CBC #### [address] [place], [place] [phone] Senior Windows Systems Engineer: Thuan Murphy MD #### GLYHGB #### [address] [address] Senior Windows Systems Engineer: Nando Manuel MD ALT [Catalytic activity/Vol] 32 U/L Normal 10-35 [facility] Comment on above: Performed By: #### C P, CBC #### [address] [place], [place] [phone] Senior Windows Systems Engineer: Thuan Murphy MD #### GLYHGB #### [address] [address] Senior Windows Systems Engineer: Nando Manuel MD Anion gap [Moles/Vol] 10 mmol/L Normal 9-16 [facility] Comment on above: Performed By: #### C P, CBC #### [address] [place], [place] [phone] Senior Windows Systems Engineer: Thuan Murphy MD #### GLYHGB #### [address] [id number] [place] [address] Senior Windows Systems Engineer: Nando Manuel MD AST [Catalytic activity/Vol] 21 U/L Normal 10-35 [facility] Comment on above: Performed By: #### C P, CBC #### [address] [place], [place] [phone] Senior Windows Systems Engineer: Thuan Murphy MD #### GLYHGB #### [place] [id number] [place], [place] [phone] Senior Windows Systems Engineer: Nando Manuel MD Bilirubin [Mass/Vol] 0.6 mg/dL Normal 0.00-1.20 [facility] Comment on above: Performed By: #### C P, CBC #### [facility] [address] [place], [place] [phone] Senior Windows Systems Engineer: Thuan Murphy MD #### GLYHGB #### [address] [address] Senior Windows Systems Engineer: Nando Manuel MD BUN/CRE Ratio 16 Normal 9-20 [facility] Comment on above: Performed By: #### C P, CBC #### [facility] [address] [place], [place] [phone] Senior Windows Systems Engineer: Thuan Murphy MD #### GLYHGB #### [address] [address] Senior Windows Systems Engineer: Nando Manuel MD Calcium [Mass/Vol] 8.9 mg/dL Normal 8.6-10.4 [facility] Comment on above: Performed By: #### C P, CBC #### [address] [place], [place] [phone] Senior Windows Systems Engineer: Thuan Murphy MD #### GLYHGB #### [address] [address] Senior Windows Systems Engineer: Nando Manuel MD Chloride [Moles/Vol] 104 mmol/L Normal 98-107 [facility] Comment on above: Performed By: #### C P, CBC #### [facility] [address] [place], [place] [phone] Senior Windows Systems Engineer: Thuan Murphy MD #### GLYHGB #### [address] [phone] Senior Windows Systems Engineer: Nando Manuel MD CO2 [Moles/Vol] 25 mmol/L Normal 20-31 [facility] Comment on above: Performed By: #### C P, CBC #### [facility] [address] [place], [place] [phone] Senior Windows Systems Engineer: Thuan Murphy MD #### GLYHGB #### [facility] [address] [place] [address] Senior Windows Systems Engineer: Nando Manuel MD Creatinine [Mass/Vol] 0.7 mg/dL Normal 0.50-0.90 [facility] Comment on above: Performed By: #### C P, CBC #### [facility] [address] [place], [place] [phone] Senior Windows Systems Engineer: Thuan Murphy MD #### GLYHGB #### [place] [address] [place], [place] [phone] Senior Windows Systems Engineer: Nando Manuel MD GFR/1.73 sq M.predicted among non-blacks MDRD (S/P/Bld) [Vol rate/Area] mL/min/{1.73_m2} Normal >60 [facility] Comment on above: Result Comment: These results are not intended for [...] following therapy that affects renal tubular secretion. Performed By: #### C P, CBC #### [facility] [address] [place], [place] [phone] Senior Windows Systems Engineer: Thuan Murphy MD #### GLYHGB #### [facility] [address] [place], [place] [phone] Senior Windows Systems Engineer: Nando Manuel MD Glucose [Mass/Vol] 98 mg/dL Normal 74-99 [facility] Comment on above: Performed By: #### C P, CBC #### [facility] [address] [place], [place] [phone] Senior Windows Systems Engineer: Thuan Murphy MD #### GLYHGB #### [address] [address] Senior Windows Systems Engineer: Nando Manuel MD Potassium [Moles/Vol] 3.8 mmol/L Normal 3.7-5.3 [facility] Comment on above: Performed By: #### C P, CBC #### [facility] [address] [place], [place] [phone] Senior Windows Systems Engineer: Thuan Murphy MD #### GLYHGB #### [address] [address] Senior Windows Systems Engineer: Nando Manuel MD Protein [Mass/Vol] 7.2 g/dL Normal 6.6-8.7 [facility] Comment on above: Performed By: #### C P, CBC #### [facility] [address] [place] [address] [place], [place] [phone] Senior Windows Systems Engineer: Thuan Murphy MD #### GLYHGB #### [address] [address] Senior Windows Systems Engineer: Nando Manuel MD Sodium [Moles/Vol] 139 mmol/L Normal 136-145 [facility] Comment on above: Performed By: #### C P, CBC #### [facility] [address] [place], [place] [phone] Senior Windows Systems Engineer: Thuan Murphy MD #### GLYHGB #### [address] [address] Senior Windows Systems Engineer: Nando Manuel MD Urea nitrogen [Mass/Vol] 11 mg/dL Normal 6-20 [facility] Comment on above: Performed By: #### C P, CBC #### [facility] [address] [place] [address] Senior Windows Systems Engineer: Thuan Murphy MD #### GLYHGB #### [facility] [address] [place], [place] [phone] Senior Windows Systems Engineer: Nando Manuel MD [facility] Metabolic Pane [facility] 06-14-2024 Albumin [Mass/Vol] 4.4 g/dL 3.5 - 5.2 g/dL [facility] Albumin/Globulin [Mass ratio] 1.6 {ratio} 1.0 - 2.5 [facility] ALP [Catalytic activity/Vol] 102 U/L 35 - 104 U/L [facility] ALT [Catalytic activity/Vol] 32 U/L 10 - 35 U/L [facility] Anion gap [Moles/Vol] 10 mmol/L 9 - 16 mmol/L [facility] AST [Catalytic activity/Vol] 21 U/L 10 - 35 U/L [facility] Bilirubin [Mass/Vol] 0.6 mg/dL 0.00 - 1.20 mg/dL [facility] Calcium [Mass/Vol] 8.9 mg/dL 8.6 - 10. 4 mg/dL [facility] Chloride [Moles/Vol] 104 mmol/L 98 - 10 7 mmol/L [facility] CO2 [Moles/Vol] 25 mmol/L 20 - 31 mmol/L [facility] Creatinine [Mass/Vol] 0.7 mg/dL 0.50 - 0.90 mg/dL [facility] Est, Glom Filt Rate - PINF [facility] Comment on above: These results are not intended for use [...] following therapy that affects renal tubular secretion. Glucose [Mass/Vol] 98 mg/dL 74 - 99 mg/dL [facility] Potassium [Moles/Vol] 3.8 mmol/L 3.7 - 5.3 mmol/L [facility] Protein [Mass/Vol] 7.2 g/dL 6.6 - 8.7 g/dL [facility] Sodium [Moles/Vol] 139 mmol/L 136 - 145 mmol/L [facility] Urea nitrogen [Mass/Vol] 11 mg/dL 6 - 20 mg/dL [facility] Urea nitrogen/Creatinine [Mass ratio] 16 mg/mg 9 - 20 [facility] US PELVIS LIMITEDon 03-27-20 US PELVIS LIMITED UTERUS:s/p hysterectomy RT. OVARY:seen transabdominal, dominant follicle belinda- 1.1cm x 0.9cm x 0.8cm LT. OVARY:seen transabdominal, multiple follicles visualized No free fluid or adnexal masses visualized Interpreted by: Dustin Davidson, FABIÁN - Kirsten Martínez DO Signed by: Kirsten Mistry DO 03/27/24 Final result Normal [facility] CBCon 06-07-2022 Hematocrit (Bld) [Volume fraction] 42.4 % 36.3 - 47.1 % [facility] Hemoglobin (Bld) [Mass/Vol] 13.4 g/dL 11.9 - 15.1 g/dL [facility] MCH (RBC) [Entitic mass] 29.6 pg 25.2 - 33.5 pg [facility] MCHC (RBC) [Mass/Vol] 31.6 g/dL 28.4 - 34.8 g/dL [facility] MCV (RBC) [Entitic vol] 93.6 fL 82.6 - 102.9 fL [facility] NRBC Automated 0.0 0.0 per 100 WBC [facility] Platelet distribution width (Bld) [Ratio] 12.6 % 11.8 - 14.4 % [facility] Platelet mean volume (Bld) [Entitic vol] 8.6 fL 8.1 - 13.5 fL [facility] Platelets (Bld) [#/Vol] 303 10*3/uL [facility] RBC (Bld) [#/Vol] 4.53 10*6/uL 3.95 - 5.1 1 m/uL [facility] WBC (Bld) [#/Vol] 8.2 10*3/uL [facility] Comprehensive Metabolic Pane justin 06-07-2022 Albumin [Mass/Vol] 4.2 g/dL 3.5 - 5.2 g/dL [facility] Albumin/Globulin [Mass ratio] 1.4 {ratio} 1 - 2.5 [facility] ALP (Bld) [Catalytic activity/Vol] 68 U/L 35 - 104 U/L [facility] ALT [Catalytic activity/Vol] 24 U/L 5 - 33 U/L [facility] Anion gap [Moles/Vol] 12 mmol/L 9 - 17 mmol/L [facility] AST [Catalytic activity/Vol] 15 U/L NINF - 32 U/L [facility] Bilirubin [Mass/Vol] 0.32 mg/dL 0.3 - 1 .2 mg/dL [facility] Calcium [Mass/Vol] 9.1 mg/dL 8.6 - 10. 4 mg/dL [facility] Chloride [Moles/Vol] 104 mmol/L 98 - 10 7 mmol/L [facility] CO2 [Moles/Vol] 24 mmol/L 20 - 31 mmol/L [facility] Creatinine [Mass/Vol] 0.55 mg/dL 0.5 - 0.9 mg/dL [facility] Free PSA/Total PSA [Mass fraction] 7.2 g/dL 6.4 - 8.3 g/dL [facility] GFR >60 60 - PI NF mL/min [facility] GFR Non- >60 60 - PINF mL/min [facility] Glucose [Mass/Vol] 108 mg/dL High 70 - 99 mg/dL [facility] Interpretation and review of laboratory results Abnormal [facility] Potassium [Moles/Vol] 4.4 mmol/L 3.7 - 5.3 mmol/L [facility] Sodium [Moles/Vol] 140 mmol/L 135 - 144 mmol/L [facility] Urea nitrogen (BldV) [Mass/Vol] 10 mg/dL 6 - 20 mg/dL [facility] Urea nitrogen/Creatinine (Bld) [Mass ratio] 18 9 - 20 [facility] Laboratory - Chemistry and C hemistry - challengeon 06-07-2022 GFR/1.73 sq M.predicted MDRD (S/P/Bld) [Vol rate/Area] [facility] Comment on above: Average GFR for 30-3 9 years old: 107 mL/min/1.73sq m Chronic Kidney Disease: <60 mL/min/1.73sq m Kidney failure: <15 mL/min/1.73sq m eGFR calculated using average adult body mass. Additional eGFR calculator available at: http://www.[employer]/multiple_crcl_2012.htm Stage 1: Some kidney damage normal GFR Stage 2: Mild kidney damage GFR 60-89 Stage 3: Moderate kidney damage GFR 30-59 Stage 4: Severe kidney damage GFR 15-29 Stage 5: Severe kidney damage GFR <15 ESRD - chronic treatment by dialysis or transplant Lipid Panelon 06-07-2022 Cholesterol [Mass/Vol] 209 mg/dL High NINF - 200 mg/dL [facility] Comment on above: Cholesterol Guidelines: <200 Desirable 200-240 Borderline >240 Undesirable Cholesterol in HDL [Mass/Vol] 42 mg/dL 40 - PINF mg/dL [facility] Comment on above: HDL Guidelines: <40 Undesirable 40-59 Borderline >59 Desirable Cholesterol in LDL [Mass/Vol] 130 mg/dL 0 - 130 mg/dL [facility] Comment on above: LDL Guidelines: <100 Desirable 100-129 Near to/above Desirable 130-159 Borderline >159 Undesirable Direct (measured) LDL and calculated LDL are not interchangeable tests. Cholesterol.total/Chol esterol in HDL [Mass ratio] 5 {ratio} High NINF - 5 [facility] Interpretation and review of laboratory results Abnormal [facility] Triglyceride [Mass/Vol] 187 mg/dL High NINF - 150 mg/dL [facility] Comment on above: Triglyceride Guidelines: <150 Desirable 150-199 Borderline 200-499 High >499 Very high Based on AHA Guidelines for fasting triglyceride, July 2012. [employer] US BREAST LIMITED RIGHTon Negative targeted ultrasound right breast. Negative exam should not preclude the use of tissue biopsy if indicated clinically BIRADS: BIRADS - CATEGORY 1 Negative. Normal interval follow-up is recommended in 12 months. OVERALL ASSESSMENT - NEGATIVE A letter of notification will be sent to the patient regarding the results. [employer] recommends annual mammograms for women 40 years and older. [facility] EXAMINATION: TARGETED ULTRASOUND OF THE RIGHT BREAST 03/11/2022 COMPARISON: None. HISTORY: ORDERING SYSTEM PROVIDED HISTORY: Breast pain, right FINDINGS: Ultrasound 12 to 4 o'clock position right breast demonstrates no solid or cystic mass. No significant findings. [facility] Radiology Study observation (narrative) [facility] Phone: US BREAST LIMITED RIGHTOrder ed By: Maxime Smyth on 03-11-2022 [facility]: CBC AUTO DIFFon 05-07-2021 BASO # 0.0 103/ul Normal 0.0-0.1 [facility] Comment on above: Performed By: #### C BC #### [facility] [address] [place] [address] [place] Basophils/100 WBC (Bld) 0.3 % Normal 0.2-2.0 [facility] Comment on above: Performed By: #### C BC #### [facility] [address] [place], [place] [address] [place] EO # 0.2 103/ul Normal 0.0-0.7 [facility] Comment on above: Performed By: #### C BC #### [facility] [address] [place], [place] [address] [place] Eosinophils/100 WBC (Bld) 2.1 % Normal 0.9-7.0 [facility] Comment on above: Performed By: #### C BC #### [facility] [address] [place], [place] [address] Alban Gi Erythrocyte distribution width (RBC) [Ratio] 12.4 % Normal 11.0-15.0 [facility] Comment on above: Performed By: #### C BC #### [facility] [address] [place] [address] Alban Angelo Hematocrit (Bld) [Volume fraction] 43.5 % Normal 36.0-48.0 [facility] Comment on above: Performed By: #### C BC #### [facility] [address] [place] [address] Alban Angelo Hemoglobin (Bld) [Mass/Vol] 14.4 g/dL Normal 12.0-16.0 [facility] Comment on above: Performed By: #### C BC #### [facility] [address] [place] [address] Alban Angelo IG # 0.03 10e3/ul Normal 0.00-0.03 [facility] Comment on above: Performed By: #### C BC #### [facility] [address] [place] [address] Alban Angelo IG % 0.3 % Normal 0.0-0.5 [facility] Comment on above: Performed By: #### C BC #### [facility] [address] [place] [address] Alban Angelo LYMPH # 4.3 103/ul Critically high 1.2-3.8 [facility] Comment on above: Performed By: #### C BC #### [facility] [address] [place] [address] Alban Angelo Lymphocytes/100 WBC (Bld) 38.0 % Normal 20.5-60.0 [facility] Comment on above: Performed By: #### C BC #### [facility] [address] [place] [address] Alban Angelo MANUAL DIFF REQ NO Normal [facility] Comment on above: Performed By: #### C BC #### [facility] [address] [place] [address] Alban Angelo MCH (RBC) [Entitic mass] 29.5 pg Normal 26.7-34.0 [facility] Comment on above: Performed By: #### C BC #### [facility] [address] [place], [place] [address] Albanlester Angelo MCHC (RBC) [Mass/Vol] 33.1 g/dL Normal 29.9-35.2 [facility] Comment on above: Performed By: #### C BC #### [facility] [address] [place], [place] [address] Albanlester Angelo MCV (RBC) [Entitic vol] 89.1 fL Normal 81.0-99.0 [facility] Comment on above: Performed By: #### C BC #### [facility] [address] [place] [phone] Alban Gi MONO # 0.7 103/ul Normal 0.3-0.8 [facility] Comment on above: Performed By: #### C BC #### [facility] [address] [place], [place] [phone] Alban Gi Monocytes/100 WBC (Bld) 6.2 % Normal 1.7-12.0 [facility] Comment on above: Performed By: #### C BC #### [facility] [address] [place] [phone] Alban Gi NEUT # 6.0 103/ul Normal 1.4-6.5 [facility] Comment on above: Performed By: #### C BC #### [facility] [address] [place] [phone] Alban Gi Neutrophils/100 WBC (Bld) 53.1 % Normal 43.0-75.0 [facility] Comment on above: Performed By: #### C BC #### [facility] [address] [place], [place] [address] Alban Gi Platelet mean volume (Bld) [Entitic vol] 8.8 fL Critically low 9.5-13.5 [facility] Comment on above: Performed By: #### C BC #### [facility] [address] [place] [phone] Alban Gi PLT 347 103/ul Normal 150-450 [facility] Comment on above: Performed By: #### C BC #### [facility] [address] [place], [place] [address] Alban Angelo RBC 4.88 106/ul Normal 4.20-5.40 [facility] Comment on above: Performed By: #### C BC #### [facility] [address] [place], [place] [address] Alban Angelo WBC 11.3 103/ul Critically high 4.0-11.0 [facility] Comment on above: Performed By: #### C BC #### [facility] [address] [place], [place] [address] ABD/PELVIS WO CONon 05-07 CT ABD/PELVIS WO CON EXAM: CT ABD/PELVIS WO CON 05/07/2021 12:42 AM EDT OH001 CLINICAL STATEMENT: CALCULUS OF KIDNEY COMPARISON: No prior studies are available at the time of dictation. TECHNIQUE: Helically acquired images were obtained of the abdomen and pelvis without IV contrast. No oral contrast was administered. AEC is utilized. 2-D reconstructed images are provided. FINDINGS: Fatty infiltration of the liver. Cholecystectomy. There are no radiopaque renal or ureteric calculi. There is no hydronephrosis or hydroureter. The upper abdominal solid organs are unremarkable. There is no bowel obstruction or free air. There is no ascites. There is no evidence of aortic aneurysm. There is no retroperitoneal adenopathy. There is no appendicitis or diverticulitis. There are no pelvic masses or loculated fluid collections. The lung bases are clear. There are no destructive bone lesions identified. IMPRESSION: Fatty infiltration of the liver. No radiopaque renal or ureteric calculi. No hydronephrosis or hydroureter. FOLLOW-UP: Follow-up as clinically indicated. Electronically authenticated by: HEAVEN REED Date: 2021-05-07 02:07 Normal [facility] CULTURE URINEon 05-07-2021 CULTURE URINE Culture Observations: LIGHT GROWTH OF MIXED GENITAL KRISTIE. NO POTENTIAL PATHOGENS SEEN. Normal [facility] Comment on above: Performed By: #### U RCX #### [facility] [address] [place], [place] [address] Alban Angelo ER URINE PROFILEon Bilirubin Ql (U) Negative Normal NEGATIVE [facility] Comment on above: Performed By: #### P REGU ERUR UMICRO #### [facility] [address] [place] [address] [place] Gi Clarity (U) CLEAR Normal CLEAR [facility] Comment on above: Performed By: #### P REGU, ERUR, UMICRO #### [facility] [address] [place] [address] Alban Gi Color (U) LT. YELLOW Normal YELLOW [facility] Comment on above: Performed By: #### P REGU ERUR UMICRO #### [facility] [address] [place] [address] Alban Gi ERUAHD A micrscopic examination will be performed if indicated. Normal [facility] Comment on above: Performed By: #### P REGNicole ERUR UMICRO #### [facility] [address] [place] [address] Alban Gi Glucose Ql (U) Negative Normal NEGATIVE [facility] Comment on above: Performed By: #### P REGU ERUR UMICRO #### [facility] [address] [place] [address] Alban Gi Hemoglobin Ql (U) SMALL Abnormal NEGATIVE [facility] Comment on above: Performed By: #### P REGU ERUR, UMICRO #### [facility] [address] [address] Alban Gi Ketones Ql (U) 15 mg/dl Abnormal NEGATIVE [facility] Comment on above: Performed By: #### P REGU ERUR, UMICRO #### [facility] [address] [place] [address] Alban Gi LEUKOCYTES Negative Normal NEGATIVE [facility] Comment on above: Performed By: #### P REGU ERUR UMICRO #### [facility] [address] [place] [address] Alban Gi Nitrite Ql (U) Negative Normal NEGATIVE [facility] Comment on above: Performed By: #### P REGU ERUR UMICRO #### [facility] [address] [place] [address] Alban Angelo pH (U) 6.0 [pH] Normal 5-9 [facility] Comment on above: Performed By: #### P CLAUDIA LY UMICRO #### [facility] [address] [place] [address] Alban Angelo SPEC GRAVITY 1.025 Normal 1.005-<=1.02 5 [facility] Comment on above: Performed By: #### P CLAUDIA LY UMICRO #### [facility] [address] [place] [address] Alban Angelo UA PROTEIN Negative Normal NEGATIVE/ TRACE [facility] Comment on above: Performed By: #### CLAUDIA GROSSMAN UMICRO #### [facility] [address] [place] [address] Alban Angelo UR MICRO IND INDICATED Normal [facility] Comment on above: Performed By: #### P CLAUDIA LY UMICRO #### [facility] [address] [place] [address] Alban Angelo Urobilinogen Qn (U) 0.2 {Kaylee'U}/dL Normal 0.2 - 1. 0 [facility] Comment on above: Performed By: #### P CLAUDIA LY UMICRO #### [facility] [address] [place] [address] Alban Angelo LACTATE/LACTIC ACIDon 2020 Lactate [Moles/Vol] 1.5 mmol/L Normal 0.7-2.0 [facility] Comment on above: Performed By: #### L ACT #### [facility] [address] [place], [place] [phone] Albanlester Angelo URon 05-07-2021 , QUAL Negative Normal NEGATIVE [facility] Comment on above: Performed By: #### P CLAUDIA LY UMICRO #### [facility] [address] [place] [address] Alban Angelo PROF 14(COMP METB)on 021 Albumin [Mass/Vol] 3.8 g/dL Normal 3.5-5.0 [facility] Comment on above: Performed By: #### C MP #### [facility] [address] [place] [id number] Alban Gi Albumin/Globulin [Mass ratio] 0.9 {ratio} Normal [facility] Comment on above: Performed By: #### C MP #### [facility] [address] [id number] Alban Gi ALP [Catalytic activity/Vol] 66 U/L Normal 38-126 [facility] Comment on above: Performed By: #### C MP #### [facility] [address] [place], [place] [id number] Alban Gi ALT [Catalytic activity/Vol] 27 U/L Normal 9-52 [facility] Comment on above: Performed By: #### C MP #### [facility] [address] [place], [place] [phone] Alban Gi Anion gap [Moles/Vol] 16.3 mmol/L Normal [facility] Comment on above: Performed By: #### C MP #### [facility] [address] [place], [place] [id number] Alban Gi AST [Catalytic activity/Vol] 19 U/L Normal 14-36 [facility] Comment on above: Performed By: #### C MP #### [facility] [address] [place], [place] [phone] Alban Gi Bilirubin [Mass/Vol] 0.6 mg/dL Normal 0.2-1.3 [facility] Comment on above: Performed By: #### C MP #### [facility] [address] [place], [place] [phone] Alban Gi Calcium [Mass/Vol] 9.5 mg/dL Normal 8.4-10.2 The [facility] Comment on above: Performed By: #### C MP #### [facility] [address] [place], [place] [phone] Alban Gi Chloride [Moles/Vol] 103 mmol/L Normal 98-107 [facility] Comment on above: Performed By: #### C MP #### [facility] [address] [id number] Alban Gi CO2 [Moles/Vol] 22.2 mmol/L Normal 22.0-30.0 The [facility] Comment on above: Performed By: #### C MP #### [facility] [address] [phone] Alban Gi Creatinine [Mass/Vol] 0.80 mg/dL Normal 0.52-1.04 [facility] Comment on above: Performed By: #### C MP #### [facility] [address] [phone] Alban Gi EGFR-AF ARMENIAN >60 Normal >=60 The [facility] Comment on above: Performed By: #### C MP #### [facility] [address] [address] Alban Gi EGFR-NON AF ARMENIAN >60 Normal >=60 [facility] Comment on above: Performed By: #### C MP #### [facility] [address] [phone] Alban Gi Globulin (S) [Mass/Vol] 4.4 g/dL Normal [facility] Comment on above: Performed By: #### C MP #### [facility] [address] [phone] Alban Gi Glucose [Mass/Vol] 111 mg/dL Critically high 74-106 T [facility] Comment on above: Performed By: #### C MP #### [facility] [address] [address] Alban Gi Potassium [Moles/Vol] 3.5 mmol/L Normal 3.4-5.0 [facility] Comment on above: Performed By: #### C MP #### [facility] [address] [place], [place] [phone] Alban Gi Protein [Mass/Vol] 8.2 g/dL Normal 6.1-8.2 [facility] Comment on above: Performed By: #### C MP #### [facility] [address] [phone] Alban Gi Sodium [Moles/Vol] 138 mmol/L Normal 137-145 [facility] Comment on above: Performed By: #### C MP #### [facility] [address] [place] [address] Alban Gi Urea nitrogen [Mass/Vol] 16.0 mg/dL Normal 7.0-17.0 [facility] Comment on above: Performed By: #### C MP #### [facility] [address] [address] Alban Gi Urea nitrogen/Creatinine [Mass ratio] 20.0 mg/mg Normal [facility] Comment on above: Performed By: #### C MP #### [facility] [address] [place] [address] Alban Gi URINE MICROSCOPIC ONLYon BACTERIA SMALL Abnormal NONE SEEN [facility] Comment on above: Performed By: #### P REGU, ERUR, UMICRO #### [facility] [address] [place] [address] Alban Gi Bacteria identified Cx Nom (U) INDICATED Normal [facility] Comment on above: Performed By: #### P REGU, ERUR, UMICRO #### [facility] [address] [place] [address] Alban Gi CAST NONE SEEN Normal NONE SEEN [facility] Comment on above: Performed By: #### P REGU, ERUR, UMICRO #### [facility] [address] [place] [address] Alban Gi Crystals LM Nom (Urine sed) NONE SEEN Normal NONE SEEN [facility] Comment on above: Performed By: #### P REGU, ERUR, UMICRO #### [facility] [address] [place] [address] Alban Gi Epithelial cells LM Ql (Urine sed) RARE Normal NONE SEEN /RARE [facility] Comment on above: Performed By: #### P REGU, ERUR, UMICRO #### [facility] [address] [place] [address] Alban Gi MUCOUS NONE SEEN Normal NONE SEEN [facility] Comment on above: Performed By: #### P REGU, ERUR, UMICRO #### [facility] [address] [place], [place] [address] Alban Angelo RBC 0-2 Normal 0-2 [facility] Comment on above: Performed By: #### CLAUDIA GROSSMAN UMICRO #### [facility] [address] [place], [place] [address] Alban Angelo WBC 2-5 Abnormal NONE SEEN [facility] Comment on above: Performed By: #### CLAUDIA GROSSMAN, LUCINDARO #### [facility] [address] [place], [place] [address] Alban Angelo Urinalysis With MicroscopicO rdered By: Dustin Davidson on 04-22-2021 - [facility] Work Phone: Amorphous, UA 1+ Abnormal None [facility] Work Phone: Bacteria, UA 2+ Abnormal None [facility] Work Phone: Bilirubin Urine Negative NEGATIVE [facility] Work Phone: Casts UA NOT REPORTED /LPF [facility] Work Phone: Color, UA YELLOW YELLOW [facility] Work Phone: Crystals, UA NOT REPORTED None /HPF [facility] Work Phone: Epithelial Cells UA 2 TO 5 [facility] Work Phone: Glucose, Ur Negative NEGATIVE [facility] Work Phone: Interpretation and review of laboratory results Abnormal [facility] Work Phone: Ketones Ql (U) Negative NEGATIVE [facility] Work Phone: Leukocyte esterase Test strip Ql (U) Negative NEGATIVE [facility] Work Phone: Mucus, UA 1+ Abnormal None [facility] Work Phone: Nitrite, Urine Negative NEGATIVE [facility] Work Phone: Other Observations UA NOT REPORTED NOT REQ. [facility] Work Phone: pH, UA 6.0 [facility] [employer] Work Phone: Protein, UA TRACE Abnormal NEGATIVE [facility] [employer] Work Phone: RBC, UA 0 TO 2 [facility] [employer] Work Phone: Renal Epithelial, UA NOT REPORTED 0 /HPF [facility] [employer] Work Phone: Specific [place], UA 1.025 [facility] [employer] Work Phone: Trichomonas, UA NOT REPORTED None [facility] Work Phone: Turbidity UA CLEAR CLEAR [facility] [employer] Work Phone: Urinalysis Comments NOT REPORTED [facility] [employer] Work Phone: Urine Hgb TRACE Abnormal NEGATIVE [facility] [employer] Work Phone: Urobilinogen, Urine Normal Normal [facility] [employer] Work Phone: WBC, UA None [facility] [employer] Work Phone: Yeast, UA NOT REPORTED None [facility] [employer] Work Phone: [facility] [employer] Work Phone: Microscopic UrinalysisOrdere d By: Fabiola Moralez on 08-01-2019 - [facility]- [place], [place] Amorphous, UA NOT REPORTED None [facility] [place] [place] Bacteria, UA NOT REPORTED None [facility] [place] Casts UA NOT REPORTED /LPF [facility] [place] Crystals UA NOT REPORTED None /HPF [facility] [place] [place] Epithelial Cells UA 2 TO 5 [facility] [place] Mucus, UA NOT REPORTED None [facility] [place] Other Observations UA NOT REPORTED NOT REQ. [facility] [place] RBC, UA None [facility] [place] Renal Epithelial, Urine NOT REPORTED 0 /HPF [facility] [place] Trichomonas, UA NOT REPORTED None [facility] [place] WBC, UA 0 TO 2 [facility] [place] Yeast, UA NOT REPORTED None [facility] [place] Urinalysis Reflex to Culture Ordered By: Fabiola Moralez on 08-01-2019 Bilirubin Urine Negative NEGATIVE [facility] [place] Color, UA YELLOW YELLOW [facility] [place] Glucose, Ur Negative NEGATIVE [facility] [place] Ketones Ql (U) Negative NEGATIVE [facility] [place] Leukocyte esterase Test strip Ql (U) Negative NEGATIVE [facility] [place] Nitrite, Urine Negative NEGATIVE [facility] [place] pH, UA 7.5 [facility] [place] Protein, UA Negative NEGATIVE [facility] [place] Specific [place], UA 1.020 [facility] [place] Turbidity UA CLEAR CLEAR [facility] [place] Urinalysis Comments NOT REPORTED [facility] [place] Urine Hgb Negative NEGATIVE [facility]- [place] Urobilinogen, Urine Normal Normal [facility] [place] Vital Signs Date Time Vital Sign Value Performing Clinician Facility 04-02-2025 11:23-0400 Body height 167.6 cm Ayleen Clark MD Work Phone: [facility] 04-02-2025 11:23-0400 Body mass index (BMI) [Ratio] 37.93 kg/m2 Ayleen Clark MD Work Phone: [facility] 04-02-2025 11:23-0400 Body weight 106.59 kg Ayleen Clark MD Work Phone: [facility] 04-02-2025 11:23-0400 Diastolic blood pressure 73 mm[Hg] Ayleen Clark MD Work Phone: [facility] 04-02-2025 11:23-0400 Heart rate 74 /min Ayleen Clark MD Work Phone: [facility] 04-02-2025 11:23-0400 Systolic blood pressure 113 mm[Hg] Ayleen Clark MD Work Phone: [facility] 03-12-2025 13:23-0400 Body height 167.6 cm Ayleen Clark MD Work Phone: [facility] 03-12-2025 13:23-0400 Body mass index (BMI) [Ratio] 37.93 kg/m2 Ayleen Clark MD Work Phone: [facility] 03-12-2025 13:23-0400 Body weight 106.59 kg Ayleen Clark MD Work Phone: [facility] 03-12-2025 13:23-0400 Diastolic blood pressure 77 mm[Hg] Ayleen Clark MD Work Phone: [facility] 03-12-2025 13:23-0400 Heart rate 64 /min Ayleen Clark MD Work Phone: [facility] 03-12-2025 13:23-0400 Systolic blood pressure 111 mm[Hg] Ayleen Clark MD Work Phone: [facility] 01-09-2025 09:22-0400 Diastolic blood pressure 70 mm[Hg] Elli Valdivia MD Work Phone: [facility] 01-09-2025 09:22-0400 Systolic blood pressure 110 mm[Hg] Elli Valdivia MD Work Phone: [facility] 01-09-2025 09:21-0400 Body height 170.2 cm Elli Valdivia MD Work Phone: [facility] 01-09-2025 09:21-0400 Body mass index (BMI) [Ratio] 37.43 kg/m2 Elli Valdivia MD Work Phone: [facility] 01-09-2025 09:21-0400 Body weight 108.41 kg Elli Valdivia MD Work Phone: [facility] 01-09-2025 09:21-0400 Heart rate 72 /min Elli Valdivia MD Work Phone: [facility] 10-23-2024 13:51-0500 Body mass index (BMI) [Ratio] 35.58 kg/m2 Fabiola Alvares DO Work Phone: [facility] 10-23-2024 13:51-0500 Body weight 106.14 kg Christopher Dia DO Work Phone: [facility] 10-23-2024 13:51-0500 Diastolic blood pressure 88 mm[Hg] Christopher Dia DO Work Phone: [facility] Comment on above: Orthostatic vitals- laying- 123/82 HR 64 , sitting- 135/89 HR 69, standing- 127/95 HR 77 10-23-2024 13:51-0500 Heart rate 67 /min Christopher Dia DO Work Phone: [facility] 10-23-2024 13:51-0500 SaO2% (BldA) [Mass fraction] 100 % Christopher Dia DO Work Phone: [facility] 10-23-2024 13:51-0500 Systolic blood pressure 138 mm[Hg] Christopher Dia DO Work Phone: [facility] Comment on above: Orthostatic vitals- laying- 123/82 HR 64 , sitting- 135/89 HR 69, standing- 127/95 HR 77 09-19-2024 14:23-0500 Diastolic blood pressure 82 mm[Hg] Elli Valdivia MD Work Phone: [facility] 09-19-2024 14:23-0500 Systolic blood pressure 132 mm[Hg] Elli Valdivia MD Work Phone: [facility] 09-19-2024 13:35-0500 Body height 170.2 cm Elli Valdivia MD Work Phone: [facility] 09-19-2024 13:35-0500 Body mass index (BMI) [Ratio] 36.02 kg/m2 Elli Valdivia MD Work Phone: [facility] 09-19-2024 13:35-0500 Body weight 104.33 kg Elli Valdivia MD Work Phone: [facility] 09-19-2024 13:35-0500 Heart rate 80 /min Elli Valdivia MD Work Phone: [facility] 09-12-2024 09:34-0500 Body mass index (BMI) [Ratio] 34.97 kg/m2 Elvia Kendall MD Work Phone: [facility] 09-12-2024 09:34-0500 Body weight 104.33 kg Elvia Kendall MD Work Phone: [facility] 08-26-2024 09:39-0500 Diastolic blood pressure 86 mm[Hg] Kasey 1 [facility] 08-26-2024 09:39-0500 Heart rate 81 /min Kasey [address] [place] [address] 08-26-2024 09:39-0500 Systolic blood pressure 128 mm[Hg] Kasey [address] [place] [address] 08-08-2024 09:15-0400 Diastolic blood pressure 98 mm[Hg] Elli Valdivia MD Work Phone: [facility] 08-08-2024 09:15-0400 Systolic blood pressure 128 mm[Hg] Elli Valdivia MD Work Phone: [facility] 08-08-2024 09:13-0400 Body height 170.2 cm Elli Valdivia MD Work Phone: [facility] 08-08-2024 09:13-0400 Body mass index (BMI) [Ratio] 35.4 kg/m2 Elli Valdivia MD Work Phone: [facility] 08-08-2024 09:13-0400 Body weight 102.51 kg Elli Valdivia MD Work Phone: [facility] 08-08-2024 09:13-0400 Heart rate 82 /min Elli Valdivia MD Work Phone: [facility] 07-05-2024 11:45-0400 Diastolic blood pressure 88 mm[Hg] Kirsten Burns DO Work Phone: [facility] 07-05-2024 11:45-0400 Heart rate 87 /min Kirsten Bunrs DO Work Phone: [facility] 07-05-2024 11:45-0400 Respiratory rate 18 /min Kirsten Smithg DO Work Phone: [facility] 07-05-2024 11:45-0400 SaO2% (BldA) [Mass fraction] 94 % Kirsten Smithg DO Work Phone: [facility] 07-05-2024 11:45-0400 Systolic blood pressure 138 mm[Hg] Kirstendelmis Smithg DO Work Phone: [facility] 07-05-2024 11:00-0400 Body temperature 97.11 [degF] Kirsten Smithg DO Work Phone: [facility] 07-05-2024 07:18-0400 Body height 170.2 cm Kirsten Smithg DO Work Phone: [facility] 07-05-2024 07:18-0400 Body mass index (BMI) [Ratio] 34.9 kg/m2 Kirsten Burns DO Work Phone: [facility] [employer] 07-05-2024 07:18-0400 Body weight 101.06 kg Kirsten Smithg DO Work Phone: [facility] 07-15-2022 10:30-0400 Diastolic blood pressure 77 mm[Hg] Kirsten Smithg DO Work Phone: [facility] 07-15-2022 10:30-0400 Heart rate 86 /min Kirstendelmis Smithg DO Work Phone: [facility] [employer] 07-15-2022 10:30-0400 Respiratory rate 18 /min Kirsten Smithg DO Work Phone: [facility] [employer] 07-15-2022 10:30-0400 SaO2% (BldA) [Mass fraction] 96 % Kirsten Smithg DO Work Phone: [employer] 07-15-2022 10:30-0400 Systolic blood pressure 142 mm[Hg] Kirsten Burns DO Work Phone: [employer] 07-15-2022 09:45-0400 Body temperature 96.91 [degF] Kirsten Smithg DO Work Phone: [employer] 07-15-2022 07:19-0400 Body height 170.2 cm Kirsten Burns DO Work Phone: [employer] 07-15-2022 07:19-0400 Body mass index (BMI) [Ratio] 37.12 kg/m2 Kirsten Burns DO Work Phone: [employer] 07-15-2022 07:19-0400 Body weight 107.5 kg Kirsten Burns DO Work Phone: [employer] Encounters Encounter Date Encounter Type Care Provider Facility Start: 04-09-2025 End: 04-09-2025 ambulatory [facility] Start: 04-09-2025 End: 04-09-2025 Subsequent hospital visit by physician Mariola Cardenas CNP Work [facility] Comment on above: Decreased urine outp ut Start: 04-02-2025 End: 04-02-2025 Bamboo flowsheet Ayleen Clark MD Work Phone: [facility] Start: 04-02-2025 End: 04-02-2025 Bamboo flowsheet Ayleen Clark MD Work Phone: [facility] Start: 04-02-2025 End: 04-02-2025 Office outpatient visit 25 minutes Ayleen Clark MD Work Phone: [facility] Comment on above: Dizziness (Primary D x) Start: 04-02-2025 End: 04-02-2025 ambulatory AYLEEN CLARK Not Available Start: 03-26-2025 End: 03-26-2025 ambulatory Fabiola Moralez Facility:[facility] Start: 03-12-2025 End: 03-12-2025 Office outpatient new 45 minutes Ayleen Clark MD Work Phone: [facility] Comment on above: Dizziness and giddin ess (Primary Dx); Bilateral impacted cerumen; VBI (vertebrobasilar insufficiency) Start: 03-12-2025 End: 03-12-2025 ambulatory AYLEEN CLARK Not Available Start: 03-10-2025 End: 03-10-2025 Clinical Support Melvi Wick [facility] Work Phone: [facility] Comment on above: Dizziness (Primary D x) Start: 01-31-2025 End: 02-02-2025 ambulatory [facility] Start: 01-31-2025 End: 02-02-2025 Subsequent hospital visit by physician [facility] Ultrasound Room 2 At [facility] Comment on above: Decreased urine outp ut Start: 01-22-2025 End: 01-22-2025 ambulatory MARIOLA CHARI [facility] Start: 01-22-2025 End: 01-22-2025 Subsequent hospital visit by physician Mariola Marcelino APRN - ADMINISTRATION VICE PRESIDENT Work Phone: [facility] Comment on above: Decreased urine outp ut; Dizziness Start: 01-10-2025 End: 01-10-2025 ambulatory [facility] Start: 01-10-2025 End: 01-10-2025 Subsequent hospital visit by physician Fabiola Moralez MD Work Phone: [facility] Comment on above: Abdominal pain, unsp ecified abdominal location Start: 01-09-2025 End: 01-09-2025 Office outpatient visit 15 minutes Elli Valdivia MD Work Phone: [facility] Comment on above: Encounter to discuss test results; Syncope and collapse; Dizziness; Other chest pain; Palpitations; Shortness of breath; Mixed hyperlipidemia; Never smoked tobacco; Body mass index (BMI) of 37.0 to 37.9 in adult Start: 01-09-2025 End: 01-09-2025 ambulatory [facility] Start: 12-31-2024 End: 12-31-2024 ambulatory FABIOLA ALVARES Not Available Start: 12-30-2024 End: 12-30-2024 Subsequent hospital visit by physician Kasey Herman Echo/Vasc Room 2 [facility] Comment on above: Shortness of breath; Syncope and collapse Start: 12-30-2024 End: 12-30-2024 ambulatory [facility] Start: 11-01-2024 End: 11-01-2024 ambulatory Fabiola Alvares Facility:[facility] Start: 10-31-2024 End: 10-31-2024 ambulatory FABIOLA ALVARES Not Available Start: 10-23-2024 End: 10-23-2024 Office outpatient new 45 minutes Fabiola Alvares DO Work Phone: [facility] Comment on above: Ataxia (Primary Dx); Syncope, unspecified syncope type; Chronic migraine without aura without status migrainosus, not intractable ([facility]) Start: 10-23-2024 End: 10-23-2024 ambulatory FABIOLA ALVARES Not Available Start: 09-19-2024 End: 09-19-2024 Office outpatient visit 25 minutes Elli Valdivia MD Work Phone: [facility] Comment on above: Other chest pain; Syncope and collapse; Palpitations; Shortness of breath; Dizziness; BMI 36.0-36.9,adult; Never smoked tobacco; Family history of syncope Start: 09-19-2024 End: 09-19-2024 ambulatory [facility] Start: 09-12-2024 End: 09-12-2024 Jon Kendall MD Work Phone: [facility] Start: 09-12-2024 End: 09-12-2024 Jon Kendall MD Work Phone: [facility] Start: 09-12-2024 End: 09-12-2024 Office outpatient visit 25 minutes Elvia Kendall MD Work Phone: [facility] Comment on above: Asthma, allergic, mi ld intermittent, uncomplicated (CMS/HCC) (Primary Dx); Vasomotor rhinitis; Chronic rhinitis; Mild intermittent asthma without complication (CMS/HCC) Start: 09-12-2024 End: 09-12-2024 ambulatory ELVIA KENDALL Not Available Start: 09-04-2024 End: 09-04-2024 ambulatory [facility] Facility:[facility] Start: 08-26-2024 End: 08-26-2024 Subsequent hospital visit by physician Kasey Parrish [place] 1 [facility] Comment on above: Dizziness; Shortness of breath; Palpitations; Abnormal EKG; Syncope and collapse Start: 08-26-2024 End: 08-26-2024 ambulatory [facility] Start: 08-13-2024 End: 08-13-2024 ambulatory [facility] Ambulatory Start: 08-08-2024 End: 08-08-2024 Office consultation new/estab patient 60 min Elli Valdivia MD Work Phone: [facility] Comment on above: Chest pressure (Prim hannah Dx); Syncope and collapse; Palpitations; BMI 35.0-35.9,adult; Never smoked tobacco; Dizziness; Shortness of breath; Abnormal EKG; Elevated triglycerides with high cholesterol Start: 08-08-2024 End: 08-08-2024 ambulatory [facility] Amb[facility] Start: 07-05-2024 End: 07-05-2024 [facility] Start: 07-05-2024 End: 07-05-2024 Subsequent hospital visit by physician Kirsten Burns DO Work Phone: [facility] Comment on above: Postoperative pain ( Primary Dx); Endometriosis Start: 06-14-2024 End: 06-14-2024 ambulatory MARIOLA MARCELINO [facility] Start: 06-14-2024 Encounter for genera l adult medical examination without abnormal findings [facility] Start: 06-14-2024 End: 06-14-2024 Patient encounter status Fabiola Moralez MD Work Phone: [facility] Start: 06-14-2024 End: 06-14-2024 Subsequent hospital visit by physician Fabiola Moralez MD Work Phone: [facility] Laboratory Comment on above: Impaired fasting glu cose; Routine general medical examination at a health care facility; Elevated cholesterol with high triglycerides Start: 05-13-2024 End: 05-13-2024 ambulatory [facility] Start: 05-13-2024 End: 05-13-2024 Encounter for general adult medical examination without abnormal findings [facility] Start: 03-20-2024 End: 03-20-2024 [facility] Start: 07-15-2022 End: 07-15-2022 Subsequent hospital visit by physician Kirsten Burns DO Work Phone: [facility] Comment on above: Post-op pain (Primar y Dx) Start: 06-07-2022 End: 06-07-2022 Patient encounter status Fabiola Moralez MD Work Phone: [facility] Start: 06-07-2022 End: 06-07-2022 Subsequent hospital visit by physician Fabiola Moralez MD Work Phone: [facility] Comment on above: Routine general medi leilani examination at a health care facility Start: 03-11-2022 End: 03-13-2022 Subsequent hospital visit by physician Brandan Ultrasound Room [facility] Comment on above: Breast pain, right Start: 05-07-2021 End: 05-07-[address] [facility]ER Facility:[facility] Start: 04-22-2021 End: 04-22-2021 Subsequent hospital visit by physician Fabiola Moralez MD Work Phone: [facility] Comment on above: Pelvic pain Start: 08-01-2019 End: 08-01-2019 Subsequent hospital visit by physician Fabiola Moralez MD Work Phone: [facility] Comment on above: Urinary frequency; Urinary urgency Procedures Date Procedure Procedure Detail Performing Clinician Start: 04-09-2025 Basic metabolic pane l calcium total Jonathon Andre MD Work Phone: Start: 04-09-2025 Urnls dip stick/tabl et rgnt auto w/o microscopy Jonathon Andre MD Work Phone: Start: 03-10-2025 AUDITORY FUNCTION TESTS Melvi Wick [facility] Work Phone: Start: 01-31-2025 Us retroperitoneal r eal time w/image complete Mariolariver Marcelino [employer] - ADMINISTRATION VICE PRESIDENT Work Phone: Start: 01-22-2025 Basic metabolic pane l calcium total Mariolariver Marcelino [employer] - ADMINISTRATION VICE PRESIDENT Work Phone: Start: 01-22-2025 VITAMIN B12 & FOLATE Ra panfilo Chari [employer] - ADMINISTRATION VICE PRESIDENT Work Phone: Start: 01-10-2025 Urnls dip stick/tabl et rgnt auto w/o microscopy Dustin Davidson APRN - [facility] Work Phone: Start: 08-08-2024 Ecg routine ecg w/le ast 12 lds w/i&r Elli Valdivia MD Work Phone: Start: 06-14-2024 Comprehensive metabo lic panel Mariola Marcelino [employer] - [facility] Work Phone: Start: 06-07-2022 Lipid panel Gilberto Moralez MD Work Phone: Start: 06-07-2022 Comprehensive metabo lic panel Fabiola Moralez MD Work Phone: Start: 03-11-2022 Us breast uni real t ari with image limited Dustin Davidson APRN - CN Work Phone: Start: 03-03-2022 Microscopic observat ion [Identifier] in Cervix by Cyto stain Fabiola Moralez MD Work Phone: Start: 04-22-2021 Urnls dip stick/tabl et reagent auto microscopy Dustin Davidson APRN - CNM Work Phone: Start: 08-01-2019 Urinalysis microscopic only Fabiola Moralez MD Work Phone: Start: 08-01-2019 Urnls dip stick/tabl et rgnt auto w/o microscopy Fabiola Moralez MD Work Phone: Start: 06-05-2019 Microscopic observat ion [Identifier] in Cervix by Cyto stain [facility] Room Plan of Treatment Date Care Activity Detail Author Start: 2039 Zoster Vaccines (1 o f 2) Zoster Vaccines (1 of 2) [facility] Start: 05-16-2037 DTaP/Tdap/Td vaccine (1 - Tdap) DTaP/Tdap/Td vaccine (1 - Tdap) [facility] [employer] Comment on above: Postponed from 09/27 (Patient Refused) Start: 05-16-2037 Influenza vaccination B ON [employer] Comment on above: Postponed from 06/09 (Patient Refused) Postponed from 06/09 (Patient Refused) Postponed from 06/09 (Patient Refused) Postponed from 05/09 (Patient Refused) Postponed from 05/09 (Patient Refused) Postponed from 05/09 (Patient Refused) Start: 10-09-2034 Pneumococcal 0-49 years Vaccine (1 of 2 - PCV) Pneumococcal 0-49 years Vaccine (1 of 2 - PCV) [facility] Comment on above: Postponed from 09/27 (Not Indicated) Start: 10-09-2034 Pneumococcal 0-64 years Vaccine (1 of 2 - PCV) Pneumococcal 0-64 years Vaccine (1 of 2 - PCV) [facility] Comment on above: Postponed from 09/27 (Not Indicated) Start: 03-03-2027 Screening for malignant neoplasm of cervix [facility] Start: 03-10-2026 End: 03-10-2026 Patient encounter procedure 03/10/2026 1:15 PM EDT Office Visit [facility] [place] [address] Dustin Davidson, [employer] - [place] [address] [place] [address] [address] [place], [place] [id number] yearly [facility] Comment on above: yearly Start: 01-22-2026 Depression Screen Depression Screen [facility] Start: 12-11-2025 Depression Screen Depression Screen [facility] Start: 09-15-2025 End: 09-15-2025 Patient encounter procedure 09/15/2025 9:20 AM EST Office Visit [facility] [address] [place] [phone] Elvia Kendall MD [address] [place] [address] [facility] Start: 07-29-2025 End: 07-29-2025 Patient encounter procedure 07/29/2025 12:40 PM EDT Office Visit [facility] [address] [place] [address] Jonathon Andre MD [address] [place] [phone] 4 month follow up; decreased urine output; labs [facility] Comment on above: 4 month follow up; d ecreased urine output; labs Start: 07-14-2025 End: 07-14-2025 Patient encounter procedure 07/14/2025 9:45 AM EDT Office Visit [facility] [address] [facility] [address] [place] [phone] Elli Valdivia MD 9[address] [facility] [address] [place] [address] [facility] Start: 07-03-2025 End: 07-03-2025 Patient encounter procedure 07/03/2025 1:00 PM EDT Office Visit [facility] [address] [place] [address] Dustin Davidson, [employer] - CNM [address] [facility] [facility] [address] [place] [address] 4 month med check. [facility] Part of [facility] Comment on above: 4 month med check. Start: 06-20-2025 End: 06-20-2025 Patient encounter procedure 06/20/2025 2:30 PM EDT Office Visit [facility] [address] [place] [phone] Mariola Marcelino, [employer] - ADMINISTRATION VICE PRESIDENT [address] [place] [address] annual wellness; f.u. labs Leanna Rubio Comment on above: annual wellness; f.u . labs Start: 06-19-2025 End: 06-19-2025 Patient encounter procedure 06/19/2025 2:30 PM EDT Office Visit Leanna Rubio [address] [place] [phone] Fabiola Moralez MD [address] [place] [address] annual wellness; f.u. labs Leanna Rubio Comment on above: annual wellness; f.u . labs Start: 06-18-2025 Depression Screen Depression Screen [facility] Start: 06-18-2025 Hepatitis B vaccine (1 of 3 - 19+ 3-dose series) Hepatitis B vaccine (1 of 3 - 19+ 3-dose series) [facility] Comment on above: Postponed from 09/27 (Not Indicated) Start: 06-14-2025 Diabetes mellitus screening Diabetes Screening [facility] Start: 06-09-2025 Influenza vaccination Influenz a Vaccine (Season Ended) [facility] Start: 04-02-2025 End: 04-02-2025 Patient encounter procedure 04/02/2025 11:20 AM EDT Office Visit [facility] [address] [facility] [address] [place] [address] Ayleen Clark MD [address] [facility] [address] [place] [address] Arrived [facility] Comment on above: Arrived Start: 03-12-2025 End: 03-12-2025 Patient encounter procedure 03/12/2025 1:40 PM EDT Office Visit [facility] [address] [facility] 130 [place] [address] Ayleen Clark MD [address] [facility] [address] [place] [address] [facility] Start: 03-05-2025 End: 03-05-2025 Patient encounter procedure 03/05/2025 2:15 PM EDT Office Visit [facility] [address] [place], [place] [phone] Dustin Davidson APRN - TAM[address] [place], [place] [phone] [facility] Comment on above: PAP Start: 03-03-2025 Screening for malignant neoplasm of cervix Pap smear [facility] Start: 02-11-2025 Depression Screen Depression Screen [facility] Start: 01-09-2025 End: 01-09-2025 Patient encounter procedure 01/09/2025 9:00 AM EDT Office Visit [address] [phone] Elli Valdivia MD [address] [place] [address] [address] [place] [address] [facility] Start: 11-14-2024 End: 11-14-2024 Patient encounter procedure 11/14/2024 1:45 PM EST Office Visit [address] [phone] Elli Valdivia MD 917 [facility] [address] [place] [address] [facility] Start: 10-23-2024 End: 10-23-2025 EEG, Including Recording Awake or Asleep EEG, Including Recording Awake or Asleep Neurology Routine Syncope, unspecified syncope type Expected: 10/23/2024 (Approximate), Expires: 10/23/2025 [facility] Comment on above: Expected: 10/23/2024 (Approximate), Expires: 10/23/2025 Start: 10-23-2024 End: 10-23-2025 MR Brain WO and W contrast IV MR brain w and wo contrast routine Imaging Routine Ataxia Expected: 10/23/2024, Expires: 10/23/2025 [facility] Work Phone: Comment on above: Expected: 10/23/2024 , Expires: 10/23/2025 Start: 10-22-2024 End: 10-22-2024 Patient encounter procedure 10/22/2024 9:00 AM EST Appointment [address] [phone] [facility] Start: 09-19-2024 End: 09-19-2025 MR Heart WO and W contrast IV MR cardiac morphology and function w and wo IV contrast Imaging Routine Syncope and collapse Palpitations Shortness of breath Dizziness Family history of syncope Expected: 09/19/2024 (Approximate), Expires: 09/19/2025 [facility] Service Area Work Phone: Comment on above: Expected: 09/19/2024 (Approximate), Expires: 09/19/2025 Start: 09-19-2024 End: 09-19-2024 Patient encounter procedure 09/19/2024 1:45 PM EST Office Visit [facility] [address] [facility] [address] [place] [address] Elli Valdivia MD 917 [facility] [address] [place] [address] [facility] Start: 09-12-2024 End: 09-12-2024 Patient encounter procedure 09/12/2024 9:40 AM EST Office Visit [facility] [address] [place] [phone] Elvia Kendall MD [address] [place] [address] Arrived [facility] Comment on above: Arrived Start: 08-26-2024 End: 08-26-2024 Patient encounter procedure 08/26/2024 10:15 AM EST Appointment Piero Mtahur [address] [place] [phone] Piero Mathur Start: 08-26-2024 End: 08-26-2024 Patient encounter procedure Piero Mathur Start: 08-23-2024 End: 08-23-2024 Patient encounter procedure 08/23/2024 9:45 AM EST [facility]ment [facility] Naila[address] [place] [address] Piero Mathur Start: 08-14-2024 End: 08-14-2024 Professional / ancillary services management 08/14/2024 11:00 AM EST Ancillary Procedure Kareen Yoo[address] [place] [address] [facility] Start: 08-08-2024 End: 08-08-2025 Holter monitor study Holter Or Event Butcher'S Assistant Cardiac Services Routine Palpitations Expected: 08/08/2024 (Approximate), Expires: 08/08/2025 [facility] Work Phone: Comment on above: Expected: 08/08/2024 (Approximate), Expires: 08/08/2025 Start: 08-08-2024 End: 08-08-2025 NM Heart Perfusion W stress and W radionuclide IV Nuclear Stress Test Cardiac Nuclear Medicine Routine Dizziness Shortness of breath Palpitations Abnormal EKG Syncope and collapse Expected: 08/08/2024 (Approximate), Expires: 08/08/2025 [facility] Work Phone: Comment on above: Expected: 08/08/2024 (Approximate), Expires: 08/08/2025 Start: 08-08-2024 End: 08-08-2026 Tilt table study Tilt Table Cardiac Services Routine Dizziness Shortness of breath Palpitations Abnormal EKG Syncope and collapse Expected: 08/08/2024 (Approximate), Expires: 08/08/2026 [facility] Work Phone: Comment on above: Expected: 08/08/2024 (Approximate), Expires: 08/08/2026 Start: 08-08-2024 End: 08-08-2026 US Heart Transthoracic Transthoracic Echo Complete Echocardiography Routine Dizziness Shortness of breath Palpitations Abnormal EKG Syncope and collapse Expected: 08/08/2024 (Approximate), Expires: 08/08/2026 [facility] Service Area Work Phone: Comment on above: Expected: 08/08/2024 (Approximate), Expires: 08/08/2026 Start: 07-24-2024 End: 07-24-2024 Patient encounter procedure 07/24/2024 9:45 AM EDT Office Visit [facility] Part of [address] [place] [address] Sarah Epstein PA-C [address] [place] [phone] 2 wk post-op Lap 7/ [facility] Part of [facility] Comment on above: 2 wk post-op Lap 7/2 Start: 07-09-2024 COVID-19 Vaccine ( season) COVID-19 Vaccine ( season) [facility] Comment on above: Postponed from 06/09 (Unavailable) Start: 07-05-2024 End: 07-05-2024 Admission to same day surgery center 07/05/2024 8:50 AM EDT - 07/05/2024 10:10 AM EDT Surgery [facility] [address] [place], [place] [phone] Kirsten Mistry DO [address] [place] [address] OOPHORECTOMY LAPAROSCOPIC [facility] Comment on above: OOPHORECTOMY LAPAROS COPIC Start: 07-05-2024 End: 07-05-2024 Laparoscopy w/rmvl adnexal structures [facility] Start: 07-05-2024 Subsequent hospital visit by physician 07/05/2024 8:50 AM EDT Hospital Encounter [facility] [address] [place] [address] Kirsten Mistry, DO [address] [place] [address] [facility] Start: 06-25-2024 End: 06-25-2024 Patient encounter procedure 06/25/2024 10:00 AM EDT Office Visit [facility] Part [address] [place] [address] Kirsten Mistry, DO [address] [place] [address] discuss surgery, ISAAC BA 04/09 [facility] Comment on above: discuss surgery, ISAAC BA 7/ Start: 06-18-2024 End: 06-18-2024 Patient encounter procedure 06/18/2024 1:00 PM EDT Office Visit Leanna Rubio [address] [place] [address] Mariola Marcelino APRN - GREG [address] [place] [address] wellness; f.u. labs Leanna Rubio Comment on above: wellness; f.u. labs Start: 06-09-2024 COVID-19 Vaccine () COVID-19 Vaccine () [facility] Start: 06-09-2024 COVID-19 Vaccine ( season) COVID-19 Vaccine ( season) [facility] Start: 06-09-2024 Influenza vaccination Influenza Vacc ine (#1) [facility] Start: 06-16-2023 End: 06-16-2023 Patient encounter procedure 06/16/2023 Office Visit Internal Medicine Mariola Marcelino, FABIÁN - ADMINISTRATION VICE PRESIDENT [address] [place] [address] Leanna Rubio Start: 06-14-2023 COVID-19 Vaccine (#1) COVID-19 Vacci ne (#1) [facility] Comment on above: Postponed from 03/28 (Not Indicated) Start: 06-14-2023 Depression Screen Depression [facility] Start: 06-14-2023 Pneumococcal 0-64 years Vaccine (1 - PCV) Pneumococcal 0-64 years Vaccine (1 - PCV) [facility] Comment on above: Postponed from 09/27 (Not Indicated) Start: 04-26-2023 Depression Screen Depression Screen [facility] Start: 03-14-2023 End: 03-14-2023 Patient encounter procedure 03/14/2023 Office Visit Obstetrics and Gynecology Dustin Davidson, [employer] - CN [address] [phone] [facility] Start: 09-07-2022 End: 09-07-2022 Patient encounter procedure 09/07/2022 Office Visit Obstetrics and Gynecology Sarah Epstein PA-C [address] [place] [address] [facility] Start: 08-15-2022 End: 08-15-2022 Admission to same day surgery center 08/15/2022 Surgery IP Unit Kirsten Mistry DO [address] [place] [address] LAPAROSCOPY EXPLORATORY-DIAGNOSTIC, LYSIS OF ADHESIONS, ABLATION OF ENDOMETRIOSIS [facility] Comment on above: LAPAROSCOPY EXPLORAT ORY-DIAGNOSTIC, LYSIS OF ADHESIONS, ABLATION OF ENDOMETRIOSIS Start: 08-15-2022 End: 08-15-2022 Laps fulg/exc ovary viscera/peritoneal surface LAPAROSCOPY EXPLORATORY Pelvic pain 08/15/2022 9:00 AM EST [facility] Start: 08-15-2022 Subsequent hospital visit by physician 08/15/2022 Hospital Encounter IP Unit Corky Kirsten Burns, DO [address] [place] [address] [facility] Start: 08-10-2022 End: 08-10-2022 Patient encounter procedure 08/10/2022 Office Visit Obstetrics and Gynecology Sarah Epstein PA-C [address] [place] [address] [facility] Start: 08-09-2022 End: 08-09-2022 Patient encounter procedure 08/09/2022 Office Visit Obstetrics and Gynecology Corky MuñozKirsten covarrubias Kaylie, DO [address] [place] [address] [facility] Start: 07-15-2022 End: 07-15-2022 Laps fulg/exc ovary viscera/peritoneal surface LAPAROSCOPY EXPLORATORY Pelvic pain 07/15/2022 8:12 AM EDT [facility] Start: 06-14-2022 End: 06-14-2022 Patient encounter procedure 06/14/2022 Office Visit Internal Medicine Mariola Marcelino, FABIÁN - ADMINISTRATION VICE PRESIDENT [address] [place] [address] Leanna Rubio Start: 06-05-2022 Cervical cancer screen Cervical canc er screen [facility] [place], [place] Start: 08-28-2022 Screening for malignant neoplasm of cervix [facility] Start: 03-16-2022 End: 03-16-2022 Patient encounter procedure 03/16/2022 Office Visit Obstetrics and Gynecology Dustin Davidson APRN - CNM [address] [place], [place] [phone] [facility] Start: 03-16-2022 End: 03-16-2022 Professional / ancillary services management 03/16/2022 Ancillary Procedure Obstetrics and Gynecology [facility] Start: 03-02-2022 End: 03-02-2022 Patient encounter procedure 03/02/2022 Office Visit Obstetrics and Gynecology Dustin Davidson APRN - CNM [address] [place], [place] [phone] [facility] OBST[facility]RICS GYNECOLOGY Start: 02-25-2022 Depression Screen Depression Screen [facility] Start: 08-03-2020 End: 08-03-2020 Patient encounter procedure 08/03/2020 Office Visit Internal Medicine Fabiola Moralez MD [address] [place] [address] [phone] Leanna Moralez MD [facility] Start: 06-05-2020 Pneumococcal 0-64 years Vaccine (1 of 1 - PPSV23) Pneumococcal 0-64 years Vaccine (1 of 1 - PPSV23) [place] Comment on above: Postponed from 09/27 (Insurance / Financial) Start: 2019 Screening for malignant neoplasm of cervix HPV (without or with Pap) [facility] Start: 2011 DTaP/Tdap/Td Vaccine s (1 - Tdap) DTaP/Tdap/Td Vaccines (1 - Tdap) [facility] Start: 2010 Screening for malignant neoplasm of cervix [facility] Start: 2008 Hepatitis B vaccine (1 of 3 - 19+ 3-dose series) Hepatitis B vaccine (1 of 3 - 19+ 3-dose series) [facility] Start: 2008 Hepatitis B Vaccines (1 of 3 - 19+ 3-dose series) Hepatitis B Vaccines (1 of 3 - 19+ 3-dose series) [facility] Start: 2008 Pneumococcal Vaccine : Pediatrics and At-Risk Adult Patients (1 of 2 - PCV) Pneumococcal Vaccine: Pediatrics and At-Risk Adult Patients (1 of 2 - PCV) [facility] Start: 2007 Hepatitis C screening B ON [facility] Start: 2002 Varicella vaccination Varicell a Vaccines (1 of 2 - 13+ 2-dose series) [facility] Start: 2002 Varicella Vaccine (1 of 2 - 13+ 2-dose series) Varicella Vaccine (1 of 2 - 13+ 2-dose series) [place] Start: 2001 COVID-19 Vaccine (1) COVID-19 Vaccin e (1) [facility] [employer] Phone: Start: 1995 Pneumococcal 0-64 years Vaccine (1 - PCV) Pneumococcal 0-64 years Vaccine (1 - PCV) [facility] Start: 1995 Pneumococcal 0-64 years Vaccine (1 of 2 - PPSV23) Pneumococcal 0-64 years Vaccine (1 of 2 - PPSV23) [facility] [employer] Phone: Start: 1995 Pneumococcal Vaccine : Pediatrics (0 to 5 Years) and At-Risk Patients (6 to 64 Years) (1 of 2 - PCV) Pneumococcal Vaccine: Pediatrics (0 to 5 Years) and At-Risk Patients (6 to 64 Years) (1 of 2 - PCV) [facility] Start: 1994 COVID-19 Vaccine (1) COVID-19 Vaccin e (1) [facility] Start: 1990 MMR Vaccines (1 of 1 - Standard series) MMR Vaccines (1 of 1 - Standard series) [facility] Start: 1990 Varicella vaccine (1 of 2 - 2-dose childhood series) Varicella vaccine (1 of 2 - 2-dose childhood series) [facility] Start: 03-28-1990 COVID-19 Vaccine (#1) COVID-19 Vacci ne (#1) [facility] Start: 1989 Hepatitis C screening Hepatitis C sc miranda [employer] Phone: Start: 1989 HIV screening HIV Screening [facility] Start: 1989 Lipid panel Lipid Panel [facility] Start: 1989 Yearly Adult Physical Yearly Adult P [facility] End: 04-22-2021 C.trachomatis N.gonorrhoeae DNA C.trachomatis N.gonorrhoeae DNA Microbiology Routine Pelvic pain 1 Occurrences starting 04/22/2021 until 04/22/2021 [employer] Phone: Comment on above: 1 Occurrences starti ng 04/22/2021 until 04/22/2021 C.trachomatis N.gonorrhoeae DNA C.trachomatis N.gonorrhoeae DNA Microbiology Routine Pelvic pain 04/22/2021 5:13 PM EDT [employer] Phone: End: 04-22-2021 Culture, Genital Culture, Genital Microbiology Routine Pelvic pain 1 Occurrences starting 04/22/2021 until 04/22/2021 [employer]: Comment on above: 1 Occurrences starti ng 04/22/2021 until 04/22/2021 Culture, Genital Culture, Genita l Microbiology Routine Pelvic pain 04/22/2021 5:13 PM EDT [employer]: End: 04-22-2021 Culture, Urine Culture, Urine Microbiology Routine Pelvic pain 1 Occurrences starting 04/22/2021 until 04/22/2021 [employer]: Comment on above: 1 Occurrences starti ng 04/22/2021 until 04/22/2021 Culture, Urine Culture, Urine Microbiology Routine Pelvic pain 04/22/2021 5:12 PM EDT [employer]: End: 01-10-2025 Culture, Urine [employer] [facility] Comment on above: 1 Occurrences starti ng 01/10/2025 until 01/10/2025 End: 06-14-2024 Hemoglobin A1c/Hemoglobin.total in Blood [facility] Comment on above: 1 Occurrences starti ng 06/14/2024 until 06/14/2024 End: 07-15-2022 INITIATE PACU OXYGEN THERAPY PROTOCOL Initiate PACU Oxygen Therapy Protocol Respiratory Care Routine Continuous until discontinued starting 07/15/2022 [facility] Comment on above: Continuous until dis continued starting 07/15/2022 End: 07-05-2024 INITIATE PACU OXYGEN THERAPY PROTOCOL Initiate PACU Oxygen Therapy Protocol Respiratory Care Routine Continuous until discontinued starting 07/05/2024 [facility] Comment on above: Continuous until dis continued starting 07/05/2024 End: 06-14-2024 Lipid panel [facility] Comment on above: 1 Occurrences starti ng 06/14/2024 until 06/14/2024 End: 08-26-2024 NM Heart Perfusion W stress and W radionuclide IV [facility] Service Area Work Phone: Comment on above: Once for 1 Occurrenc es starting 08/26/2024 until 08/26/2024 Oxygen therapy [Minimum Data Set] Initiate Oxygen Therapy Protocol Respiratory Care Routine As Needed until discontinued starting 07/15/2022 [facility] Work Phone: Comment on above: As Needed until disc ontinued starting 07/15/2022 Oxygen therapy [Minimum Data Set] Initiate Oxygen Therapy Protocol Respiratory Care Routine As Needed until discontinued starting 07/05/2024 [facility] Comment on above: As Needed until disc ontinued starting 07/05/2024 End: 07-15-2022 , Urine , Urine Lab STAT One Time for 1 Occurrences starting 07/15/2022 until 07/15/2022 [employer] Work Phone: Comment on above: One Time for 1 Occur rences starting 07/15/2022 until 07/15/2022 End: 07-05-2024 , Urine , Urine Lab Routine One Time for 1 Occurrences starting 07/05/2024 until 07/05/2024 [facility] Work Phone: Comment on above: One Time for 1 Occur rences starting 07/05/2024 until 07/05/2024 Surgical pathology study Surgical Pathology Lab Routine Endometriosis Release Upon Ordering for 1 Occurrences starting 07/05/[address] [facility] Comment on above: Release Upon Orderin g for 1 Occurrences starting 07/05/2024 End: 12-30-2024 [facility] Service Area Work Phone: Comment on above: Once for 1 Occurrenc es starting 12/30/2024 until 12/30/2024 Payers Date Payer Category Payer Self-pay 2023 Private Health Insurance [facility] MEDICAID [id number] 2023 Medicaid (Managed Care) [id number] 2023 Unknown [id number] [id number]. [id number] 2020 Unknown [employer] [id number] 2020-Present [phone] [address] [place] [address] [id number]. [id number] 2017 Unknown BCBS BCBS - [place] P PO xxxxxxxxxxxxxx 2017-Present [address] [place] [address] xxxxxxxxxxxxxx [id number]. [id number] 1989 Unknown [id number] 2.16.840.1.528788.3.579.2. 593 1989 Unknown [id number] 2.16.840.1.567936.3.579.2. 1246 1989 Unknown [id number] 2.16.840.1.099129.3.579.2. 1246 1989 Unknown [id number] 2.16.840.1.953454.3.579.2. 1246 1989 Unknown [id number] 2.16.840.1.741889.3.579.2. 1246 1989 Unknown [id number] 2.16.840.1.866549.3.579.2. 1246 1989 Unknown [id number] 2.16.840.1.109810.3.579.2. 1246 1989 Unknown [id number] 2.16840.1.781916.3.579.2. 1244 1989 Unknown [id number] 2.16.840.1.241294.3.579.2. 1244 1989 Unknown [id number] 2.16.840.1.020814.3.579.2. 1244 1989 Unknown [id number] 2.16.840.1.390194.3.579.2. 1244 1989 Unknown [id number] 2.16840.1.130827.3.579.2. 175 1989 Unknown [id number] 2.16.840.1.798823.3.579.2. 1259 1989 Unknown [id number] 2.16.840.1.040841.3.579.2. 1259 1989 Unknown [id number] 2.16.840.1.265710.3.579.2. 1259 1989 Unknown [id number] 2.16.840.1.411442.3.579.2. 1259 1989 Unknown [id number] 2.16.840.1.213412.3.579.2. 1259 1989 Unknown [id number] 2.16.840.1.169421.3.579.2. 1259 1989 Unknown [id number] 2.16.840.1.092864.3.579.2. 1259 1989 Unknown [id number] 2.16.840.1.882360.3.579.2. 173 1989 Unknown [id number] 2.16.840.1.928014.3.579.2. 173 1989 Unknown [id number] 2.16.840.1.022615.3.579.2. 173 1989 Unknown [id number] 2.16.840.1.198160.3.579.2. 173 1989 Unknown [id number] 2.16840.1.538301.3.579.2. 173 1989 Unknown [id number] 2.16.840.1.194720.3.579.2. 173 1989 Unknown [id number] 2.16.840.1.401183.3.579.2. 173 1959 Unknown [id number] Unknown [id number] 2.16.840.1.561231.3.579.2. 531 Unknown [id number] 2.16.840.1.466444.3.579.2. 531 Unknown [id number] 2.16840.1.522681.3.579.2. 531 Social History Date Type Detail Facility Start: 04-22-2021 End: 12-01-2023 Tobacco smoking status [facility] [place] End: 01-13-2006 History of tobacco use Current smoker [facility] Start: 04-22-2021 End: 12-01-2023 Tobacco use and exposure Never used [facility] Start: 04-22-2021 End: 03-28-2025 Alcohol intake Current non-drinker of alcohol (finding) [facility] Work Phone: Start: 1990 Sex Assigned At Not on file [facility] Start: 02-21-2022 End: 01-09-2025 Exposure to SARS-CoV-2 (event) Not sure [facility] Start: 08-01-2019 End: 07-05-2024 Alcohol intake No [facility] End: 01-13-2006 History of tobacco use Cigarette Smoker [facility] Work Phone: Start: 05-10-2022 End: 06-14-2022 History SDOH Financial 5 [facility] Work Phone: Start: 05-10-2022 End: 06-14-2022 History SDOH Food Worry 1 [employer] Work Phone: Start: 04-02-2024 End: 07-05-2024 History of Social function [facility] How hard is it for y ou to pay for the very basics like food, housing, medical care, and heating Not hard at all [facility] (I/We) worried whejared er (my/our) food would run out before (I/we) got money to buy more. Never true [facility] At any time in the p ast 12 months, were you homeless or living in fpc [including now]? No [facility] Start: 08-30-2023 End: 08-08-2024 Tobacco smoking status NHIS Never smoked tobacco [facility] Work Phone: Start: 08-08-2024 End: 01-09-2025 Alcoholic beverage intake Ex-drinker (finding) [facility] Work Phone: Start: 08-30-2023 End: 04-02-2025 Alcoholic beverage intake Lifetime non-drinker (finding) [facility] Start: 08-29-2023 Alcohol Comment Caffeine intake: 2 cans of pop daily [facility] Start: 1990 Sex assigned at Female [employer] Start: 11-18-2012 Sex Female (finding) [employer] [facility] Start: 12-09-2024 Gender identity Identifies as female gender (finding) [facility] Start: 12-09-2024 Sexual orientation Heterosexual (finding) [facility] Clinical Notes 07-07-2022 to 04-02-2025 Ayleen Clark MD - 04/02/2025 11:20 AM Chante Clark MD - 03/12/2025 1:40 PM Leatha Wick CCC-Antoni - 03/10/2025 9:30 AM Janis Valdivia MD - 01/09/2025 9:00 AM EDTPatient Instructions Note Date & Type Note Facility 04-02-2025 History of Present illness Narrative Subjective Patient ID: Denise Harley is a 34 y.o. female who presents for vertebrobasilar insufficiency ([address] [facility] 03/26/25) CTA of the neck and head shows no abnormality. Vestibular sx persist. Family History Problem Relation Name Age of Onset Diabetes Father Jakob Hypertension Father Jakob Asthma Father Jakob Breast cancer Paternal Grandmother Roxane Ovarian cancer Paternal Grandmother Roxane Diabetes Paternal Grandmother Roxane Hypertension Paternal Grandmother Roxane Stroke Paternal Grandmother Roxane Colon cancer Paternal Grandfather Rick Diabetes Paternal Grandfather Rick Fainting Paternal Grandfather Rick Asthma Mother Kelle Migraines Mother Kelle Asthma Maternal Grandfather Arvind Fainting Maternal Grandfather Arvind Cancer Maternal Grandmother Missy Asthma Father's Sister Ana Diabetes Father's Sister Ana Tics Father's Sister Ana Asthma Sister Latoya Active Ambulatory Problems Diagnosis Date Noted Abnormal EKG 08/08/2024 Asthma (HCC) 03/11/2025 Body mass index (BMI) of 37.0 to 37.9 in adult 08/08/2024 Dizziness 08/08/2024 Dysmenorrhea 03/11/2025 Encounter to discuss test results 01/09/2025 Endometriosis 03/11/2025 Family history of syncope 09/19/2024 Mixed hyperlipidemia 01/09/2025 Never smoked tobacco 08/08/2024 Other chest pain 08/08/2024 Palpitations 08/08/2024 Post-op pain 01/16/2023 Shortness of breath 08/08/2024 Syncope and collapse 09/19/2024 Resolved Ambulatory Problems Diagnosis Date Noted No Resolved Ambulatory Problems Past Medical History: Diagnosis Date Adenomyosis Migraine Neurocardiogenic syncope Past Surgical History: Procedure Laterality Date BARTHOLIN GLAND CYST EXCISION drainage multiple times CT ANGIOGRAM NECK 03/26/2025 CT ANGIOGRAM NECK HYSTERECTOMY OTHER SURGICAL HISTORY ovariectomy PELVIC LAPAROSCOPY 2007 cholecystectomy PELVIC LAPAROSCOPY endometriosis PELVIC LAPAROSCOPY 07/15/2022 WISDOM TOOTH EXTRACTION 04/2006 Allergies Allergen Reactions Acetaminophen Other Reaction(s): ate lining of stomach Mobic [Meloxicam] GI intolerance Percocet [Oxycodone-Acetaminophen] GI intolerance Propoxyphene Other Reaction(s): ate lining of stomach Aspirin Nausea And Vomiting Omeprazole GI bleeding and Nausea Only Other Reaction(s): Unknown Tears up her stomach Oxycodone Other Other Reaction(s): Other (See Comments), Sweat GI bleed Current Outpatient Medications on File Prior to Visit Medication Sig Dispense Refill acebutolol (Sectral) 200 MG capsule Take 200 mg by mouth in the morning and 200 mg before bedtime. albuterol HFA 90 mcg/act inhaler Inhale 2 puffs every 4 (four) hours if needed for wheezing beclomethasone (Qnasl) 80 MCG/ACT aerosol solution Administer 2 sprays into each nostril Daily 8.7 g 11 [id number] D PO Take by mouth Ute 0.075 MG/24HR APPLY 1 PATCH TOPICALLY TWICE A WEEK fish oil (Denhoff-3) 500 MG capsule Take 500 mg by mouth in the morning. loratadine (Claritin) 10 MG tablet Take 10 mg by mouth Daily mometasone-formoterol (Dulera) 100-5 MCG/ACT inhaler Inhale 2 puffs in the morning and 2 puffs before bedtime. Rinse mouth with water after use to reduce aftertaste and incidence of candidiasis. Do not swallow.. 13 g 11 montelukast (Singulair) 10 MG tablet Take 10 mg by mouth at bedtime OXcarbazepine (Trileptal) 150 MG tablet Take 1 tablet (150 mg) by mouth in the morning and 1 tablet (150 mg) before bedtime. 60 tablet 3 pantoprazole (ProtoNix) 40 MG EC tablet sertraline (Zoloft) 25 MG tablet Take 25 mg by mouth Daily vitamin E (E200) capsule Take 100 Units by mouth in the morning. ipratropium (Atrovent) 0.06 % nasal spray Administer 2 sprays into each nostril in the morning and 2 sprays in the evening and 2 sprays before bedtime. 15 mL 11 [DISCONTINUED] estrogens, conjugated, (Premarin) 0.3 MG tablet Take 0.9 mg by mouth Daily No current facility-administered medications on file prior to visit. Objective Last Recorded Vitals Vitals: 04/02/25 1123 BP: 113/73 Pulse: 74 ENT Physical Exam Constitutional Appearance: patient appears well-developed, well-nourished and well-groomed, Communication/Voice: communication appropriate for developmental age; vocal quality normal; Assessment/Plan Diagnoses and all orders for this visit: Dizziness There is no VBI evident on pt's CTA. Given the non-fatiguing nystagmus noted on her [place]aria-Hallpike, and persistent sx, I will refer Denise to the [facility] vestubular clinic. Pt will get a copy of her CT to take to the appt. documented in this encounter [facility] 03-12-2025 History of Present illness Narrative Images from the original note were not included. Subjective Patient ID: Denise Harley is a 34 y.o. female who presents for Dizziness (Audio 03/10/25) Pt reports she has periods of vertigo lasting up to an hour. States these occur a couple times per day 2-3 days per week. Pt has had sx over a year. No illness at onset. H/o chronic migraines for 2 years. Pt has trouble driving at night with oncoming lights. Extensive cardiac W/U negative, though pt describes her sx an exacerbated by standing and everything going black'. No ear pain, pressure, hearing loss. Occas tinnitus. Audio normal. 10/2024 MRI brain normal. Review of Systems All other systems reviewed and are negative. Family History Problem Relation Name Age of Onset Diabetes Father Jakob Hypertension Father Jakob Asthma Father Jakob Breast cancer Paternal Grandmother Roxane Ovarian cancer Paternal Grandmother Roxane Diabetes Paternal Grandmother Roxane Hypertension Paternal Grandmother Roxane Stroke Paternal Grandmother Roxane Colon cancer Paternal Grandfather Rick Diabetes Paternal Grandfather Rick Fainting Paternal Grandfather Rick Asthma Mother Kelle Migraines Mother Kelle Asthma Maternal Grandfather Arvind Fainting Maternal Grandfather Arivnd Cancer Maternal Grandmother Missy Asthma Father's Sister Ana Diabetes Father's Sister Ana Tics Father's Sister Ana Asthma Sister Latoya Active Ambulatory Problems Diagnosis Date Noted Abnormal EKG 08/08/2024 Asthma 03/11/2025 Body mass index (BMI) of 37.0 to 37.9 in adult 08/08/2024 Dizziness 08/08/2024 Dysmenorrhea 03/11/2025 Encounter to discuss test results 01/09/2025 Endometriosis 03/11/2025 Family history of syncope 09/19/2024 Mixed hyperlipidemia (CMS/HCC) 01/09/2025 Never smoked tobacco 08/08/2024 Other chest pain 08/08/2024 Palpitations 08/08/2024 Post-op pain 01/16/2023 Shortness of breath 08/08/2024 Syncope and collapse 09/19/2024 Resolved Ambulatory Problems Diagnosis Date Noted No Resolved Ambulatory Problems Past Medical History: Diagnosis Date Adenomyosis Migraine Neurocardiogenic syncope Past Surgical History: Procedure Laterality Date BARTHOLIN GLAND CYST EXCISION drainage multiple times HYSTERECTOMY OTHER SURGICAL HISTORY ovariectomy PELVIC LAPAROSCOPY 2007 cholecystectomy PELVIC LAPAROSCOPY endometriosis PELVIC LAPAROSCOPY 07/15/2022 WISDOM TOOTH EXTRACTION 04/2006 Allergies Allergen Reactions Acetaminophen Other Reaction(s): ate lining of stomach Mobic [Meloxicam] GI intolerance Percocet [Oxycodone-Acetaminophen] GI intolerance Propoxyphene Other Reaction(s): ate lining of stomach Aspirin Nausea And Vomiting Omeprazole GI bleeding and Nausea Only Other Reaction(s): Unknown Tears up her stomach Oxycodone Other Other Reaction(s): Other (See Comments), Sweat GI bleed Current Outpatient Medications on File Prior to Visit Medication Sig Dispense Refill acebutolol (Sectral) 200 MG capsule Take 200 mg by mouth in the morning and 200 mg before bedtime. albuterol HFA 90 mcg/act inhaler Inhale 2 puffs every 4 (four) hours if needed for wheezing beclomethasone (Qnasl) 80 MCG/ACT aerosol solution Administer 2 sprays into each nostril Daily 8.7 g 11 [id number] D PO Take by mouth estrogens, conjugated, (Premarin) 0.3 MG tablet Take 0.9 mg by mouth Daily fish oil (Denhoff-3) 500 MG capsule Take 500 mg by mouth in the morning. loratadine (Claritin) 10 MG tablet Take 10 mg by mouth Daily mometasone-formoterol (Dulera) 100-5 MCG/ACT inhaler Inhale 2 puffs in the morning and 2 puffs before bedtime. Rinse mouth with water after use to reduce aftertaste and incidence of candidiasis. Do not swallow.. 13 g 11 montelukast (Singulair) 10 MG tablet Take 10 mg by mouth at bedtime OXcarbazepine (Trileptal) 150 MG tablet Take 1 tablet (150 mg) by mouth in the morning and 1 tablet (150 mg) before bedtime. 60 tablet 3 pantoprazole (ProtoNix) 40 MG EC tablet sertraline (Zoloft) 25 MG tablet Take 25 mg by mouth Daily vitamin E (E200) capsule Take 100 Units by mouth in the morning. ipratropium (Atrovent) 0.06 % nasal spray Administer 2 sprays into each nostril in the morning and 2 sprays in the evening and 2 sprays before bedtime. 15 mL 11 [DISCONTINUED] B Complex Vitamins (vitamin B complex) tablet 1 capsule 1 (one) time each day at the same time No current facility-administered medications on file prior to visit. Objective Last Recorded Vitals Vitals: 03/12/25 1323 BP: 111/77 Pulse: 64 ENT Physical Exam Constitutional Appearance: patient appears well-developed, well-nourished and well-groomed, Constitutional comments: [place]-Hallpike - nonfatigueing rotatory nystagmus left ear down. Head and Face Appearance: head appears normal and face appears atraumatic; Ear Ear Canals: bilateral ear canals impacted cerumen observed; Tympanic Membranes: right tympanic membrane normal; left tympanic membrane normal; Nose External Nose: nares patent bilaterally; external nose normal; Internal Nose: septum normal; Oral Cavity/Oropharynx Tongue: normal; Oral mucosa: normal; Hard palate: normal; Soft palate: normal; Tonsils: normal; Neck Neck: neck normal; neck palpation normal; Thyroid: thyroid normal; Respiratory Inspection: breathing unlabored; normal breathing rate; Auscultation: breath sounds are clear; Cardiovascular Inspection: extremities are warm and well perfused; no peripheral edema present; Auscultation: regular rate and rhythm; Patient ID: Denise Harley is a 34 y.o. female. Procedures Cerumen was removed from the ears using binocular microscopy under micro with suction Assessment/Plan Diagnoses and all orders for this visit: Dizziness and giddiness Bilateral impacted cerumen VBI (vertebrobasilar insufficiency) Daria-Hallpike findings do not suggest BPPV, but could represent Vertebrobasilar insufficiency, which might also explain pt's cardiac-like sx with a normal cardiac W/U. I will check a CT angio of the neck and brain documented in this encounter [facility] 03-10-2025 History of Present illness Narrative History: Pt was referred to ENT because of episodic dizziness, onset last summer. Getting up quickly, standing too long, and spinning makes the dizziness worse. Pt reports frequent otalgia, more often in the right ear. 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 Otoscopic Exam: Right Ear: Occlusive cerumen Left Ear: Ear canal clear and TM intact Pure Tone Audiometry Right Ear: Normal hearing Left Ear: Normal hearing Speech Audiometry Right SRT = 10 dB and word discrimination score at 65 dBHL (masked) = 100% Left SRT = 10 dB and word discrimination score at 65 dBHL (masked) = 100% Tympanometry Right Ear: Type Ad tympanogram Left Ear: Type Ad tympanogram documented in this encounter [facility] 01-09-2025 History of Present illness Narrative Images from the original note were not included. Chief Complaint: Chief Complaint Patient presents with Follow-up 6/8 week results for echo Subjective : Continues to have dizziness. This is her main symptom now. Denies palpitations. Denies orthostatic symptoms denies presyncope or syncope denies chest discomfort or shortness of breath Was seen by neurology and I have reviewed neurology notes. Her EEG routine and MRI of the brain with and without contrast were reported to be normal. She was noted to have ataxia on examination. Some of the dizziness sounds like vertigo. She says she gets a sensation that the room is spinning and she is nauseous. Review of Systems 12 point review of systems negative or noncontributory except as noted History so Far : 1. Chest discomfort 2. Syncope and collapse 3. Palpitations 4. BMI greater than 35 4. Shortness of breath 5. Mixed hyperlipidemia most consistent with elevated triglycerides 6. Abnormal EKG 7. Tilt table test August 2024-normal physiologic hemodynamic response to tilt maneuver and sublingual nitroglycerin administration. 8. Treadmill stress Myoview August 2024-LVEF 67% transient ischemic dilatation ratio 0.83 normal perfusion, 10.1 METS, 88% age-predicted maximum heart rate, Ross treadmill score of 8 9. 48-hour Holter monitor August 2024-multiple symptoms without corresponding dysrhythmia symptoms out of proportion to objective findings some of the symptoms corresponded to sinus tachycardia at this corresponded to sinus rhythm 10. Treadmill stress perfusion test 08/27/2024-normal, LVEF 67% 10.1 METS 88% age-predicted maximum heart rate Ross treadmill score of 8 transient ischemic dilatation ratio 0.83 which is normal 11. Tilt table test September 2024-negative tilt table test, normal hemodynamic response to tilt maneuver and nitroglycerin administration 12. Chronic migraine without aura and without status migrainosus not intractable 13. Echocardiogram December 2024-LVEF 60 to 65% normal valves left atrial diameter 3.7 cm no pericardial effusion aortic root normal RV systolic pressure 30 mmHg no significant tricuspid regurgitation was reported. She has a past surgical history that includes Cholecystectomy (2007); Exploratory laparotomy; Hysterectomy (2022); and Bilateral oophorectomy (2023). Objective Wt Readings from Last 3 Encounters: 01/09/25 108 kg (239 lb) 09/19/24 104 kg (230 lb) 08/08/24 103 kg (226 lb) Vitals: 01/09/25 0921 01/09/25 0922 BP: 130/90 110/70 BP Location: Left arm Left arm Patient Position: Standing Sitting Pulse: 72 Weight: 108 kg (239 lb) Height: 1.702 m (5' 7 ) Physical Exam: GENERAL APPEARANCE: in no acute distress. CHEST: Symmetric and non-tender. INTEGUMENT: Skin warm and dry HEENT: No gross abnormalities identified.No pallor or scleral icterus. NECK: Supple, no JVD, no bruit. NEURO/PSHCY: Alert and oriented x3; appropriate behavior and responses and responses LUNGS: Clear to auscultation bilaterally; normal respiratory effort. HEART: Rate and rhythm regular with no evident murmur; no gallop appreciated. ABDOMEN: Soft, non tender. MUSCULOSKELETAL: No gross deformities. EXTREMITIES: Warm There is no edema noted. Meds: Current Outpatient Medications Medication Instructions albuterol 90 mcg/actuation inhaler 2 puffs, Every 6 hours PRN albuterol 2.5 mg, Every 6 hours PRN beclomethasone (QNASL) 80 mcg/actuation HFA aerosol inhaler 2 sprays, Daily calcium carbonate-vitamin D3 500 mg-15 mcg (600 unit) tablet 1 tablet, Daily Dulera 100-5 mcg/actuation inhaler 2 puffs, 2 times daily RT estrogens (conjugated) (PREMARIN) 0.625 mg, Daily fish oil (Denhoff-3) 60-90-500 mg capsule 500 mg, oral, Daily ipratropium (Atrovent) 42 mcg (0.06 %) nasal spray 2 sprays, 3 times daily loratadine (CLARITIN) 10 mg, Daily montelukast (Singulair) 10 mg tablet 1 tablet, Nightly OXcarbazepine (TRILEPTAL) 150 mg, 2 times daily pantoprazole (ProtoNix) 40 mg EC tablet 1 tablet, Daily before breakfast sertraline (ZOLOFT) 25 mg, oral, Daily vitamin E 100 Units, Daily Allergies Allergen Reactions Darvocet A500 [Propoxyphene N-Acetaminophen] GI bleeding Mobic [Meloxicam] GI bleeding Percocet [Oxycodone-Acetaminophen] GI bleeding Prilosec [Omeprazole] GI bleeding LABS: HgBA1c: Lab Results Component Value Date HGBA1C 5.0 06/14/2024 Reviewed all available pertinent laboratory data and diagnostic testing results that occurred after the last office visit with me Assessment: 1. Encounter to discuss test results 2. Syncope and collapse Follow Up In Cardiology 3. Dizziness 4. Other chest pain 5. Palpitations 6. Shortness of breath 7. Mixed hyperlipidemia 8. Never smoked tobacco 9. Body mass index (BMI) of 37.0 to 37.9 in adult Clinical Decision Making: Based on all the cardiac testing we have done, and persistent dizziness, I think we should have an ENT consultation. Cannot exclude vertigo. She does have some pulmonary issues, she takes inhalers, however she has tolerated the acebutolol. I will try switching her to propranolol LA 60 mg daily, propranolol will also help with her migraine attacks. Driving restrictions and activity restrictions are per neurology. Patient to call us if the medication change is not helpful. In that case we will switch her back to acebutolol. Not orthostatic in office today. Has hypertriglyceridemia, she takes fish oil. She will continue this. Weight loss efforts and regular aerobic activity are encouraged. Follow up : 6 months I, Juanita Sood LPN scribing for, and in the presence of Dr. Elli Valdivia MD, [facility]. I, Dr. Elli Valdivia MD, FAC, personally performed the services described in the documentation as scribed by Juanita Sood LPN in my presence, and confirm it is both accurate and complete. documented in this encounter [facility] Work Phone: 01-09-2025 Instructions Juanita George LPN - 01/09/2025 9:00 AM EDT Please bring all medicines, vitamins, and herbal supplements with you when you come to the office. Prescriptions will not be filled unless you are compliant with your follow up appointments or have a follow up appointment scheduled as per instruction of your physician. Refills should be requested at the time of your visit. BMI was above normal measurement. Current weight: 108 kg (239 lb) Weight change since last visit (-) denotes wt loss 9 lbs Weight loss needed to achieve BMI 25: 79.7 Lbs Weight loss needed to achieve BMI 30: 47.9 Lbs Provided instructions on dietary changes Provided instructions on exercise. documented in this encounter [facility] Work Phone: 10-23-2024 History of Present illness Narrative Images from the original note were not included. Chief Complaint: Headaches Subjective Denise Harley, 34 y.o., female Patient presents today for a neurologic consult for syncope, headaches and dizziness. Patient states when she was around 9 she was diagnosed with neurogenic syncope. She has been having symptoms of dizziness since then but this has worsened within the last year. She reports an episode of syncope about once a year. The last episode was in March. She reports headaches for about one year. She reports 3-4 headaches a week. These are located on the back right side of her head. She reports these can last a few hours to all day. She uses naproxen with little relief. She has not tried any prescription medications. She also reports a bilateral hand tremor with the right being worse. This is intermittent. She does not notice any triggers. She has not tried any medications for this. She denies any imaging. Review of Systems Constitutional: Negative for appetite change, fatigue and fever. Respiratory: Negative for cough, shortness of breath and wheezing. Cardiovascular: Negative for chest pain, palpitations and leg swelling. Gastrointestinal: Negative for abdominal pain, constipation, diarrhea and nausea. Musculoskeletal: Negative for arthralgias, gait problem and myalgias. Neurological: Positive for tremors and syncope. Negative for dizziness, numbness and headaches. Past Medical History: Diagnosis Date Adenomyosis Asthma (CMS/HCC) Endometriosis Neurocardiogenic syncope Past Surgical History: Procedure Laterality Date BARTHOLIN GLAND CYST EXCISION drainage multiple times PELVIC LAPAROSCOPY 2007 cholecystectomy PELVIC LAPAROSCOPY endometriosis PELVIC LAPAROSCOPY 07/15/2022 WISDOM TOOTH EXTRACTION 04/2006 Family History Problem Relation Name Age of Onset Diabetes Father Hypertension Father Breast cancer Paternal Grandmother Ovarian cancer Paternal Grandmother Colon cancer Paternal Grandfather Social History Tobacco Use Smoking status: Never Smokeless tobacco: Never Substance Use Topics Alcohol use: Never Comment: Caffeine intake: 2 cans of pop daily Allergies: Mobic [meloxicam], Percocet [oxycodone-acetaminophen], and Propoxyphene Vitals: 10/23/24 1351 BP: 138/88 Pulse: 67 SpO2: 100% Body mass index is 35.58 kg/m . weight: 234 lb Neurologic exam: Mental status: Awake, alert to person, place and time. Recent and remote memory are intact. Language is fluent without aphasia. Attention and concentration are normal. Fund of knowledge is appropriate for level of education. Cranial nerves: CN II: Visual acuity is normal. Visual acosta full to confrontation. CN III, IV, : pupils equal round and reactive to light. Extraocular movements intact. No ptosis present. CN V: Facial sensation is normal. CN VII: Full and symmetric facial movement. CN VIII: Hearing is normal to finger rub bilaterally: CN IX and X: Palate elevates symmetrically. CN XI: Shoulder shrug is normal bilaterally. CN XII: Tongue is midline without atrophy or fasciculation. Motor: RUE Strength deltoid, , biceps , triceps , wrist extensors , wrist flexor , director of events strength 5/5. LUE Strength deltoid , biceps , triceps , wrist extensors , wrist flexor , director of events strength 5/5. RLE Strength illopsoas, quadriceps, tibialis anterior, and gastrocnemius strength 5/5. LLE Strength illopsoas, quadriceps, tibialis anterior, and gastrocnemius strength 5/5. Normal tone x4 extremities. Bulk is normal. Sensory: Sensation is intact to light touch throughout Four extremities. Reflexes: RUE biceps reflex 2+ brachioradialis reflex 2+ . LUE biceps reflex 2+ brachioradialis reflex 2+ . RLE knee reflex 2+ . LLE knee reflex 2+ . Arenas's sign negative. Coordination: Abnormal bilaterally Gait: Normal Review and summary of old records: Orthostatics on 10/23/24: negative Assessment/Plan Diagnoses and all orders for this visit: Ataxia Syncope, unspecified syncope type It is my impression that the patient has episodes of loss of consciousness that are occurring a few times per year. She is also getting persistent dizziness and has ataxia on examination. Certainly this is concerning for the potential for an intracranial lesion which could be precipitating seizure-like events. No definitive history of seizure or seizure risk factors. Examination today is normal other than the ataxia noted. Orthostatic vital signs are negative Plan: MRI of the brain with and without contrast to assess for any intracranial pathology that may account for symptoms as above Routine EEG to assess for any epileptiform abnormalities that may account for the patient's symptoms I did discuss with the patient that I believe she should follow up closely with primary care to exclude any potential cardiac cause of this condition Chronic migraine without aura without status migrainosus, not intractable (CMS/HCC) The patient also seems to have pretty clear history of chronic migraine. She gets almost daily headaches. We are imaging of brain as above reasons mentioned above which will be important. Patient also seems to have a history of breathing disorders and as such beta blockers would not be a good choice for her. Given the concern for episodes of loss of consciousness and for some of the stress that may be precipitating the events the patient may be a good candidate for medication options such as oxcarbazepine. Plan: - OXcarbazepine (Trileptal) 150 MG tablet; Take 1 tablet (150 mg) by mouth in the morning and 1 tablet (150 mg) before bedtime. - Keep migraine diary and diet and avoid triggers No driving, tub bathing alone or swimming alone until 3-6 months episode free and cleared by Neurology Pt has been fully educated on their diagnosis, lab results, treatment options, follow up plan, and return instructions documented in this encounter [facility] 09-19-2024 History of Present illness Narrative Patient was initially seen by me 08/08/2024. Testing was ordered to include a Holter echocardiogram perfusion imaging study and tilt table test. Subjective : Continues to have dizzy woozy spells. No syncope Continues to have exertional shortness of breath with activity such as going up a flight of stairs Very uncomfortable with certain activities such as painting, which causes her to pass out. She has a long history of syncope. She reports that a prior tilt table test years ago suggested vasodepressor spell. The most recent tilt table test does not. She has questionable asthma based on her pulmonary function testing. History so Far : 1. Chest discomfort 2. Syncope and collapse 3. Palpitations 4. BMI greater than 35 4. Shortness of breath 5. Mixed hyperlipidemia most consistent with elevated triglycerides 6. Abnormal EKG 7. Tilt table test August 2024-normal physiologic hemodynamic response to tilt maneuver and sublingual nitroglycerin administration. 8. Treadmill stress Myoview August 2024-LVEF 67% transient ischemic dilatation ratio 0.83 normal perfusion, 10.1 METS, 88% age-predicted maximum heart rate, Ross treadmill score of 8 9. 48-hour Holter monitor August 2024-multiple symptoms without corresponding dysrhythmia symptoms out of proportion to objective findings some of the symptoms corresponded to sinus tachycardia at this corresponded to sinus rhythm 10. Treadmill stress perfusion test 08/27/2024-normal, LVEF 67% 10.1 METS 88% age-predicted maximum heart rate Ross treadmill score of 8 transient ischemic dilatation ratio 0.83 which is normal 11. Tilt table test September 2024-negative tilt table test, normal hemodynamic response to tilt maneuver and nitroglycerin administration She has a past surgical history that includes Cholecystectomy (2007); Exploratory laparotomy; Hysterectomy (2022); and Bilateral oophorectomy (2023). Objective Wt Readings from Last 3 Encounters: 09/19/24 104 kg (230 lb) 08/08/24 103 kg (226 lb) Vitals: 09/19/24 1335 09/19/24 1423 BP: (!) 126/92 132/82 BP Location: Right arm Left arm Patient Position: Sitting Standing Pulse: 80 Weight: 104 kg (230 lb) Height: 1.702 m (5' 7 ) Physical Exam: Not orthostatic in office today. GENERAL APPEARANCE: in no acute distress. CHEST: Symmetric and non-tender. INTEGUMENT: Skin warm and dry HEENT: No gross abnormalities identified.No pallor or scleral icterus. NECK: Supple, no JVD, no bruit. NEURO/PSHCY: Alert and oriented x3; appropriate behavior and responses and responses LUNGS: Clear to auscultation bilaterally; normal respiratory effort. HEART: Rate and rhythm regular with no evident murmur; no gallop appreciated. ABDOMEN: Soft, non tender. MUSCULOSKELETAL: No gross deformities. EXTREMITIES: Warm There is no edema noted. Meds: Current Outpatient Medications Medication Instructions acebutolol (SECTRAL) 200 mg, oral, 2 times daily albuterol 90 mcg/actuation inhaler 2 puffs, Every 6 hours PRN albuterol 2.5 mg, Every 6 hours PRN beclomethasone (QNASL) 80 mcg/actuation HFA aerosol inhaler 2 sprays, Daily calcium carbonate-vitamin D3 500 mg-15 mcg (600 unit) tablet 1 tablet, Daily Dulera 100-5 mcg/actuation inhaler 2 puffs, 2 times daily RT fish oil (Denhoff-3) 60-90-500 mg capsule 500 mg, oral, Daily ipratropium (Atrovent) 42 mcg (0.06 %) nasal spray 2 sprays, 3 times daily loratadine (CLARITIN) 10 mg, Daily montelukast (Singulair) 10 mg tablet 1 tablet, Nightly pantoprazole (ProtoNix) 40 mg EC tablet 1 tablet, Daily before breakfast Premarin 0.3 mg, Daily vitamin E 100 Units, Daily Allergies Allergen Reactions Darvocet A500 [Propoxyphene N-Acetaminophen] GI bleeding Mobic [Meloxicam] GI bleeding Percocet [Oxycodone-Acetaminophen] GI bleeding Prilosec [Omeprazole] GI bleeding LABS: Lab Results Component Value Date HGBA1C 5.0 06/14/2024 Patient Active Problem List Diagnosis Date Noted Syncope and collapse 09/19/2024 Family history of syncope 09/19/2024 BMI 36.0-36.9,adult 08/08/2024 Never smoked tobacco 08/08/2024 Dizziness 08/08/2024 Other chest pain 08/08/2024 Shortness of breath 08/08/2024 Palpitations 08/08/2024 Abnormal EKG 08/08/2024 Assessment: 1. Other chest pain 2. Syncope and collapse Follow Up In Cardiology acebutolol (Sectral) 200 mg capsule Referral to Neurology MR cardiac morphology and function w and wo IV contrast 3. Palpitations MR cardiac morphology and function w and wo IV contrast 4. Shortness of breath MR cardiac morphology and function w and wo IV contrast 5. Dizziness Follow Up In Cardiology Referral to Neurology MR cardiac morphology and function w and wo IV contrast 6. BMI 36.0-36.9,adult 7. Never smoked tobacco 8. Family history of syncope Referral to Neurology MR cardiac morphology and function w and wo IV contrast Clinical decision making: Discussed test results. She does have vasodepressor symptoms, and her long history of syncope is consistent with. As far as the shortness of breath goes, I do not have a clear-cut explanation. The diagnosis of reactive airway disease is very iffy. I think assessment of her valves and LV function with particular emphasis on pulmonary hypertension is valuable. Will proceed with cardiac MRI. She does have family history of syncope. She is agreeable to a trial of medical therapy. Recommended acebutolol 200 mg p.o. twice daily and sertraline 25 mg p.o. daily. Lifestyle modifications are discussed at every visit. Follow up : 6 to 8 weeks Provider Attestation - Scribe documentation All medical record entries made by the Scribe were at my direction and personally dictated by me. I have reviewed the chart and agree that the record accurately reflects my personal performance of the history, physical exam, discussion and plan. Scribe Attestation By signing my name below, I, Vanna Jolly LPN , [place] attest that this documentation has been prepared under the direction and in the presence of Elli Valdivia MD. documented in this encounter [facility] Work Phone: 09-19-2024 Instructions Vanna Colin LPN - 09/19/2024 1:45 PM EST Please bring all medicines, vitamins, and herbal supplements with you when you come to the office. Prescriptions will not be filled unless you are compliant with your follow up appointments or have a follow up appointment scheduled as per instruction of your physician. Refills should be requested at the time of your visit. BMI was above normal measurement. Current weight: 104 kg (230 lb) Weight change since last visit (-) denotes wt loss 4 lbs Weight loss needed to achieve BMI 25: 70.7 Lbs Weight loss needed to achieve BMI 30: 38.9 Lbs Provided instructions on dietary changes Provided instructions on exercise. documented in this encounter [facility] Work Phone: 09-12-2024 History of Present illness Narrative Denise Harley returns to the office today for follow-up visit for her allergic rhinitis. She recently had her ovaries removed surgically. She has been using QNASL which she finds significantly beneficial for her symptoms. Skin testing was initially negative for common environmental allergens. She has been using a combination of azelastine and QNASL. She is still sneezing a good bit and has post nasal drip as well. Qnasl is helpful but the azelastine nasal spray gives her nose bleeds. She is about half better. She has been using Dulera in AM and this is helpful. Asthma control test today is 21. She has been using albuterol as her rescue bronchodilator. EXAM The patient appears comfortable in the office today. Lungs are clear to auscultation bilaterally. The oral mucosa is pink and healthy without any lesions or ulcers. The palate elevates in the midline. The nasal mucosa is pink and healthy. There is no epistaxis mucopus or nasal polyposis noted. The nasal septum is approximately in the midline. The skin is clear of any lesions, excoriations, or erythema. IMPRESSION: Vasomotor rhinitis - continue Qnasl and add nasal ipratropium to WM in NW. AYR gel to prevent epistaxis. We will stop her azelastine nasal spray. Mild intermittent asthma - continue Dulera refill all. Use Dulera as rescue bronchodilator up to 12 per day. documented in this encounter [facility] 08-08-2024 History of Present illness Narrative Referred by Dr. Thuan Moralez for New Patient Visit (Abn EKG, chest pain, dizziness) History Of Present Illness: Denise Harley is a 33 y.o. female presenting with history of neurocardiogenic syncope, presents with multiple symptoms to include chest discomfort palpitations lightheadedness presyncope and syncope. Chest discomfort came on last year, but this year it is much more frequent, she describes it as a pressure sensation that can last anywhere from 1 to 5 minutes, not particularly related to activity or meals, radiates to the mid back, not associated with diaphoresis or lightheadedness, not associated with shortness of breath nausea or vomiting. Has noticed palpitations which she describes as a flip-flopping sensation that comes and goes, sporadic in occurrence. Has had bouts of dizziness, and in April of this year she passed out after being in a standing position for a period of time no warning just fell to the ground. She has had surgical menopause last year. She is status postcholecystectomy She has lost about 10 pounds in the last 6 months She does snore at night. Has no diagnosis of sleep apnea. Recent emergency room visit information was reviewed. Her EKG is abnormal and that there is a pattern of anterior septal myocardial infarction which was also noted on 07/15/2024. Denies TIA type symptoms Denies migraine headaches No prior diagnosis of mitral valve prolapse 12 point review of systems is negative or noncontributory except as noted.. Past Medical History: She has no past medical history on file. Past Surgical History: She has a past surgical history that includes Cholecystectomy (2007); Exploratory laparotomy; Hysterectomy (2022); and Bilateral oophorectomy (2023). Social History: She reports that she has never smoked. She has never used smokeless tobacco. She reports that she does not currently use alcohol. She reports that she does not use drugs. Family History: Family History Problem Relation Name Age of Onset Hypertension Father Diabetes Father Other (heart problem) Father Clotting disorder Father Allergies: Darvocet a500 [propoxyphene n-acetaminophen], Mobic [meloxicam], Percocet [oxycodone-acetaminophen], and Prilosec [omeprazole] Outpatient Medications: Current Outpatient Medications Medication Instructions albuterol 90 mcg/actuation inhaler 2 puffs, Every 6 hours PRN albuterol 2.5 mg, Every 6 hours PRN beclomethasone (QNASL) 80 mcg/actuation HFA aerosol inhaler 2 sprays, Daily calcium carbonate-vitamin D3 500 mg-15 mcg (600 unit) tablet 1 tablet, Daily Dulera 100-5 mcg/actuation inhaler 2 puffs, 2 times daily RT fish oil (Denhoff-3) 60-90-500 mg capsule 500 mg, oral, Daily loratadine (CLARITIN) 10 mg, Daily montelukast (Singulair) 10 mg tablet 1 tablet, Nightly pantoprazole (ProtoNix) 40 mg EC tablet 1 tablet, Daily before breakfast Premarin 0.3 mg, Daily vitamin E 100 Units, Daily Last Recorded Vitals: Vitals: 08/08/24 0913 08/08/24 0914 08/08/24 0915 BP: (!) 140/96 (!) 132/98 (!) 128/98 BP Location: Left arm Right arm Left arm Patient Position: Sitting Sitting Standing Pulse: 82 Weight: 103 kg (226 lb) Height: 1.702 m (5' 7 ) Physical Exam: Patient is not orthostatic. GENERAL APPEARANCE: Well developed, well nourished, in no acute distress. CHEST: Symmetric and non-tender. INTEGUMENT: Skin warm and dry, without gross excoriationis or lesions. HEENT: No gross abnormalities, no jugular venous distention no carotid bruit or scleral icterus NECK: Supple, no JVD, no bruit. Thyroid not palpable. Carotid upstrokes normal. NEURO/PSHCY: Alert and oriented x3; appropriate behavior and responses and responses, with normal balance and coordination LUNGS: Clear to auscultation bilaterally; normal respiratory effort. HEART: Rate and rhythm regular with no evident murmur; no gallop appreciated. There are no rubs, clicks or heaves. ABDOMEN: Soft, nontender, no masses or bruits. MUSCULOSKELETAL: No obvious deformity identified EXTREMITIES: Warm There is no edema noted. PERIPHERAL VASCULAR: Pulses present and equally palpable; 2+ throughout. Labs reviewed today : Lipid profile from June 2024 shows total cholesterol of 211 HDL 36 LDL 129 triglycerides 235 total cholesterol to HDL ratio of 6.0. Hemoglobin A1c is 5.0 hemoglobin 14.3 hematocrit 42 platelets 264 sodium 139 potassium 3.8 GFR greater than 60 liver enzymes normal Assessment/Plan 1. Chest pressure 2. Syncope and collapse Transthoracic Echo Complete Tilt Table Nuclear Stress Test 3. Palpitations ECG 12 Lead Transthoracic Echo Complete Tilt Table Holter Or Event Butcher'S Assistant Nuclear Stress Test 4. BMI 35.0-35.9,adult 5. Never smoked tobacco 6. Dizziness Follow Up In Cardiology Transthoracic Echo Complete Tilt Table Nuclear Stress Test 7. Shortness of breath Transthoracic Echo Complete Tilt Table Nuclear Stress Test 8. Abnormal EKG Transthoracic Echo Complete Tilt Table Nuclear Stress Test 9. Elevated triglycerides with high cholesterol fish oil (Denhoff-3) 60-90-500 mg capsule Patient with risk factors of surgical menopause, increased BMI, mixed hyperlipidemia, presents with multiple symptoms as noted, with abnormal EKG. She does have a history of neurocardiogenic syncope, which is what is most likely happening now as well. In view of her symptoms, we will proceed with additional testing to include echocardiogram treadmill perfusion imaging to table test 48-hour Holter monitor. Lifestyle modification discussed. Follow-up after testing sooner if interval problems arise Avoid situations that syncope. Thank you for allowing me to participate in Denise's care, please do not hesitate to call if further questions arise in the Sincerely, Elli Valdivia MD [facility] Provider Attestation - Scribe documentation All medical record entries made by the Scribe were at my direction and personally dictated by me. I have reviewed the chart and agree that the record accurately reflects my personal performance of the history, physical exam, discussion and plan. documented in this encounter [facility] Work Phone: 08-08-2024 Instructions Vanna Colin LPN - 08/08/2024 9:15 AM EDT Please bring all medicines, vitamins, and herbal supplements with you when you come to the office. Prescriptions will not be filled unless you are compliant with your follow up appointments or have a follow up appointment scheduled as per instruction of your physician. Refills should be requested at the time of your visit. BMI was above normal measurement. Current weight: 103 kg (226 lb) Weight change since last visit (-) denotes wt loss 226 lbs Weight loss needed to achieve BMI 25: 66.7 Lbs Weight loss needed to achieve BMI 30: 34.9 Lbs Provided instructions on dietary changes Provided instructions on exercise. documented in this encounter [facility] Work Phone: 07-05-2024 History of Present illness Narrative Discharge Criteria Inpatients must meet Criteria 1 through 7. All other patients are either YES or N/A. If a NO is chosen then Anesthesia or Surgeon must be notified. 1. Minimum 30 minutes after last dose of sedative medication. Yes 2. Systolic BP between 90 - 160. Diastolic BP between 60 - 90. Yes 3. Pulse between 60 - 120 Yes 4. Respirations between 8 - 25. Yes 5. SpO2 92% - 100%. Yes 6. Able to cough and swallow or return to baseline function. Yes 7. Alert and oriented or return to baseline mental status. Yes 8. Demonstrates controlled, coordinated movements, ambulates with steady gait, or return to baseline activity function. Yes 9. Minimal or no pain or nausea, or at a level tolerable and acceptable to patient. Yes 10. Takes and retains oral fluids as allowed. Yes 11. Procedural / perioperative site stable. Minimal or no bleeding. Yes 12. If GI endoscopy procedure, minimal or no abdominal distention or passing flatus. N/A 13. Written discharge instructions and emergency telephone number provided. Yes 14. Accompanied by a responsible adult. Yes Patient instructed on the pre-operative, intra-operative, and post-operative process. Patient instructed on NPO status. Medication instructions and pre operative instruction sheet reviewed with the patient. CHG skin prep instructions reviewed with patient. Patient stopped taking Naproxen, vitamins and supplements 2 weeks ago. documented in this encounter [facility] 07-05-2024 Hospital Discharge instructions Sarah Epstein PA-C - 07/05/2024 8:08 AM EDT SAME DAY SURGERY DISCHARGE INSTRUCTIONS 1. Do not drive or operate hazardous machinery for 24 hours. 2. Do not make important personal or business decisions for 24 hours. 3. Do not drink alcoholic beverages for 24 hours. 4. Do not smoke tobacco products for 24 hours. 5. Patient should not be left alone for 12-24 hours following surgical procedure. 6. Eat light foods (Jell-O, soups, etc....) and drink plenty of fluids (water, Sprite, etc...) up to 8 glasses per day, as you can tolerate. 7. If your bandages become soaked with bright red blood, place another dressing pad over your bandages. (DO NOT remove original bandage.) Call your surgeon for further instructions. A small amount of bright red blood is to be expected. 8. Wash hands before and after incision care. It is important to practice good personal hygiene during the post op period. 9. You may remove your dressing the morning following surgery; leave the steri-strips in place, they will fall off on their own. If they have not fallen off in 7-10 days, please remove them. 10. If no drainage from incisions you may shower. 11. Limit your activities for 24 hours. Do not engage in heavy work until your surgeon gives you permission. DO NOT lift anything heavier than 10 pounds. You may go up & down stairs and do any activity that can be done comfortably. 12. Report the following signs or any questions regarding your physical condition to your surgeon immediately: Excessive swelling of, or around the wound area. Redness or pus-like drainage Temperature of 100 degrees (F) or above. Excessive pain. If unable to urinate 4 hours after surgery. If bleeding at surgery site continues after 5-10 minutes of pressure. 13. Pain Control: Take pain meds as prescribed. You may use over the counter meds like Acetaminophen or Ibuprofen if not part of the meds already prescribed. While on narcotic pain meds DO NOT drive, operate machinery or make business decisions. 14. Try to avoid constipation (no bowel movement) by using over the counter Colace once or twice daily and increasing your fluid intake. Please call if no bowel movement after increasing fluid intake, use of Milk of Magnesia, Pericolace (laxative) or Dulcolax suppositories. 15. No sexual activity, tampons, douches, sitting in hot tubs/saunas or swimming in pools/ponds for 2 weeks or until cleared by your surgeon. 16. Call your surgeon for any questions regarding your surgery. 17. Call for an appointment to see your surgeon in [address] Veliz -- [place] office [phone] [place] office [phone] documented in this encounter [facility] 07-15-2022 Hospital Discharge instructions Afua Sánchez RN - 07/15/2022 7:56 AM EDT SAME DAY SURGERY DISCHARGE INSTRUCTIONS 1. Do not drive or operate hazardous machinery for 24 hours. 2. Do not make important personal or business decisions for 24 hours. 3. Do not drink alcoholic beverages for 24 hours. 4. Do not smoke tobacco products for 24 hours. 5. Eat light foods (Jell-O, soups, etc....) and drink plenty of fluids (water, Sprite, etc...) up to 8 glasses per day, as you can tolerate. 6. If your bandages become soaked with bright red blood, place another dressing pad over your bandages. (DO NOT remove original bandage.) Call your surgeon for further instructions. A small amount of bright red blood is to be expected. 7. You may remove your dressing the morning following surgery; leave the steri-strips in place, they will fall off on their own. If they have not fallen off in 7-10 days, please remove them. 8. If no drainage from incisions you may shower. 9. Limit your activities for 24 hours. Do not engage in heavy work until your surgeon gives you permission. DO NOT lift anything heavier than 10 pounds. You may go up & down stairs and do any activity that can be done comfortably. 10. Report the following signs or any questions regarding your physical condition to your surgeon immediately: Excessive swelling of, or around the wound area. Redness or pus-like drainage Temperature of 100 degrees (F) or above. Excessive pain. If unable to urinate 4 hours after surgery. If bleeding at surgery site continues after 5-10 minutes of pressure. 11. Pain Control: Take pain meds as prescribed. You may use over the counter meds like Acetaminophen or Ibuprofen if not part of the meds already prescribed. While on narcotic pain meds DO NOT drive, operate machinery or make business decisions. 12. Try to avoid constipation (no bowel movement) by using over the counter Colace once or twice daily and increasing your fluid intake. Please call if no bowel movement after increasing fluid intake, use of Milk of Magnesia, Pericolace (laxative) or Dulcolax suppositories. 13. No sexual activity, tampons, douches, sitting in hot tubs/saunas or swimming in pools/ponds for 2 weeks or until cleared by your surgeon. 14. Call your surgeon for any questions regarding your surgery. 15. Call for an appointment to see your surgeon in [address] Veliz -- [place] office [phone] [place] office [phone] the next time you have surgery, remind staff that you felt anxious in PACU, versed helped your symptoms. documented in this encounter [facility] Phone: 07-07-2022 History of Present illness Narrative Patient instructed on the pre-operative, intra-operative, and post-operative process. Patient instructed on NPO status. Medication instructions and pre operative instruction sheet reviewed with the patient. CHG skin prep instructions reviewed with patient. Instructed pt to stop taking vitamin E and naproxen and to take nexium with a small sip of water prior to arriving to the hospital the day of surgery. Attempted PAT phone call; no answer; message left to return PAT phone call. documented in this encounter [facility] Phone: Evaluation note Diagnosis Pelvic pain documented in this encounter [employer] Phone: evaluation note* Diagnosis Urinary frequency Urinary urgency Urgency of urination documented in this encounter [place]* Diagnosis Breast pain, right Mastodynia documented in this encounter [facility] Phone: evaluation note* Diagnosis Routine general medical examination at a [facility] facility Pelvic pain documented in this encounter [facility] Phone: evaluation note* Diagnosis Post-op pain- Primary Other acute postoperative pain documented in this encounter [facility] Phone: evaluation note* Diagnosis Impaired fasting glucose Routine general medical examination at a health care facility Elevated cholesterol with high triglycerides Mixed hyperlipidemia Endometriosis Endometriosis, site unspecified [facility] this encounter [facility]* Diagnosis Postoperative pain- Primary Other acute postoperative pain Endometriosis Endometriosis, site unspecified documented in this encounter [facility] ELIK[facility]* Diagnosis Chest pressure- Primary Other chest pain Syncope and collapse Palpitations BMI 35.0-35.9,adult Never smoked tobacco Dizziness Dizziness and giddiness Shortness of breath Abnormal EKG Nonspecific abnormal electrocardiogram (ECG) (EKG) Elevated triglycerides with high cholesterol Mixed hyperlipidemia documented in this encounter [facility] Work Phone: Evaluation note* Diagnosis Dizziness Dizziness and giddiness Shortness of breath Palpitations Abnormal EKG Nonspecific abnormal electrocardiogram (ECG) (EKG) Syncope and collapse documented in this encounter [facility] Work Phone: Evaluation note* Diagnosis Asthma, allergic, mild intermittent, uncomplicated (CMS/HCC)- Primary Vasomotor rhinitis Allergic rhinitis, cause unspecified Chronic rhinitis Mild intermittent asthma without complication ([facility]/HCC) documented in this encounter [facility] HealthcareEvaluation note* Diagnosis Other chest pain Syncope and collapse Palpitations Shortness of breath Dizziness Dizziness and giddiness BMI 36.0-36.9,adult Never smoked tobacco Family history of syncope Family history of other condition documented in this encounter [facility] Work Phone: Evaluation note* Diagnosis Ataxia- Primary Lack of coordination Syncope, unspecified syncope type Chronic migraine without aura without status migrainosus, not intractable ([facility]) documented in this encounter [facility] HealthcareEvaluation note* Diagnosis Shortness of breath Syncope and collapse documented in this encounter [facility] Work Phone: Evaluation note* Diagnosis Encounter to discuss test results Other specified counseling Syncope and collapse Dizziness Dizziness and giddiness Other chest pain Palpitations Shortness of breath Mixed hyperlipidemia Never smoked tobacco Body mass index (BMI) of 37.0 to 37.9 in adult documented in this encounter [facility] Work Phone: Evaluation note* Diagnosis Abdominal pain, unspecified abdominal location [facility] Diagnosis Decreased urine output Dizziness Dizziness and giddiness documented in this encounter [facility] HealthEvaluation note* Diagnosis Decreased urine output documented in this encounter [facility] HealthEvaluation note* Diagnosis Dizziness- Primary Dizziness and giddiness documented [facility] this encounter [facility]* Diagnosis Dizziness and giddiness- Primary Bilateral impacted cerumen Impacted cerumen VBI (vertebrobasilar insufficiency) documented [facility] encounter [facility]* Diagnosis Dizziness- Primary Dizziness and giddiness documented [facility] this encounter [facility]* Diagnosis Decreased urine output documented in this encounter [facility] HealthReason for visit Narrative* Cardiac Stress Testing (Routine) - Authorized Specialty Diagnoses / Procedures Referred By Contac t Referred To Contact Radiology Diagnoses Dizziness Other chest pain Shortness of breath Palpitations Abnormal EKG Syncope and collapse Procedures Nuclear Stress Test CHG MYOCARDIAL SPECT MULTIPLE STUDIES Elli Valdivia MD [address] [address] Phone: tel: fax: Referral ID Status Reason Start Date Expiration Date Visits Requested Visits Authorized [id number] Authorized Perform Procedure 4 08/08/2025 3 5 [facility] Work Phone: reason for visit Narrative* Cardiac Stress Testing (Routine) - Authorized Specialty Diagnoses / Procedures Referred By Contac t Referred To Contact Radiology Diagnoses Dizziness Other chest pain Shortness of breath Palpitations Abnormal EKG Syncope and collapse Procedures Nuclear Stress Test CHG MYOCARDIAL SPECT MULTIPLE STUDIES Elli Valdivia MD [address] [address] Phone: tel: fax: Referral ID Status Reason Start Date Expiration Date Visits Requested Visits Authorized [id number] Authorized Perform Procedure 4 08/08/2025 3 5 [facility] Work Phone: reason for visit Narrative* Consultation (Routine) - Closed Specialty Diagnoses / Procedures Referred By Contac t Referred To Contact Neurology Diagnoses Dizziness and giddiness Syncope and collapse Family history of other specified conditions Procedures VA OFFICE/OUTPATIENT [facility] Elli Valdivia MD [address] [place] [address] Phone: tel: fax: Drake Kohli MD [address] [place] [address] Phone: tel: fax: Referral ID Status Reason Start Date Expiration Date V isits Requested Visits Authorized [id number] Closed Consult and Treat 09/26/2024 03/25/2025 1 1 [facility] for [facility] Narrative* CV Imaging (Routine) - Authorized Specialty Diagnoses / Procedures Referred By Contac t Referred To Contact Cardiology Diagnoses Shortness of breath Syncope and collapse Procedures Transthoracic Echo (TTE) Complete [facility] ECHO TTHRC R-T 2D W/WOM-MODE COMPL SPEC&COLR D Elli Valdivia MD [address] [facility] [address] [place] [address] Phone: tel: fax: Referral ID Status Reason Start Date Expiration Date Visits Requested Visits Authorized [id number] Authorized Perform Procedure 10/17/2024 10/17/2025 1 1 [facility] Work Phone: Reason for visit Narrative* Imaging (Routine) - Not Required - RTA Specialty Diagnoses / Procedures Referred By Contac t Referred To Contact Radiology Diagnoses Decreased urine output Procedures US RENAL COMPLETE Mariola Marcelino APRN - ADMINISTRATION VICE PRESIDENT [address] [place] [address] Phone: tel: fax: Referral ID Status Reason Start Date Expiration Date V isits Requested Visits Authorized [id number] Not Required - RTA 01/28/2025 01/28/2026 1 1 [facility] Advance Directives No Advanced Directives Records FoundDocuments on File Type Date Recorded Patient Nursing Technician Expl anation ACP-Advance Directive ACP-Power of Char Filter Tank Tender Documents on File Type Date Recorded Patient Nursing Technician Expl anation Advance Directives and Living Will Power of Char Filter Tank Tender Documents on File Type Date Recorded Patient Nursing Technician Expl anation ACP-Advance Directive ACP-Power of Char Filter Tank Tender Latest Code Status on File Code Status Date Activated Date Inactivated Comments Full Code 07/15/2022 6:55 AM Date Activated Date Inactivated Comments 01/16/2023 6:55 AM 01/16/2023 2:36 PM Date Activated Date Inactivated Comments 07/15/2022 6:55 AM 07/15/2022 1:00 PM Date Activated Date Inactivated Comments 07/05/2024 7:03 AM Date Activated Date Inactivated Comments 01/16/2023 6:55 AM 01/16/2023 2:36 PM Date Activated Date Inactivated Comments 07/15/2022 6:55 AM 07/15/2022 1:00 PM Date Activated Date Inactivated Comments 07/05/2024 7:03 AM 07/05/2024 2:10 PM Date Activated Date Inactivated Comments 01/16/2023 6:55 AM 01/16/2023 2:36 PM Date Activated Date Inactivated Comments 07/15/2022 6:55 AM 07/15/2022 1:00 PM Date Activated Date Inactivated Comments 07/05/2024 7:03 AM 07/05/2024 2:10 PM Summary Purpose Family History No Family History Records FoundNo Family History Records FoundNo Family History Records FoundNo Family History Records FoundNo Family History Records FoundNo Family History Records FoundNo Family History Records Found Reason for Referral Specialty Diagnoses / Procedures Referred By Kaden moscoso Referred To Contact Radiology Diagnoses Breast pain, right Procedures US BREAST LIMITED RIGHT Dustin Davidson, [employer] - CN [address] [facility] [address] [place] [address] Referral ID Status Reason Start Date Expiration Date Visits Re quested Visits Authorized [id number] Closed 03/03/2022 03/03/2023 1 1 Additional Source Comments INFORMATION SOURCE (unrecogn ized section and content) DATE CREATED AUTHOR 05/20/2021 [facility] DATE CREATED AUTHOR AUTHOR'S ORGANIZ ATION 01/02/2025 [facility] DATE CREATED AUTHOR AUTHOR'S ORGANIZ ATION 01/17/2025 [facility] DATE CREATED AUTHOR AUTHOR'S ORGANIZ ATION 03/09/2025 [facility] DATE CREATED AUTHOR AUTHOR'S ORGANIZ ATION 04/03/2025 [facility] DATE CREATED AUTHOR AUTHOR'S ORGANIZ ATION 04/11/2025 [facility] DATE CREATED AUTHOR AUTHOR'S ORGANIZ ATION 04/21/2025 [facility] Reason for Visit (unrecogniz ed section and content) Specialty Diagnoses / Procedures Referred By Contac t Referred To Contact Radiology Diagnoses Breast pain, right Procedures US BREAST LIMITED RIGHT Davidson, Dustin Jay, [employer] - CNM [address] [facility] [address] [place] [address] Referral ID Status Reason Start Date Expiration Date Visits Re quested Visits Authorized [id number] Closed 03/03/2022 03/03/2023 1 1 Specialty Diagnoses / Procedures Referred By Contac t Referred To Contact Diagnoses Pelvic pain PELVIC PAIN, DYSPAREUNIA Procedures VA LAP,FULGURATE/EXCISE LESIONS LAPAROSCOPY EXPLORATORY-DIAGNOSTIC, LYSIS OF ADHESIONS, ABLATION OF ENDOMETRIOSIS Kirsten Mistry, DO [address] [place] [address] [facility] [address] [place] [address] Referral ID Status Reason Start Date Expiration Date Visits Re quested Visits Authorized [id number] 1 1 Specialty Diagnoses / Procedures Referred By Contac t Referred To Contact Diagnoses Endometriosis Endometriosis [N80.9] Procedures VA LAPAROSCOPY W/RMVL ADNEXAL STRUCTURES OOPHORECTOMY LAPAROSCOPIC Kirsten Mistry, DO [address] [place] [address] [facility] [address] [place] [address] Referral ID Status Reason Start Date Expiration Date Visits Re quested Visits Authorized [id number] 1 1 Reason Comments New Patient Visit Abn EKG, chest pain, dizziness Specialty Diagnoses / Procedures Referred By Contac t Referred To Contact Diagnoses Other chest pain Palpitations Procedures ECG 12 Lead Elli Valdivia MD [address] [facility] [address] [place] [address] Phone: tel: fax: Referral ID Status Reason Start Date Expiration Date V isits Requested Visits Authorized [id number] Authorized 08/08/2024 08/08/2025 1 1 Reason Comments Follow-up Pt states she had he r ovaries removed June 2024. No hospital stays. Pt needs refills. Reason Comments Follow-up Test results Specialty Diagnoses / Procedures Referred By Kaden moscoso Referred To Contact Cardiology Diagnoses Dizziness Procedures Follow Up In Cardiology Elli Valdivia MD [address] [place] [address] Phone: tel: fax: Elli Valdivia MD [address] [place] [address] Phone: tel: fax: Referral ID Status Reason Start Date Expiration Date V isits Requested Visits Authorized [id number] Authorized 08/08/2024 08/08/2025 1 1 Reason Comments Follow-up 6/8 week results for echo Specialty Diagnoses / Procedures Referred By Kaden moscoso Referred To Contact Cardiology Diagnoses Syncope and collapse Procedures Follow Up In Cardiology Elli Valdivia MD [address] [place] [address] Phone: tel: fax: Elli Valdivia MD [address] [place] [address] Phone: tel: fax: Referral ID Status Reason Start Date Expiration Date V isits Requested Visits Authorized [id number] Authorized 09/19/2024 09/19/2025 1 1 Reason Comments Dizziness Audio 03/10/25 Reason Comments vertebrobasilar insufficiency 3 week fol low up [facility] 03/26/25 Care Teams (unrecognized sec tion and content) Certified [employer] Engineer Relationship Specialty Start Date End Date Fabiola Moralez MD [address] [place], [place] [id number] PCP - General Internal Medicine 01/04/16 Certified [employer]ell Engineer Relationship Specialty Start Date End Date Fabiola Moralez MD [address] [place], [place] [id number] PCP - General Internal Medicine 01/04/16 Certified Novell Engineer Relationship Specialty Start Date End Date Fabiola Moralez MD [address] [place] [address] PCP - General Internal Medicine 01/04/16 Certified Novell Engineer Relationship Specialty Start Date End Date Fabiola Moralez MD [address] [place] [address], [place] [address] PCP - General Internal Medicine 01/04/16 Certified Novell Engineer Relationship Specialty Start Date End Date Fabiola Moralez MD [address] [place] [address] PCP - General Internal Medicine 01/04/16 Certified Novell Engineer Relationship Specialty Start Date End Date Fabiola Moralez MD [address] [place], [place] [id number] PCP - General Internal Medicine 07/16/24 Certified Novell Engineer Relationship Specialty Start Date End Date Fabiola Moralez MD [address] [place] [address] PCP - General Internal Medicine 07/16/24 Certified Novell Engineer Relationship Specialty Start Date End Date Fabiola Moralez MD [address] [place], [place] [id number] PCP - General Internal Medicine 07/16/24 Certified Novell Engineer Relationship Specialty Start Date End Date Fabiola Moralez MD [address] [place] [address] PCP - General Internal Medicine 07/16/24 Certified Novell Engineer Relationship Specialty Start Date End Date Fabiola Moralez MD [address] [place] [address] PCP - General Internal Medicine 07/16/24 Certified Novell Engineer Relationship Specialty Start Date End Date Fabiola Moralez MD [address] [place], [place] [phone] PCP - General Internal Medicine 07/16/24 Certified Novell Engineer Relationship Specialty Start Date End Date Fabiola Moralez MD [address] [place], [place] [phone] PCP - General Internal Medicine 09/23/24 Certified Novell Engineer Relationship Specialty Start Date End Date Fabiola Moralez MD [address] [place], [place] [phone] PCP - General Internal Medicine 07/16/24 Certified Novell Engineer Relationship Specialty Start Date End Date Fabiola Mroalez MD [address] [place], [place] [id number] PCP - General Internal Medicine 07/16/24 Certified Novell Engineer Relationship Specialty Start Date End Date Fabiola Moralez MD [address] [place], [place] [phone] PCP - General Internal Medicine 01/04/16 Certified Novell Engineer Relationship Specialty Start Date End Date Mariola Marcelino APRN - GREG [address] [place], [place] [id number] PCP - General Internal Medicine 01/21/25 Certified Novell Engineer Relationship Specialty Start Date End Date Mariola Marcelino APRN - CNP [address] [place], [place] [id number] PCP - General Internal Medicine 01/21/25 Certified Novell Engineer Relationship Specialty Start Date End Date Fabiola Moralez MD [address] [place], [place] [phone] PCP - General Internal Medicine 09/23/24 Fabiola Alvares DO [address] [place], [place] [phone] Referring Physician Neurology 10/31/24 Certified Novell Engineer Relationship Specialty Start Date End Date Fabiola Moralez MD [address] [place], [place] [phone] PCP - General Internal Medicine 09/23/24 Fabiola Alvares DO [address] [place], [place] [phone] Referring Physician Neurology 10/31/24 Certified Novell Engineer Relationship Specialty Start Date End Date Fabiola Moralez MD [address] [place], [place] [phone] PCP - General Internal Medicine 09/23/24 Fabiola Alvares DO [address] [place] [id number] Referring Physician Neurology 10/31/24 Certified Novell Engineer Relationship Specialty Start Date End Date Fabiola Moralez MD [address] [place], [place] [phone] PCP - General Internal Medicine 09/23/24 Fabiola Alvares DO [address] [address] Referring Physician Neurology 10/31/24 Certified Novell Engineer Relationship Specialty Start Date End Date Mariola Marcelino APRN - ADMINISTRATION VICE PRESIDENT [address] [place] [address] PCP - General Internal Medicine 01/21/25 Ordered Prescriptions (unrec ognized section and content) Prescription Sig Dispensed Refills Start Date End Da te HYDROcodone-acetaminophe n (NORCO) 5-325 MG per tabletIndications:Post-o p pain Take 1 tablet by mouth every 4-6 hours as needed for Pain for up to 3 days. Intended supply: 3 days. Take lowest dose possible to manage pain 12 tablet 0 07/15/2022 07/18/2022 Prescription Sig Dispensed Refills Start Date End Da te estrogens, conjugated, (PREMARIN) 0.3 MG tablet Take 1 tablet by mouth daily 30 tablet 5 07/05/2024 HYDROcodone-acetaminophe n (NORCO) 5-325 MG per tabletIndications:Postop erative pain Take 1 tablet by mouth every 6 hours as needed for Pain for up to 5 days. Intended supply: 5 days. Take lowest dose possible to manage pain Max Daily Amount: 4 tablets 6 tablet 07/05/2024 07/10/2024 ketorolac (TORADOL) 10 MG tablet Take 1 tablet by mouth every 6 hours as needed for Pain 14 tablet 07/05/2024 07/05/2025 Scheduled Active and Recently Administ ered Medications (unrecognized section and content) Medication Order 07/13/2022 07/14/2022 07/15/2022 acetaminophen (TYLENOL) tablet 650 mg (COMPLETED) 650 mg, Oral, ONCE, 1 dose, On Mon07/15/22 at 0715, Maximum dose of acetaminophen is 4000 mg from all sources in 24 hours., Pre-op (day of surgery) 721 (Given - Provid er: Rik Ferris RN) ceFAZolin (ANCEF) 2000 mg in dextrose 3 % 50 mL IVPB (duplex) (COMPLETED) 2,000 mg, IntraVENous, EMERGENCY REGISTRAR TO O.R., 1 dose, On Mon07/15/22 at 0715, Antimicrobial Indications: Surgical Prophylaxis, Administer within 1 hour prior to incision., Pre-op (day of surgery) 809 (Given - Provid er: Josse Menezes, [employer] - CIVIL DIV[employer] COMMANDER DEPUTY SHERIFF) dimenhyDRINATE (DRAMAMINE) tablet 50 mg (COMPLETED) 50 mg, Oral, ONCE, 1 dose, On Mon07/15/22 at 0715, Pre-op (day of surgery) 721 (Given - Provid er: Rik Ferris RN) sodium chloride flush 0.9 % injection 5-40 mL 5-40 mL, IntraVENous, EVERY 12 HOURS SCHEDULED (2 times per day), First dose on Mon07/15/22 at 1000, Until Discontinued, For Line Patency: Peripheral IV = 5 mL; Midline or Central Line = 10 mL/lumen. If following IV push medication, administer flush at same rate as the IV push. Flush volume is determined by type of infusion therapy being given. For non-viscous solutions use: Peripheral IV = 5 mL Midline or Central Line = 10 mL/lumen For viscous solutions (i.e. blood components, parenteral nutrition, contrast media, or after obtaining blood sample) use: Peripheral IV = 10 mL Midline or Central Line = 20 mL/lumen 1000 (Due)2100 (Due) sodium chloride flush 0.9 % injection 5-40 mL 5-40 mL, IntraVENous, EVERY 12 HOURS SCHEDULED (2 times per day), First dose on Mon07/15/22 at 1000, Until Discontinued, For Line Patency: Peripheral IV = 5 mL; Midline or Central Line = 10 mL/lumen. If following IV push medication, administer flush at same rate as the IV push. Flush volume is determined by type of infusion therapy being given. For non-viscous solutions use: Peripheral IV = 5 mL Midline or Central Line = 10 mL/lumen For viscous solutions (i.e. blood components, parenteral nutrition, contrast media, or after obtaining blood sample) use: Peripheral IV = 10 mL Midline or Central Line = 20 mL/lumen, PACU only 1000 (Due)2100 (Due) Continuous Medication Order 07/13/2022 07/14/2022 07/15/2022 lactated ringers infusion IntraVENous, at 100 mL/hr, CONTINUOUS, Starting on Mon07/15/22 at 0830 0803 (New Bag - Prov ider: Serena Dominique RN)0811 (NoRateChange - Provider: FABIÁN Pena CRNA)0900 (Anesthesia Volume Adjustment - Provider: FABIÁN Pena CRNA) PRN Medication Order 07/13/2022 07/14/2022 07/15/2022 0.9 % sodium chloride infusion IntraVENous, at 5-250 mL/hr, PRN, if patient receiving piggyback infusions and maintenance fluids are not ordered OR KVO fluids to protect IV site / prevent frequent line interruptions/ long duration, Starting on Mon07/15/22 at 0933, For piggyback infusion, administer at same rate as piggyback for a total of 25 mL. Enter 25 mL into dose field and piggyback rate into rate field of order. If piggyback is infusing at a rate less than 100 mL/hr, enter 25 mL into dose field and 100 mL/hr into rate field of order. For KVO fluids, enter rate of 20 mL/hr or less into rate field of order. 0.9 % sodium chloride infusion IntraVENous, at 5-250 mL/hr, PRN, if patient receiving piggyback infusions and maintenance fluids are not ordered OR KVO fluids to protect IV site / prevent frequent line interruptions/ long duration, Starting on Mon07/15/22 at 0933, For piggyback infusion, administer at same rate as piggyback for a total of 25 mL. Enter 25 mL into dose field and piggyback rate into rate field of order. If piggyback is infusing at a rate less than 100 mL/hr, enter 25 mL into dose field and 100 mL/hr into rate field of order. For KVO fluids, enter rate of 20 mL/hr or less into rate field of order., PACU only fentaNYL (SUBLIMAZE) injection 50 mcg 50 mcg, IntraVENous, EVERY 5 MIN PRN, 2 doses, Starting on Mon07/15/22 at 0933, Until Discontinued, Pain Moderate (4-6), Pain Severe (7-10), For Phase I. If Phase II oral narcotics have been administered in the last 60 minutes, do not administer IV narcotics unless specifically approved by provider., PACU only sodium chloride flush 0.9 % injection 5-40 mL 5-40 mL, IntraVENous, PRN, Starting on Mon07/15/22 at 0933, Until Discontinued, Line Care, After every IV line use, For Line Patency: Peripheral IV = 5 mL; Midline or Central Line = 10 mL/lumen. If following IV push medication, administer flush at same rate as the IV push. Flush volume is determined by type of infusion therapy being given. For non-viscous solutions use: Peripheral IV = 5 mL Midline or Central Line = 10 mL/lumen For viscous solutions (i.e. blood components, parenteral nutrition, contrast media, or after obtaining blood sample) use: Peripheral IV = 10 mL Midline or Central Line = 20 mL/lumen sodium chloride flush 0.9 % injection 5-40 mL 5-40 mL, IntraVENous, PRN, Starting on Mon07/15/22 at 0933, Until Discontinued, Line Care, After every IV line use, For Line Patency: Peripheral IV = 5 mL; Midline or Central Line = 10 mL/lumen. If following IV push medication, administer flush at same rate as the IV push. Flush volume is determined by type of infusion therapy being given. For non-viscous solutions use: Peripheral IV = 5 mL Midline or Central Line = 10 mL/lumen For viscous solutions (i.e. blood components, parenteral nutrition, contrast media, or after obtaining blood sample) use: Peripheral IV = 10 mL Midline or Central Line = 20 mL/lumen, PACU only Scheduled Medication Order 07/03/2024 07/04/2024 07/05/2024 acetaminophen (TYLENOL) tablet 650 mg (COMPLETED) 650 mg, Oral, ONCE, 1 dose, On Mon07/05/24 at 0730, Maximum dose of acetaminophen is 4000 mg from all sources in 24 hours., Pre-op (day of surgery) 727 (Given - Provid er: Maame Reynolds RN) albuterol (PROVENTIL) (2.5 MG/3ML) 0.083% nebulizer solution 2.5 mg (COMPLETED) 2.5 mg, Nebulization, ONCE, 1 dose, On Mon07/05/24 at 1045, Initiate RT Bronchodilator Protocol: No 1024 (Given - Provid er: Marline Singh RN - Comment: administered by Regina, RT) ceFAZolin (ANCEF) 2000 mg in 0.9% sodium chloride 100 mL IVPB (COMPLETED) 2,000 mg, IntraVENous, EMERGENCY REGISTRAR TO O.R., 1 dose, On Mon07/05/24 at 0730, Antimicrobial Indications: Surgical Prophylaxis, Administer within 1 hour prior to incision., Pre-op (day of surgery) 912 (New Bag - Prov ider: Duyen Davis RN)0943 (Due: Stopped - Provider: Duyen Davis RN) dimenhyDRINATE (DRAMAMINE) tablet 50 mg (COMPLETED) 50 mg, Oral, ONCE, 1 dose, On Mon07/05/24 at 0730, Pre-op (day of surgery) 727 (Given - Provid er: Maame Reynolds RN) gabapentin (NEURONTIN) capsule 300 mg (COMPLETED) 300 mg, Oral, ONCE, 1 dose, On Mon07/05/24 at 0730, Pre-op (day of surgery) 727 (Given - Provid er: Maame Reynolds RN) sodium chloride flush 0.9 % injection 5-40 mL 5-40 mL, IntraVENous, EVERY 12 HOURS SCHEDULED (2 times per day), First dose on Mon07/05/24 at 0900, Until Discontinued, For Line Patency: Peripheral IV = 5 mL; Midline or Central Line = 10 mL/lumen. If following IV push medication, administer flush at same rate as the IV push. Flush volume is determined by type of infusion therapy being given. For non-viscous solutions use: Peripheral IV = 5 mL Midline or Central Line = 10 mL/lumen For viscous solutions (i.e. blood components, parenteral nutrition, contrast media, or after obtaining blood sample) use: Peripheral IV = 10 mL Midline or Central Line = 20 mL/lumen, Pre-op (day of surgery) 0900 (Due)2099 (Due) sodium chloride flush 0.9 % injection 5-40 mL 5-40 mL, IntraVENous, EVERY 12 HOURS SCHEDULED (2 times per day), First dose on Mon07/05/24 at 1030, Until Discontinued, For Line Patency: Peripheral IV = 5 mL; Midline or Central Line = 10 mL/lumen. If following IV push medication, administer flush at same rate as the IV push. Flush volume is determined by type of infusion therapy being given. For non-viscous solutions use: Peripheral IV = 5 mL Midline or Central Line = 10 mL/lumen For viscous solutions (i.e. blood components, parenteral nutrition, contrast media, or after obtaining blood sample) use: Peripheral IV = 10 mL Midline or Central Line = 20 mL/lumen, PACU only 1030 (Due)2100 (Due) Continuous Medication Order 07/03/2024 07/04/2024 07/05/2024 lactated ringers IV soln infusion IntraVENous, at 125 mL/hr, CONTINUOUS, Starting on Mon07/05/24 at 0730, Pre-op (day of surgery) 0735 (New Bag - Prov ider: Maame L Zahner, RN)0916 (NoRateChange - Provider: Tessie Lorenzo APRN - [employer])1125 (Stopped - Provider: Marline Singh RN) lactated ringers IV soln infusion IntraVENous, at 100 mL/hr, CONTINUOUS, Starting on Mon07/05/24 at 0730, Pre-op (day of surgery) 0730 (Due) PRN Medication Order 07/03/2024 07/04/2024 07/05/2024 0.9 % sodium chloride infusion IntraVENous, at 5-250 mL/hr, PRN, if patient receiving piggyback infusions and maintenance fluids are not ordered OR KVO fluids to protect IV site / prevent frequent line interruptions/ long duration, Starting on Mon07/05/24 at 0702, For piggyback infusion, administer at same rate as piggyback for a total of 25 mL. Enter 25 mL into dose field and piggyback rate into rate field of order. If piggyback is infusing at a rate less than 100 mL/hr, enter 25 mL into dose field and 100 mL/hr into rate field of order. For KVO fluids, enter rate of 20 mL/hr or less into rate field of order., Pre-op (day of surgery) 0.9 % sodium chloride infusion IntraVENous, at 5-250 mL/hr, PRN, if patient receiving piggyback infusions and maintenance fluids are not ordered OR KVO fluids to protect IV site / prevent frequent line interruptions/ long duration, Starting on Mon07/05/24 at 1014, For piggyback infusion, administer at same rate as piggyback for a total of 25 mL. Enter 25 mL into dose field and piggyback rate into rate field of order. If piggyback is infusing at a rate less than 100 mL/hr, enter 25 mL into dose field and 100 mL/hr into rate field of order. For KVO fluids, enter rate of 20 mL/hr or less into rate field of order., PACU only fentaNYL (SUBLIMAZE) injection 50 mcg 50 mcg, IntraVENous, EVERY 5 MIN PRN, 2 doses, Starting on Mon07/05/24 at 1014, Until Discontinued, Pain Severe (7-10), Pain Moderate (4-6), For Phase I. If Phase II oral narcotics have been administered in the last 60 minutes, do not administer IV narcotics unless specifically approved by provider., PACU only 1041 (Given - Provid er: Marline Singh RN) HYDROcodone-acetaminophen (NORCO) 5-325 MG per tablet 1 tablet 1 tablet, Oral, EVERY 6 HOURS PRN, Starting on Mon07/05/24 at 1014, Until Discontinued, Pain Moderate (4-6), Pain Severe (7-10), Maximum dose of acetaminophen is 4000 mg from all sources in 24 hours., PACU & Post-op 1125 (Given - Provid er: Marline Singh RN) naloxone 0.4 mg in 10 mL sodium chloride syringe IntraVENous, PRN, Opioid Reversal, Starting on Mon07/05/24 at 1014, PRN if respiratory rate is less than 6/min and patient is difficult to arouse then notify physician STAT. Mix 9 mL of sodium chloride 0.9% with 0.4 mg (1 mL) of naloxone (NARCAN) in 10 mL syringe. (Note: dilution is 0.04 mg/mL) Give 0.08 mg (2 mL of special dilution), slow IV push, repeat up to 0.4 mg (10 mL) or until patient is responsive to physical stimulation and respiratory rate is equal to or greater than 6 breaths/min. Continue to observe, if no response within 3 minutes of administration of 0.4 mg (10 mL) total, repeat dose (0.4 mg as administered previously). Concentration 0.04 mg/mL, PACU only sodium chloride flush 0.9 % injection 5-40 mL 5-40 mL, IntraVENous, PRN, Starting on Mon07/05/24 at 0702, Until Discontinued, Line Care, After every IV line use, For Line Patency: Peripheral IV = 5 mL; Midline or Central Line = 10 mL/lumen. If following IV push medication, administer flush at same rate as the IV push. Flush volume is determined by type of infusion therapy being given. For non-viscous solutions use: Peripheral IV = 5 mL Midline or Central Line = 10 mL/lumen For viscous solutions (i.e. blood components, parenteral nutrition, contrast media, or after obtaining blood sample) use: Peripheral IV = 10 mL Midline or Central Line = 20 mL/lumen, Pre-op (day of surgery) sodium chloride flush 0.9 % injection 5-40 mL 5-40 mL, IntraVENous, PRN, Starting on Mon07/05/24 at 1014, Until Discontinued, Line Care, After every IV line use, For Line Patency: Peripheral IV = 5 mL; Midline or Central Line = 10 mL/lumen. If following IV push medication, administer flush at same rate as the IV push. Flush volume is determined by type of infusion therapy being given. For non-viscous solutions use: Peripheral IV = 5 mL Midline or Central Line = 10 mL/lumen For viscous solutions (i.e. blood components, parenteral nutrition, contrast media, or after obtaining blood sample) use: Peripheral IV = 10 mL Midline or Central Line = 20 mL/lumen, PACU only FOR RECORDS PERTAINING TO PATIENTS WHO ARE OR HAVE BEEN ENROLLED IN A CHEMICAL DEPENDENCY/SUBSTANCEABUSE PROGRAM, SOME INFORMATION MAY BE OMITTED. This clinical summary was aggregated from multiple sources. Caution should be exercised in using it in the provision of clinical care. This summary normalizes information from multiple sources, and as a consequence, information in this document may materially change the coding, format and clinical context of patient data. In addition, data may be omitted in some cases. CLINICAL DECISIONS SHOULD BE BASED ON THE PRIMARY CLINICAL RECORDS. [employer] [facility]. provides no warranty or guarantee of the accuracy or completeness of information in this document.
[2025-05-30 19:44] VITALS: BP 137/86; PULSE 68; TEMP 37; O2SAT 97; BMI 36.0
--- NOTE | 2025-05-30 19:50 | PC.NURSE ---
Pain to right wrist, no bruising, redness or swelling present. Ice pack applied.
--- NOTE | 2025-05-30 19:54 | XR_ITS ---
The [address] [address] Patient Name: MEHNAZ GILLILAND MRN: [id number] date: 1990 Sex: F Assigned Patient Location: ER Current Patient Location: ER Accession/Order Number: [id number] Exam Date: 05/30/2025 20:02 Report Date: 05/30/2025 20:36 At the request of: KARRIE RODRÍGUEZ Procedure: XR wrist RT min 3V 4 views right wrist plain film COMPARISON: None HISTORY: Right wrist pain. Fell. ACUTE FINDINGS: None DEGENERATIVE CHANGE: Unremarkable SOFT TISSUE FINDINGS: Unremarkable JOINT EFFUSION: None POSTOP CHANGES: None BONE MINERALIZATION: Benign sclerotic bony island distal radius XR/XR wrist RT min 3V IMPRESSION: No acute bony findings. Impression dictated by: Dada Mon M.D. 05/30/2025 8:36 PM Dictation Location: [place] [address] Electronically authenticated by: [id number] Y Date: 05/30/2025 20:36
--- NOTE | 2025-05-30 19:56 | ED.UPPEXIN1 ---
HPI HPI - Extremity Injury (Upper) General Chief Complaint: Extremity Injury, Upper Stated Complaint: Extremity Injury, Upper Time Seen by Provider: 05/30/25 19:47 Source: patient Mode of arrival: walk-in History of Present Illness HPI narrative: Patient presents to the ED complaining of right wrist pain. She states just prior to arriving here she fell on outstretched hand and is sustaining pain to her right wrist area most notably on the radial side. There is no gross deformity no numbness or tingling. She states she has had a previous scaphoid fracture in that wrist. This has been multiple years ago. She has no numbness or tingling in her fingers. She has no skin changes or laceration. No contusion. She has good range of motion of her forearm and elbow. She did not sustain an injury otherwise. Related Data Home Medications ?Medication ?Instructions ?Recorded ?Confirmed conjugated estrogens 0.3 mg tablet mg 07/14/24 (Premarin) loratadine 10 mg tablet 10 mg PO DAILY 07/14/24 07/14/24 (Allerclear) minocycline 50 mg capsule mg 07/14/24 montelukast 10 mg tablet mg 07/14/24 pantoprazole 40 mg tablet,delayed mg PO 07/14/24 release Allergies Allergy/AdvReac Type Severity Reaction Status Date / Time aspirin Allergy Unknown Abdominal Verified 05/30/25 19:44 Pain meloxicam (From Mobic) Allergy Unknown Abdominal Verified 05/30/25 19:44 Pain omeprazole (From Prilosec) Allergy Unknown Abdominal Verified 05/30/25 19:44 Pain oxycodone (From Percocet) Allergy Abdominal Verified 05/30/25 19:44 Pain propoxyphene (From Allergy Abdominal Verified 05/30/25 19:44 Darvocet-N) Pain PFSH PFSH Social History Little interest or pleasure in doing things: not at all Feeling down, depressed, or hopeless: not at all Exam Constitutional Vital Signs, click to edit/add: Last Vital Signs Temp 98.6 F 05/30/25 19:44 Pulse 68 05/30/25 19:44 Resp 20 05/30/25 19:44 BP 137/86 05/30/25 19:44 Pulse Ox 97 05/30/25 19:44 O2 Del Method Room Air 05/30/25 19:44 Documenting provider has reviewed patient's vital signs: yes Common normals: no apparent distress, oriented x3, no limitations and healthy appearing Respiratory Common normals: normal respiratory effort and clear to auscultation bilaterally Cardio Common normals: regular rate, regular rhythm and peripheral pulses 2+ throughout Extremity General: normal exam except as noted Right upper extremity: wrist Right wrist: inspection, palpation (pain to scaphoid area in anatomical snuffbox), ROM (pain ) and neurovascular exam (normal ) Course Vital Signs Vital signs: Vital Signs Temperature 98.6 F 05/30/25 19:44 Pulse Rate 68 05/30/25 19:44 Respiratory Rate 20 05/30/25 19:44 Blood Pressure 137/86 05/30/25 19:44 Pulse Oximetry 97 05/30/25 19:44 Oxygen Delivery Method Room Air 05/30/25 19:44 Temperature 98.6 F 05/30/25 19:44 Pulse Rate 68 05/30/25 19:44 Respiratory Rate 20 05/30/25 19:44 Blood Pressure 137/86 05/30/25 19:44 Pulse Oximetry 97 05/30/25 19:44 Oxygen Delivery Method Room Air 05/30/25 19:44 MDM - Extremity Injury (Upper) MDM Narrative Medical decision making narrative: Patient presents to the ED complaining of right wrist pain. She states just prior to arriving here she fell on outstretched hand and is sustaining pain to her right wrist area most notably on the radial side. There is no gross deformity no numbness or tingling. She states she has had a previous scaphoid fracture in that wrist. This has been multiple years ago. She has no numbness or tingling in her fingers. She has no skin changes or laceration. No contusion. She has good range of motion of her forearm and elbow. She did not sustain an injury otherwise. She does have some pain in the anatomical snuffbox of the right wrist. She has good range of motion otherwise. No gross deformity skin changes or obvious superficial injuries. She has good cap refill distally. She does not have any tenderness in the elbow or hand. X-rays did not show any acute process. Patient was encouraged to wear the thumb spica splint In the event of a possible occult fracture she can follow-up with orthopedics or your family doctor in 7 to 10 days for zee-ray. I discussed this fracture with the patient as well as the importance of follow-up. Can return with any worsening concerning symptoms as well. She will be discharged home in stable condition Medical Records Attestation: I reviewed the patient's medical records. Imaging Data uli wrist: Radiologist's impression: ITS Impressions Wrist X-Ray 05/30/25 19:54 IMPRESSION: No acute bony findings. Impression dictated by: Dada Mon M.D. 05/30/2025 8:36 PM Dictation Location: [facility] Electronically authenticated by: [id number] Y Date: 05/30/2025 20:36 Discharge Plan Discharge Chief Complaint: Extremity Injury, Upper Clinical Impression: Sprain and strain of right wrist, Fall Patient Disposition: Home, Self-Care Time of Disposition Decision: 21:44 Condition: Good Prescriptions / Home Meds: No Action pantoprazole 40 mg tablet,delayed release (DR/EC) PO minocycline 50 mg capsule montelukast 10 mg tablet Premarin 0.3 mg tablet loratadine [Allerclear] 10 mg tablet 10 mg PO DAILY Print Language: Nauruan Instructions: Wrist Injury (ED), Sprain (ED) Additional Instructions: Spica splint as indicated. As discussed you may need to have a zee-ray in 7 to 10 days if pain persist we discussed the possibility of an occult fracture as well which is why is important for you to wear the splint. Follow-up with family doctor or orthopedics in 7 to 10 days. Please return with any worsening or concerning symptoms thank you for allowing us to participate in your care today Referrals: GRETEL MORALEZ [Primary Care Provider, Family Practice] - 1 week Discharge Date/Time: 05/30/25 21:54
== END 2025-05-30 21:54 | disposition home or self-care (01) ==
PROVIDERS: Emergency Provider Internal Medicine; PCP Internal Medicine
DX: S63.501A Unspecified sprain of right wrist, initial encounter (principal); S66.911A Strain of unspecified muscle, fascia and tendon at wrist and hand level, right hand, initial encounter; W01.0XXA Fall on same level from slipping, tripping and stumbling without subsequent striking against object, initial encounter
CPT/HCPCS: 73110; 99283